=== PATIENT | male | born 1960 | race Hispanic/Latino ===

== ENCOUNTER 2016-06-03 07:47 | Day surgery (SDC) | payer MEDICAID ==
[2015-12-03 09:52] VITALS: BMI 37.9
[2016-06-03] MEDS ORDERED: Propofol 10 mg/ml Inj (20 ML) ONE (09:26)
[2016-06-03] MEDS ORDERED: Labetalol 5 mg/ml Inj 20ML IV ONE (10:32)
[2016-06-03] MEDS ORDERED: Labetalol 5 mg/ml Inj 20ML ONE (10:32)
[2016-06-03] MEDS ORDERED: Lactated Ringer's 1,000 ML IV SCH (10:45)
[2016-06-03 11:28] VITALS: TEMP 97
[2016-06-03 12:01] VITALS: BP 183/79; PULSE 83; RESP 16; O2SAT 96
== END 2016-06-03 12:25 | disposition home or self-care (01) ==
LOC: ENDO 07:47
PROVIDERS: ATTEND Internal Medicine
DX: D12.5 Benign neoplasm of sigmoid colon (principal); K64.8 Other hemorrhoids; I10 Essential (primary) hypertension; E11.9 Type 2 diabetes mellitus without complications; H40.9 Unspecified glaucoma; F32.89 Other specified depressive episodes; F41.9 Anxiety disorder, unspecified; Z83.3 Family history of diabetes mellitus; Z80.3 Family history of malignant neoplasm of breast; K58.0 Irritable bowel syndrome with diarrhea; R10.13 Epigastric pain; K76.0 Fatty (change of) liver, not elsewhere classified; Z12.11 Encounter for screening for malignant neoplasm of colon
CPT/HCPCS: 45380; 82948; 88305; J2001; J2704; J7040; J7120

== ENCOUNTER 2017-02-03 01:47 | Observation (INO) | payer MEDICAID ==
[2017-02-03 01:54] VITALS: BMI 39.9
[2017-02-03] MEDS ORDERED: Morphine 2 mg/ml ISec IVP STA (02:01)
[2017-02-03] MEDS ORDERED: Sodium Chloride 0.9% 1,000 ML IV STA (02:01)
--- NOTE | 2017-02-03 02:09 | ED PDOC ---
Arrival/HPI - General Chief Complaint: Abdominal Pain Time Seen by Provider: 02/03/17 01:51 Historian: Patient - History of Present Illness Narrative History of Present Illness (Text): 02/03/17 02:04 Og Vick is a 56 year old male, whose past medical history that includes hypertension, hyperlipidemia, diabetes, and GERD, who presents to the emergency department complaining of vomiting and abdominal pain for a few hours. Patient states that he ate shrimp and became diaphoretic. Patient denies any chest pain , fevers, shortness of breath, or any other complaints at this time. Time/Duration: 4-6 hours Symptom Onset: Gradual Symptom Course: Unchanged Severity Level: Moderate Activities at Onset: Light Context: Home Past Medical History - Provider Review Nursing Documentation Reviewed: Yes - Infectious Disease Hx of Infectious Diseases: None - Tetanus Immunization Tetanus Immunization: Unknown - Cardiac Hx Hypertension: Yes Hx Pacemaker: No - Pulmonary Hx Respiratory Disorders: No - Neurological Hx Neurological Disorder: No Hx Paralysis: No - HEENT Hx HEENT Disorder: No - Renal Hx Renal Disorder: No - Endocrine/Metabolic Hx Endocrine Disorders: Yes Hx Diabetes Mellitus Type 2: Yes - Hematological/Oncological Hx Blood Disorders: No Hx Blood Transfusions: No - Integumentary Hx Dermatological Disorder: Yes Other/Comment: BOTH LEGS WITH CHRONIC VASCULAR, AND DIABETIC SWELLING. NO OPEN ULCERATIONS AT PRESENT. LEFT FACIAL FADING ECCYMOSIS ABOVE LIP AND CHEEK - Musculoskeletal/Rheumatological Hx Musculoskeletal Disorders: No - Gastrointestinal Hx Gastrointestinal Disorders: Yes Hx Gastroesophageal Reflux: Yes - Genitourinary/Gynecological Hx Genitourinary Disorders: No - Psychiatric Hx Anxiety: Yes Hx Emotional Abuse: No Hx Substance Use: No - Past Surgical History Past Surgical History: No Previous - Surgical History Hx Tonsillectomy: Yes - Anesthesia Hx Anesthesia Reactions: No Hx Malignant Hyperthermia: No - Suicidal Assessment Feels Threatened In Home Enviroment: No Family/Social History - Physician Review Nursing Documentation Reviewed: Yes Family/Social History: No Known Family HX Smoking Status: Former Smoker Hx Alcohol Use: No Hx Substance Use: No Hx Substance Use Treatment: No Allergies/Home Meds Allergies/Adverse Reactions: Allergies Penicillins Allergy (Verified 02/03/17 13:25) ANAPHYLAXIS Home Medications: Home Meds Medication Instructions Recorded Confirmed Furosemide [Lasix] 40 mg PO DAILY 03/09/15 02/03/17 Metoprolol Succinate [Toprol Xl] 50 mg PO BID 03/09/15 02/03/17 Aspirin [Ecotrin] 81 mg PO DAILY 07/28/15 02/03/17 Gabapentin [Neurontin] 400 mg PO QID 07/28/15 02/03/17 Simvastatin [Zocor] 40 mg PO DAILY 07/28/15 02/03/17 Insulin Regular [HumuLIN R] 30 units SC TID 12/03/15 02/03/17 hydrALAZINE [Apresoline] 100 mg PO TID 12/03/15 02/03/17 Alprazolam [Xanax] 0.5 mg PO DAILY PRN 05/29/16 02/03/17 Liraglutide [Victoza 2-Long] 18 mg SC DAILY 05/29/16 02/03/17 Pantoprazole [Protonix EC Tab] 40 mg PO DAILY 05/29/16 02/03/17 Sertraline [Zoloft] 100 mg PO DAILY 05/29/16 02/03/17 Acetaminophen with Codeine 300 mg PO BID 02/03/17 02/03/17 [Acetamin-Codein 300-30 mg/12.5] Insulin Glargine,Hum.rec.anlog 90 unit SQ HS 02/03/17 02/03/17 [Basaglar Kwikpen U-100] [place]-3 Fatty Acids/Fish Oil [Fish 1 each PO QID 02/03/17 02/03/17 Oil 1,000 mg Softgel] Review of Systems - Physician Review All systems were reviewed & negative as marked: Yes - Review of Systems Constitutional: absent: Fevers, Night Sweats Eyes: absent: Vision Changes ENT: absent: Hearing Changes Respiratory: absent: SOB, Cough Cardiovascular: absent: Chest Pain Gastrointestinal: Abdominal Pain, Vomiting Genitourinary Male: absent: Dysuria Musculoskeletal: absent: Arthralgias Skin: absent: Rash, Pruritis Neurological: absent: Headache, Dizziness Endocrine: absent: Diaphoresis Hemo/Lymphatic: absent: Adenopathy Psychiatric: absent: Anxiety, Depression Physical Exam Vital Signs Reviewed: Yes Vital Signs Temp Pulse Resp BP Pulse Ox 02/03/17 11:02 86 120/80 02/03/17 10:10 85 16 120/80 96 02/03/17 09:10 80 16 111/63 95 02/03/17 08:00 82 16 112/67 96 02/03/17 07:15 86 16 121/75 96 02/03/17 04:15 88 16 124/64 96 02/03/17 02:02 134/67 02/03/17 01:58 97.8 F 84 20 95 Temperature: Afebrile Blood Pressure: Normal Pulse: Regular Respiratory Rate: Normal Appearance: Positive for: Well-Appearing, Non-Toxic, Comfortable Pain Distress: None Mental Status: Positive for: Alert and Oriented X 3 - Systems Exam Head: Present: Atraumatic, Normocephalic Pupils: Present: PERRL Extroacular Muscles: Present: EOMI Conjunctiva: Present: Normal Mouth: Present: Moist Mucous Membranes Neck: Present: Normal Range of Motion Respiratory/Chest: Present: Clear to Auscultation, Good Air Exchange. No: Respiratory Distress, Accessory Muscle Use Cardiovascular: Present: Regular Rate and Rhythm, Normal S1, S2. No: Murmurs Abdomen: Present: Tenderness, Distention (Abdomen diffusely distended and tender ) Back: Present: Normal Inspection Upper Extremity: Present: Normal Inspection. No: Cyanosis, Edema Lower Extremity: Present: Normal Inspection. No: Edema Neurological: Present: GCS=15, CN II-XII Intact, Speech Normal Skin: Present: Warm, Dry, Normal Color. No: Rashes Psychiatric: Present: Alert, Oriented x 3, Normal Insight, Normal Concentration Medical Decision Making ED Course and Treatment: 02/03/17 02:18 Impression: 56 year old male complaining of vomiting and abdominal pain for a few hours. Differential Diagnosis included but are not limited to: Plan: -- EKG -- Abdomen and Pelvis CT w/o contrast -- Blood Culture -- Urinalysis -- Labs -- Morphine, Zofran, and IV fluids -- Reassess and disposition Prior Visits: Notes and results from previous visits were reviewed. Patient was last seen in the emergency department on 12/03/15 for 2 day duration of abdominal pain and vomiting. Patient was admitted to hospitalist care for further evaluation. Progress Notes: EKG: Ordered, reviewed, and independently interpreted the EKG. Rate : 84 BPM Rhythm : NSR Interpretation : Non-specific ST-T wave changes. 02/03/17 04:29 Case discussed with medical representative, and dr rodríguez who accepts patient admission to telemetry observation for intractable vomiting. 02/04/17 00:15 - Lab Interpretations Lab Results: 02/03/17 02:22 02/03/17 02:22 Lab Results 02/03/17 04:35: PT 11.0, INR 1.01, APTT 27.4 02/03/17 03:25: Urine Color Yellow, Urine Appearance Clear, Urine pH 6.5, Ur Specific [place] 1.020, Urine Protein Trace H, Urine Glucose (UA) 500 H, Urine Ketones Negative, Urine Blood Negative, Urine Nitrate Negative, Urine Bilirubin Negative, Urine Urobilinogen 0.2, Ur Leukocyte Esterase Negative, Urine RBC 0 - 2, Urine WBC 1 - 3, Ur Epithelial Cells 0 - 2, Urine Bacteria Few 02/03/17 02:22: Hemoglobin A1c 7.9 H 02/03/17 02:22: Magnesium 1.2 L, Triglycerides 344 H, Cholesterol 202 H, LDL Cholesterol Direct 120, HDL Cholesterol 39 02/03/17 02:22: Sodium 141, Potassium 3.4 L, Chloride 96 L, Carbon Dioxide 32, Anion Gap 17, BUN 21, Creatinine 0.8, Est GFR ( Amer) > 60, Est GFR (Non- Af Amer) > 60, Random Glucose 297 H, Calcium 9.3, Total Bilirubin 0.5, AST 38, ALT 61 H, Alkaline Phosphatase 93, Lactate Dehydrogenase 582, Total Creatine Kinase 84, Troponin I < 0.01 D, Total Protein 7.2, Albumin 4.5, Globulin 2.8, Albumin/Globulin Ratio 1.6, Amylase 44, Lipase 281 02/03/17 02:22: WBC 9.3, RBC 4.43, Hgb 12.9 L, Hct 39.6 L, MCV 89.4, MCH 29.1, MCHC 32.6, RDW 13.7, Plt Count 250, MPV 10.5, Gran % 66.7, Lymph % (Auto) 23.5, [place] % (Auto) 5.3, Eos % (Auto) 3.7, Baso % (Auto) 0.8, Gran # 6.18, Lymph # 2.2 , [place] # 0.5, Eos # 0.3, Baso # 0.07 02/03/17 01:58: POC Glucose (mg/dL) 279 H I have reviewed the lab results: Yes - RAD Interpretation Radiology Orders: 02/03/17 02:01 ABD & PELVIS W/O PO OR IV CONT [CT] Stat 02/03/17 04:25 CHEST PORTABLE [RAD] Stat - Medication Orders Current Medication Orders: Acetaminophen (Tylenol 325mg Tab) 325 mg PO BID [facility] Last Admin: 02/03/17 19:33 Dose: 325 mg [facility] Pain/Vitals Document 02/03/17 19:33 VS (Rec: 02/03/17 19:33 VS [place] [id number]) Pain Reassessment Is This A Pain ReAssessment? No Presence of Pain Presence of Pain Yes Location Upper or Lower Lower Pain Location Body Site Back Description Constant Intensity 6 Scale Used Numeric Pain Behavior Facial Grimacing Aggravating Factors None Re-Assess: [facility] Pain/Vitals Document 02/03/17 20:33 VS (Rec: 02/03/17 21:43 VS [place] [id number]) Pain Reassessment Is This A Pain ReAssessment? Yes Sleep Is patient sleeping during reassessment? No Presence of Pain Presence of Pain No Alprazolam (Xanax) 0.5 mg PO DAILY PRN; Protocol PRN Reason: Anxiety Aspirin (Ecotrin) 81 mg PO DAILY [facility] Last Admin: 02/03/17 09:14 Dose: 81 mg Atorvastatin Calcium (Lipitor) 20 mg PO DIN [facility] Last Admin: 02/03/17 17:42 Dose: 20 mg Codeine Sulfate (Codeine) 30 mg PO BID [facility] Last Admin: 02/03/17 19:32 Dose: 30 mg [facility] Pain Assessment Document 02/03/17 19:32 VS (Rec: 02/03/17 19:33 VS [place] [id number]) Pain Reassessment Is this a pain reassessment? No Presence of Pain Presence of Pain Yes Pain Scale Used Pain Scale Used Numeric Location Upper or Lower Lower Pain Location Body Site Back Description Description Constant Intensity of Pain at present 6 Acceptable Level of Pain 3 Pain Behavior Facial Grimacing Aggravating Factors None Alleviating Factors/Management Medication Techniques Re-Assess: [facility] Pain Assessment Document 02/03/17 20:32 VS (Rec: 02/03/17 21:34 VS [place] [id number]) Pain Reassessment Is this a pain reassessment? Yes Sleep Is patient sleeping during reassessment? No Presence of Pain Presence of Pain No Cyclobenzaprine HCl (Flexeril) 5 mg PO HS [facility] Last Admin: 02/03/17 21:41 Dose: 5 mg Famotidine (Pepcid) 20 mg IVP DAILY [facility] Last Admin: 02/03/17 09:12 Dose: Not Given Non-Admin Reason: Patient Refused Gabapentin (Neurontin) 400 mg PO QID [facility] PRN Reason: Protocol Last Admin: 02/03/17 21:41 Dose: 400 mg Behavioural Document 02/03/17 21:41 VS (Rec: 02/03/17 21:41 VS [id number]) Maintenance Maintenance Dose Yes Re-Assess: Reassess Psych Meds Document 02/03/17 22:41 (Rec: 02/03/17 23:54 [id number]) Reassess Psych Med Effective Heparin Sodium (Porcine) (Heparin) 5,000 units SC Q8 [facility] PRN Reason: Protocol Last Admin: 02/03/17 21:42 Dose: 5,000 units Subcutaneous Administrations Document 02/03/17 21:42 VS (Rec: 02/03/17 21:42 VS [id number]) Injection Site MAR Injection Site Left Abdomen Charges for Administration # of Subcutaneous Administrations 1 Hydralazine HCl (Apresoline) 100 mg PO TID [facility] Last Admin: 02/03/17 17:41 Dose: 100 mg MAR Pulse and Blood Pressure Document 02/03/17 17:41 SG (Rec: 02/03/17 17:42 SG [id number]) Pulse Pulse Rate (60-90) 81 Blood Pressure Blood Pressure (100/60-150/90) 114/59 Insulin Detemir (Levemir) 30 unit SC [facility] Last Admin: 02/03/17 21:41 Dose: 30 unit MAR Blood Glucose Document 02/03/17 21:41 VS (Rec: 02/03/17 21:42 VS [id number]) Blood Glucose Finger Stick Blood Glucose (70-120) 216 Subcutaneous Administrations Document 02/03/17 21:41 VS (Rec: 02/03/17 21:42 VS [id number]) Injection Site MAR Injection Site Right Abdomen Charges for Administration # of Subcutaneous Administrations 1 Insulin Human Lispro (Humalog Low) 0 units SC ACHS [facility] PRN Reason: Protocol Last Admin: 02/03/17 21:42 Dose: Not Given Non-Admin Reason: Blood Sugar Parameter MAR Blood Glucose Document 02/03/17 21:42 VS (Rec: 02/03/17 21:43 VS [place] [id number]) Blood Glucose Finger Stick Blood Glucose (70-120) 216 Insulin Human Lispro (Humalog) 12 units SC [facility] Last Admin: 02/03/17 17:41 Dose: 12 units MAR Blood Glucose Document 02/03/17 17:41 SG (Rec: 02/03/17 17:41 SG [place] [id number]) Blood Glucose Finger Stick Blood Glucose (70-120) 177 Subcutaneous Administrations Document 02/03/17 17:41 SG (Rec: 02/03/17 17:41 SG [place] [id number]) Charges for Administration # of Subcutaneous Administrations 1 Metoprolol Succinate (Toprol Xl) 50 mg PO DAILY [facility] Last Admin: 02/03/17 11:02 Dose: 50 mg MAR Pulse and Blood Pressure Document 02/03/17 11:02 SC (Rec: 02/03/17 11:02 [email or web address] Pulse Pulse Rate (60-90) 86 Blood Pressure Blood Pressure (100/60-150/90) 120/80 [id number] Ethyl Esters (Lovaza) 1 gm PO QID [facility] Last Admin: 02/03/17 21:41 Dose: 1 gm Ondansetron HCl (Zofran Inj) 4 mg IVP Q6H PRN PRN Reason: Nausea/Vomiting Sertraline HCl (Zoloft) 100 mg PO DAILY [facility] Last Admin: 02/03/17 09:14 Dose: 100 mg Discontinued Medications Sodium Chloride (Sodium Chloride 0.9%) 1,000 mls @ 100 mls/hr IV .Q10H STA Stop: 02/03/17 12:00 Last Admin: 02/03/17 03:06 Dose: 100 mls/hr eMAR Start Stop Document 02/03/17 03:06 SS (Rec: 02/03/17 04:07 SS [id number]) Intravenous Solution Start Date 02/03/17 Start Time 03:06 Magnesium Sulfate 2 gm/ Sodium (Chloride) 104 mls @ 102 mls/hr IVPB ONCE ONE Stop: 02/03/17 10:22 Last Admin: 02/03/17 11:02 Dose: 102 mls/hr eMAR Start Stop Document 02/03/17 11:02 SC (Rec: 02/03/17 11:02 [facility]) Intravenous Solution Start Date 02/03/17 Start Time 11:02 End Date 02/03/17 End time 12:30 Total Infusion Time 88 Insulin Human Lispro (Humalog High) 0 units SC ACHS [facility] PRN Reason: Protocol Last Admin: 02/03/17 08:51 Dose: 12 units MAR Blood Glucose Document 02/03/17 08:51 YP (Rec: 02/03/17 08:51 YP [id number]) Blood Glucose Finger Stick Blood Glucose (70-120) 400 Subcutaneous Administrations Document 02/03/17 08:51 YP (Rec: 02/03/17 08:51 YP [id number]) Injection Site MAR Injection Site Right Arm Charges for Administration # of Subcutaneous Administrations 1 Insulin Human Regular (Humulin R) 75 units SC [facility] Last Admin: 02/03/17 12:56 Dose: 75 units MAR Blood Glucose Document 02/03/17 12:56 SG (Rec: 02/03/17 12:56 SG [id number]) Blood Glucose Finger Stick Blood Glucose (70-120) 283 Subcutaneous Administrations Document 02/03/17 12:56 SG (Rec: 02/03/17 12:56 SG [id number]) Charges for Administration # of Subcutaneous Administrations 1 Metoprolol Succinate (Toprol Xl) 50 mg PO BID [facility] Morphine Sulfate (Morphine) 2 mg IVP STAT STA Stop: 02/03/17 02:02 Last Admin: 02/03/17 02:39 Dose: 2 mg MAR Pain Assessment Document 02/03/17 02:39 SS (Rec: 02/03/17 02:39 SS [id number]) Pain Reassessment Is this a pain reassessment? No Sleep Is patient sleeping during reassessment? No Presence of Pain Presence of Pain Yes Location Pain Location Body Site Abdomen Description Pain Behavior Moaning IVP Administration Document 02/03/17 02:39 SS (Rec: 02/03/17 02:39 SS [id number]) Charges for Administration # of IVP Administrations 1 Ondansetron HCl (Zofran Inj) 4 mg IVP STAT STA Stop: 02/03/17 02:02 Last Admin: 02/03/17 02:39 Dose: 4 mg IVP Administration Document 02/03/17 02:39 SS (Rec: 02/03/17 02:39 SS [id number]) Charges for Administration # of IVP Administrations 1 Pneumococcal Polyvalent Vaccine (Pneumovax 23 Vaccine) 0.5 ml IM .ONCE ONE Stop: 02/03/17 14:05 Last Admin: 02/03/17 18:17 Dose: MAR Immunization Data Document 02/03/17 18:17 (Rec: 02/03/17 18:17 SG [id number]) Immunization Data Vaccine Information Sheet Given No Immunization Registry Document 02/03/17 18:17 (Rec: 02/03/17 18:17 SG [id number]) Immunization Registry Consent Date 02/03/17 Potassium Chloride (Potassium Chloride Oral Soln) 40 meq PO ONCE ONE Stop: 02/03/17 05:00 Last Admin: 02/03/17 05:38 Dose: 40 meq - Scribe Statement The provider has reviewed the documentation as recorded by the Ame Daniels Provider Scribe Attestation: All medical record entries made by the Scribe were at my direction and personally dictated by me. I have reviewed the chart and agree that the record accurately reflects my personal performance of the history, physical exam, medical decision making, and the department course for this patient. I have also personally directed, reviewed, and agree with the discharge instructions and disposition. Disposition/Present on Arrival - Present on Arrival Any Indicators Present on Arrival: No History of DVT/PE: No History of Uncontrolled Diabetes: Yes Urinary Catheter: No History of Decub. Ulcer: No History Surgical Site Infection Following: None - Disposition Have Diagnosis and Disposition been Completed?: Yes Diagnosis: Gastroparesis, Intractable abdominal pain Disposition: HOSPITALIZED Disposition Time: 05:10 Condition: FAIR
[2017-02-03 02:53] LABS: BASO # 0.07 K/mm3 (0.0-2.0); BASO % 0.8 % (0.0-3.0); EOS # 0.3 (0.0-0.7); EOS % 3.7 % (1.5-5.0); GRAN # 6.18 (1.4-6.5); GRAN % 66.7 % (50.0-68.0); HEMATOCRIT 39.6 % (42.0-52.0); LYMPH # 2.2 (1.2-3.4); LYMPH % 23.5 % (22.0-35.0); MEAN CELL VOLUME 89.4 fl (80.0-105.0); MEAN CORPUSCULAR HEMOGLOBIN 29.1 pg (25.0-35.0); MEAN CORPUSCULAR HGB CONC 32.6 g/dl (31.0-37.0); MEAN PLATELET VOLUME 10.5 fl (7.0-11.0); MONO # 0.5 (0.1-0.6); MONO % 5.3 % (1.0-6.0); RED CELL DISTRIBUTION WIDTH 13.7 % (11.5-14.5); WHITE BLOOD COUNT 9.3 10^3/ul (4.5-11.0)
[2017-02-03 03:02] LABS: ALB/GLOB RATIO 1.6 (1.1-1.8); ALKALINE PHOSPHATASE 93 U/L (38-126); ALT/SGPT 61 U/L (7-56); AMYLASE 44 U/L (35-125); AST/SGOT 38 U/L (17-59); BILIRUBIN,TOTAL 0.5 mg/dL (0.2-1.3); BLOOD UREA NITROGEN 21 mg/dL (7-21); CALCIUM 9.3 mg/dL (8.4-10.5); CARBON DIOXIDE 32 mmol/L (21-33); CHLORIDE 96 mmol/L (98-107); GFR AFRICAN-AMERICAN > 60; GLUCOSE,RANDOM 297 mg/dL (70-110); LIPASE 281 U/L (23-300); POTASSIUM 3.4 mmol/L (3.6-5.0); SODIUM 141 mmol/L (132-148); TOTAL PROTEIN 7.2 g/dL (5.8-8.3)
[2017-02-03 03:12] LABS: TROPONIN I < 0.01 ng/mL
[2017-02-03 03:32] LABS: PH,URINE 6.5 (4.7-8.0); URINE BILIRUBIN NEGATIVE (NEGATIVE); URINE BLOOD NEGATIVE (NEGATIVE); URINE GLUCOSE (UA) 500 mg/dL (NEGATIVE); URINE KETONE NEGATIVE (NEGATIVE); URINE LEUKOCYTE ESTERASE NEGATIVE Leu/uL (NEGATIVE); URINE PROTEIN TRACE mg/dL (<30 mg/dL); URINE UROBILINOGEN 0.2 E.U./dL (<1 E.U./dL)
[2017-02-03 03:36] LABS: URINE APPEARANCE CLEAR (CLEAR); URINE COLOR YELLOW (YELLOW)
--- NOTE | 2017-02-03 03:51 | CT ---
EXAM: CT Abdomen and Pelvis Without Intravenous Contrast CLINICAL HISTORY: 56 years old, male; Pain; Abdominal pain; Generalized; Additional info: Abd pain TECHNIQUE: Axial computed tomography images of the abdomen and pelvis without intravenous contrast. All CT scans at this facility use one or more dose reduction techniques, viz.: automated exposure control; ma/kV adjustment per patient size (including targeted exams where dose is matched to indication; i.e. head); or iterative reconstruction technique. Coronal and sagittal reformatted images were created and reviewed. COMPARISON: CT - ABD PELVIS W/O PO OR IV CONT 2015-12-03 11:31 FINDINGS: Lower thorax: No acute findings. ABDOMEN: Liver: Enlarged. Fatty infiltration. Gallbladder and bile ducts: No calcified stones. No ductal dilation. Pancreas: Unremarkable. No ductal dilation. Spleen: No splenomegaly. Adrenals: LEFT adrenal adenoma. Kidneys and ureters: No renal calculi. No hydronephrosis. Stomach and bowel: Few scattered diverticula within colon. No associated inflammatory stranding. No definite mural thickening. No obstruction. Appendix: Normal caliber. No inflammation. PELVIS: Bladder: Unremarkable. No stones. Reproductive: Unremarkable as visualized. ABDOMEN and PELVIS: Intraperitoneal space: No significant fluid collection. No free air. Bones/joints: Early degenerative changes of spine. No acute fracture. Soft tissues: Minimal skin thickening with mild subjacent stranding anterior abdominal wall, grossly stable. Tiny umbilical hernia containing fat. Tiny LEFT inguinal hernia containing fat. Vasculature: Minimal atherosclerotic disease. Retroaortic LEFT renal vein. No aneurysm. Lymph nodes: No pathologically enlarged lymph nodes. IMPRESSION: 1. No definite acute intraabdominal abnormality. 2. Incidental/non-acute findings are described above.
[2017-02-03 04:04] LABS: URINE BACTERIA FEW (NEG); URINE EPITHELIAL CELLS 0 - 2 /hpf (0-5); URINE RBC 0 - 2 /hpf (0-2)
[2017-02-03] MEDS ORDERED: Potassium Chloride 40 mEq/30 ml LIQ UD PO ONE (04:59)
[2017-02-03 05:05] LABS: INR 1.01 (0.93-1.08)
[2017-02-03 05:06] LABS: PARTIAL THROMBOPLASTIN TIME 27.4 Seconds (25.1-36.5)
--- NOTE | 2017-02-03 05:13 | CP.PCM.HP ---
<Elder Jc - Last Filed: 02/03/17 04:38> History of Present Illness - History of Present Illness History of Present Illness: CC: Vomiting Subjective: HPI: Patient is a 56 year old male with past medical history of hypertension, diabetes, uncontrolled hypercholesterolemia, obesity, fatty liver, anxiety, depression, hemorrhoids, sigmoid colon polyp, ibs, questionable gastroparesis who presents to the emergency department via EMS for evaluation and treatment of nausea, vomitting, and abdominal pain which began after a few hours ago. Patient states that he awoke 2 hours after eating shrimp with the aforementioned symptoms in addition to diaphoresis. Also endorses one bout of nonbloody diarrhea prior to eating the shrimp. States diarrhea can occur during the day due to hx of IBS. Abdominal pain is localized to the epigastrum, rated 5 /10, and is characterized as being dull. Denies recent travel and sick contacts. Patient denies intractable headache, fever, chills, dizziness, blurry vision, ringing in the ears, chest pain, shortness of breath, diarrhea, constipation, and urinary symptoms. ROS: 12 point review of systems negative except as indicated in HPI PMHx: Hypertension Diabetes Uncontrolled Hypercholesterolemia Obesity Fatty liver anxiety depression, hemorrhoids, sigmoid colon polyp PSHx: tonsillectomy Allergies: Penicillin Family Hx: dad- COPD, mother- "heart disease" Social Hx: social ETOH use, quit tobacco use 13 years ago, smoked 4 ppd for 30 years, denies illicit drug use Medications: Please see medication reconciliation Physical Examination: - Constitutional Appears: Non-toxic, No Acute Distress - Head Exam Head Exam: atraumatic, normocephalic - Eye Exam Eye Exam: Normal appearance, PERRL. absent: Scleral icterus - ENT Exam ENT Exam: Mucous Membranes Moist - Neck Exam Neck exam: Normal Inspection - Respiratory Exam Respiratory Exam: Normal Breathing Pattern - Cardiovascular Exam Cardiovascular Exam: +S1, +S2. absent: Gallop, JVD - GI/Abdominal Exam GI & Abdominal Exam: Normal Bowel Sounds, tenderness to palpation in the epigastric region. absent: Distended, Guarding, Pulsatile Mass, Rebound, Rigid - Extremities Exam Extremities exam: Negative for: calf tenderness - Neurological Exam Neurological exam: Patient is awake, alert, responds to verbal stimuli, answers questions appropriately, follows commands, and moves extremities past midline - Psychiatric Exam Psychiatric exam: Normal Affect, Normal Mood - Skin Skin Exam: warm and dry Assessment and Plan: Patient is a 56 year old male with past medical history of hypertension, diabetes, uncontrolled hypercholesterolemia, obesity, fatty liver, anxiety, depression, hemorrhoids, sigmoid colon polyp who presents to the emergency department via EMS for evaluation and treatment of nausea, vomitting, and abdominal pain which began after a few hours ago after eating shrimp Abdominal Pain/Nausea/Vomitting/Diarrhea - CT of the abdomen- No definite acute intraabdominal abnormality.Enlarged. Fatty infiltration. LEFT adrenal adenoma.Few scattered diverticula within colon. No associated inflammatory stranding - gastroenteritis vs gastroparesis vs IBS - IVF NS @ 100 - start fulls- advance diet as tolerated - zofran Qtc 456 noted - consider GI consult pending patients clinical course Elevated LFTs - ALT elevated however well below baseline - monitor closely via CMP Anemia - Hgb reviewed, trended, and appreciated- at baseline - monitor closely via CBC Electrolyte Abnormality - hypokalemia- repleted and monitor closely via CMP - mag ordered Hx of Htn - hold lasix has patient is receiving IVF - c/w metoprolol, hydralazine with holding parameters Hx of Hyperlipidemia - c/w statin - lipid profile pending Hx of Diabetes - hold home diabetic medications - fingersticks ACHS - insulin sliding scale- lispro high -goal diet is carb consistent Hx of Anxiety/Depression - continue with home sertraline and xanax Prophylaxis - DVT ppx- subq heparin - GI ppx- famotidine Patient case discussed with and plan approved by attending physician. 02/03/17 04:36 Present on Admission - Present on Admission Any Indicators Present on Admission: No Past Patient History - Infectious Disease Hx of Infectious Diseases: None - Tetanus Immunizations Tetanus Immunization: Unknown - Past Medical History & Family History Past Medical History?: Yes - Past Social History Smoking Status: Former Smoker - CARDIAC Hx Hypertension: Yes Hx Pacemaker: No - PULMONARY Hx Respiratory Disorders: No - NEUROLOGICAL Hx Neurological Disorder: No Hx Paralysis: No - HEENT Hx HEENT Problems: No - RENAL Hx Chronic Kidney Disease: No - ENDOCRINE/METABOLIC Hx Endocrine Disorders: Yes Hx Diabetes Mellitus Type 2: Yes - HEMATOLOGICAL/ONCOLOGICAL Hx Blood Disorders: No Hx Blood Transfusions: No - INTEGUMENTARY Hx Dermatological Problems: Yes Other/Comment: BOTH LEGS WITH CHRONIC VASCULAR, AND DIABETIC SWELLING. NO OPEN ULCERATIONS AT PRESENT. LEFT FACIAL FADING ECCYMOSIS ABOVE LIP AND CHEEK - MUSCULOSKELETAL/RHEUMATOLOGICAL Hx Musculoskeletal Disorders: No - GASTROINTESTINAL Hx Gastrointestinal Disorders: Yes Hx Gastroesophageal Reflux: Yes - GENITOURINARY/GYNECOLOGICAL Hx Genitourinary Disorders: No - PSYCHIATRIC Hx Anxiety: Yes Hx Emotional Abuse: No Hx Substance Use: No - SURGICAL HISTORY Hx Tonsillectomy: Yes - ANESTHESIA Hx Anesthesia Reactions: No Hx Malignant Hyperthermia: No Meds Allergies/Adverse Reactions: Allergies Allergy/AdvReac Type Severity Reaction Status Date / Time Penicillins Allergy ANAPHYLAXIS Verified 02/03/17 13:25 Results - Vital Signs Recent Vital Signs: Last Vital Signs Temp 97.8 F 02/03/17 01:58 Pulse 84 02/03/17 01:58 Resp 20 02/03/17 01:58 BP 134/67 02/03/17 02:02 Pulse Ox 95 02/03/17 01:58 - Labs Result Diagrams: 02/03/17 02:22 02/03/17 02:22 Labs: Laboratory Results - last 24 hr 02/03/17 02/03/17 02/03/17 01:58 02:22 02:22 WBC 9.3 RBC 4.43 Hgb 12.9 L Hct 39.6 L MCV 89.4 MCH 29.1 MCHC 32.6 RDW 13.7 Plt Count 250 MPV 10.5 Gran % 66.7 Lymph % (Auto) 23.5 [place] % (Auto) 5.3 Eos % (Auto) 3.7 Baso % (Auto) 0.8 Gran # 6.18 Lymph # 2.2 [place] # 0.5 Eos # 0.3 Baso # 0.07 Sodium 141 Potassium 3.4 L Chloride 96 L Carbon Dioxide 32 Anion Gap 17 BUN 21 Creatinine 0.8 Est GFR ( Amer) > 60 Est GFR (Non-Af Amer) > 60 POC Glucose (mg/dL) 279 H Random Glucose 297 H Calcium 9.3 Total Bilirubin 0.5 AST 38 ALT 61 H Alkaline Phosphatase 93 Lactate Dehydrogenase 582 Total Creatine Kinase 84 Troponin I < 0.01 D Total Protein 7.2 Albumin 4.5 Globulin 2.8 Albumin/Globulin Ratio 1.6 Amylase 44 Lipase 281 Urine Color Urine Appearance Urine pH Ur Specific [place] Urine Protein Urine Glucose (UA) Urine Ketones Urine Blood Urine Nitrate Urine Bilirubin Urine Urobilinogen Ur Leukocyte Esterase Urine RBC Urine WBC Ur Epithelial Cells Urine Bacteria 02/03/17 03:25 WBC RBC Hgb Hct MCV MCH MCHC RDW Plt Count MPV Gran % Lymph % (Auto) [place] % (Auto) Eos % (Auto) Baso % (Auto) Gran # Lymph # [place] # Eos # Baso # Sodium Potassium Chloride Carbon Dioxide Anion Gap BUN Creatinine Est GFR ( Amer) Est GFR (Non-Af Amer) POC Glucose (mg/dL) Random Glucose Calcium Total Bilirubin AST ALT Alkaline Phosphatase Lactate Dehydrogenase Total Creatine Kinase Troponin I Total Protein Albumin Globulin Albumin/Globulin Ratio Amylase Lipase Urine Color Yellow Urine Appearance Clear Urine pH 6.5 Ur Specific [place] 1.020 Urine Protein Trace H Urine Glucose (UA) 500 H Urine Ketones Negative Urine Blood Negative Urine Nitrate Negative Urine Bilirubin Negative Urine Urobilinogen 0.2 Ur Leukocyte Esterase Negative Urine RBC 0 - 2 Urine WBC 1 - 3 Ur Epithelial Cells 0 - 2 Urine Bacteria Few <Mila,Helder Q - Last Filed: 02/05/17 20:21> Results - Vital Signs Recent Vital Signs: Last Vital Signs Temp 98 F 02/04/17 08:14 Pulse 83 02/04/17 08:14 Resp 20 02/04/17 08:14 BP 152/69 H 02/04/17 14:00 Pulse Ox 97 02/04/17 08:14 - Labs Result Diagrams: 02/04/17 05:30 02/04/17 05:30 Attending/Attestation - Attestation I have personally seen and examined this patient.: Yes I have fully participated in the care of the patient.: Yes I have reviewed all pertinent clinical information: Yes
[2017-02-03 06:41] LABS: MAGNESIUM 1.2 mg/dL (1.7-2.2)
[2017-02-03] MEDS ORDERED: Insulin Lispro (HUMAlog) HIGH Coverage SC SCH (07:30)
[2017-02-03 08:05] LABS: BASO # 0.05 K/mm3 (0.0-2.0); BASO % 0.6 % (0.0-3.0); EOS # 0.1 (0.0-0.7); EOS % 0.9 % (1.5-5.0); GRAN # 5.9 (1.4-6.5); GRAN % 73.1 % (50.0-68.0); HEMATOCRIT 36.5 % (42.0-52.0); LYMPH # 1.7 (1.2-3.4); LYMPH % 21.6 % (22.0-35.0); MEAN CELL VOLUME 89.9 fl (80.0-105.0); MEAN CORPUSCULAR HEMOGLOBIN 29.1 pg (25.0-35.0); MEAN CORPUSCULAR HGB CONC 32.3 g/dl (31.0-37.0); MONO # 0.3 (0.1-0.6); MONO % 3.8 % (1.0-6.0); RED CELL DISTRIBUTION WIDTH 13.8 % (11.5-14.5); WHITE BLOOD COUNT 8.1 10^3/ul (4.5-11.0)
--- NOTE | 2017-02-03 08:15 | RAD ---
HISTORY: Chest pain. Portable study 05:15. COMPARISON: 12/06/2015. FINDINGS: LUNGS: No active pulmonary disease. PLEURA: No significant pleural effusion identified, no pneumothorax apparent. CARDIOVASCULAR: Normal. OSSEOUS STRUCTURES: No significant abnormalities. VISUALIZED UPPER ABDOMEN: Normal. OTHER FINDINGS: None. IMPRESSION: No active disease. No significant interval change compared to the prior examination(s).
[2017-02-03 08:27] LABS: TROPONIN I 0.02 ng/mL
[2017-02-03 08:34] LABS: ALB/GLOB RATIO 1.4 (1.1-1.8); ALKALINE PHOSPHATASE 77 U/L (38-126); ALT/SGPT 52 U/L (7-56); AST/SGOT 41 U/L (17-59); BILIRUBIN,TOTAL 0.5 mg/dL (0.2-1.3); BLOOD UREA NITROGEN 20 mg/dL (7-21); CALCIUM 8.7 mg/dL (8.4-10.5); CARBON DIOXIDE 29 mmol/L (21-33); CHLORIDE 96 mmol/L (98-107); GFR AFRICAN-AMERICAN > 60; POTASSIUM 4.3 mmol/L (3.6-5.0); SODIUM 138 mmol/L (132-148); TOTAL PROTEIN 7.1 g/dL (5.8-8.3)
[2017-02-03 08:42] LABS: GLUCOSE,RANDOM 449 mg/dL (70-110)
[2017-02-03] MEDS: Omega-3-Acid Ethyl Esters 1 GM Cap PO SCH ×4 (09:15→21:41)
[2017-02-03] MEDS ORDERED: Magnesium Sulfate 2 GM in Sodium Chloride 0.9% 100 ML IVPB ONE (09:21)
[2017-02-03] MEDS ORDERED: Metoprolol Succinate 50 mg XL Tab PO SCH ×2 (10:00)
[2017-02-03] MEDS: Metoprolol Succinate 50 mg XL Tab PO SCH (11:02)
[2017-02-03] MEDS ORDERED: Insulin Regular 1 UNITS/0.01 ML ML SC SCH (11:30)
[2017-02-03] MEDS ORDERED: Pneumococcal 23-Valent Vaccine IM ONE (14:04)
[2017-02-03] MEDS ORDERED: Influenza Vaccine 60 mcg/0.5 mL SYR (4YR UP) IM ONE (14:04)
[2017-02-03 14:30] LABS: TROPONIN I < 0.01 ng/mL
[2017-02-03] MEDS: Insulin Lispro (humaLOG) LOW Coverage SC SCH ×2 (17:34→21:42)
[2017-02-03] MEDS: Insulin Lispro 1 UNITS/0.01 ML SC SCH (17:41)
[2017-02-03] MEDS ORDERED: Insulin Detemir 100 units/ml Vial (Levemir) SC SCH (22:00)
--- NOTE | 2017-02-04 00:33 | CARD ---
APPROVED REPORT EKG Measurement Heart [id number] <Conclusion> Sinus rhythm with 1st degree AV block Minimal voltage criteria for LVH, may be normal variant Borderline ECG
--- NOTE | 2017-02-04 01:07 | CON ---
ENDOCRINOLOGY CONSULT LOCATION: Room 369. HISTORY OF PRESENT ILLNESS: This is a 56-year-old male with known history of type 2 insulin-requiring diabetes, presenting here with nausea, dyspepsia, and intractable vomiting episodes following the intake of some of shrimp and is now undergoing GI evaluation and also being referred for diabetic evaluation and management. PAST MEDICAL HISTORY: History of type 2 insulin-requiring diabetes, on a combination of Basaglar given as 90 units subcu at bedtime daily with regular insulin given as 30 units t.i.d. before meals as ordered. He is also on Victoza given as 1.8 mg subcu once daily as ordered. History of hypertension and dyslipidemia; history of possible diabetic gastroparesis, but the exact documentation is yet to be confirmed at this time; history of fatty liver and underlying obesity; moreover history of generalized anxiety and depression, and currently on psychotropic medications; history of hypertension and dyslipidemia as mentioned; also history of prior colonic polyposis and hemorrhoids by history. FAMILY HISTORY: Positive for diabetes and hypertension. SOCIAL HISTORY: The patient has supportive family. Admits to social use of alcohol and prior history of nicotine dependence for over 30 years and quit over 10 years ago. REVIEW OF SYSTEMS: As mentioned above, admits to generalized body weakness with easy fatigability and tiredness with suboptimal energy level. Also admits to episodic bouts of dizziness and lightheadedness, worse on the day of admission. No chest pains or palpitations or PNDs. His oral intake has been variable with nausea, dyspepsia and vague upper abdominal pains radiating to the entire abdominal area with progressive intensity till the time of admission. Also admits to intractable vomiting episodes as noted. He denies any alterations of bowel and urinary patterns otherwise. PHYSICAL EXAMINATION: GENERAL/VITAL SIGNS: This is an obese male, in no apparent distress with a blood pressure of 150/90, pulse of 70 beats per minute and regular, temperature 98, respirations 20, height is 5 feet 5 inches, weight is 240 pounds. HEENT: Head: Normocephalic. Eyes: Anicteric with pink conjunctivae. Funduscopy not possible at this time. Ears, Nose and Throat: Otherwise normal. NECK: Supple. Thyroid gland is normal in size. No carotid bruits or cervical adenopathy. CARDIOPULMONARY: Adynamic precordium, S1 and S2 is rapid and regular. LUNGS: Clear to auscultation. ABDOMEN: Obese, soft with positive bowel sounds. EXTREMITIES: No peripheral edema. Pulses are +2 bilaterally. LABORATORY DATA: His chemistry showed a BUN of 20, sodium 138, potassium 4.3, chloride 96, CO2 of 29, glucose 449, and creatinine 0.8. His cholesterol is 202, triglycerides 344. ASSESSMENT: This is a 56-year-old male with uncontrolled and decompensated type 2 insulin-requiring diabetes, presenting here with intractable vomiting episodes and underlying progressive intensity of abdominal pain, and most likely etiology would be the so called acute food poisoning, although we have to exclude any underlying diabetic gastroparesis and/or any other colonic pathology. He also has underlying morbid obesity which will contribute to the increased insulin resistance and further impaired glucose tolerance thereof. PLAN OF MANAGEMENT: We will modify his current basal and bolus insulin regimen because of the recent GI discomfort and pathology, and switch him over to a more physiologic basal and bolus insulin regimen as ordered. We will give him Humalog 12 units t.i.d. before meals to start today. We will also add Levemir given as 30 units subcu at bedtime daily to start tonight. We will modify the coverage scale to obviate hypoglycemia and detailed orders have been given. We will obtain serial chemistries and supplement accordingly as needed. Hemoglobin A1c will be done to confirm his prior glycemic control as ordered. We will obtain diabetic education consult and dietary evaluation for weight loss efforts and healthier food choices. Mirian Mary MD
[2017-02-04 06:46] LABS: BASO # 0.07 K/mm3 (0.0-2.0); BASO % 0.9 % (0.0-3.0); EOS # 0.3 (0.0-0.7); EOS % 3.5 % (1.5-5.0); GRAN # 4.64 (1.4-6.5); GRAN % 60.5 % (50.0-68.0); LYMPH # 2.2 (1.2-3.4); LYMPH % 29.2 % (22.0-35.0); MEAN CORPUSCULAR HEMOGLOBIN 28.7 pg (25.0-35.0); MEAN CORPUSCULAR HGB CONC 31.9 g/dl (31.0-37.0); MEAN PLATELET VOLUME 10.5 fl (7.0-11.0); MONO # 0.5 (0.1-0.6); MONO % 5.9 % (1.0-6.0); RED CELL DISTRIBUTION WIDTH 13.9 % (11.5-14.5); WHITE BLOOD COUNT 7.7 10^3/ul (4.5-11.0)
[2017-02-04 07:01] LABS: ALB/GLOB RATIO 1.2 (1.1-1.8); ALKALINE PHOSPHATASE 85 U/L (38-126); ALT/SGPT 55 U/L (7-56); AST/SGOT 29 U/L (17-59); BILIRUBIN,TOTAL 0.6 mg/dL (0.2-1.3); BLOOD UREA NITROGEN 16 mg/dL (7-21); CALCIUM 8.7 mg/dL (8.4-10.5); CARBON DIOXIDE 28 mmol/L (21-33); CHLORIDE 101 mmol/L (98-107); GFR AFRICAN-AMERICAN > 60; GLUCOSE,RANDOM 244 mg/dL (70-110); POTASSIUM 3.6 mmol/L (3.6-5.0); SODIUM 139 mmol/L (132-148); TOTAL PROTEIN 6.9 g/dL (5.8-8.3)
[2017-02-04 08:14] VITALS: PULSE 83; RESP 20; TEMP 98; O2SAT 97
[2017-02-04] MEDS: Insulin Lispro (humaLOG) LOW Coverage SC SCH ×2 (08:31→14:02)
[2017-02-04] MEDS: Insulin Lispro 1 UNITS/0.01 ML SC SCH ×2 (08:54→11:26)
[2017-02-04] MEDS: Omega-3-Acid Ethyl Esters 1 GM Cap PO SCH ×2 (09:32→14:00)
[2017-02-04] MEDS: Metoprolol Succinate 50 mg XL Tab PO SCH (09:33)
[2017-02-04 14:04] VITALS: BP 152/69
[2017-02-04] MEDS ORDERED: Insulin Lispro 1 UNITS/0.01 ML SC SCH (16:30)
--- NOTE | 2017-02-04 19:26 | CP.PCM.DIS ---
<Yulia Newell - Last Filed: 02/04/17 19:27> Provider - Provider Date of Admission: 02/03/17 05:08 Attending physician: Landy Lake MD Consults: Dr. Mary Subassembly Assembler Time Spent in preparation of Discharge (in minutes): 50 Hospital Course - Lab Results Lab Results: Most Recent Lab Values WBC 7.7 10^3/ul (4.5-11.0) 02/04/17 05:30 RBC 4.11 10^6/uL (3.5-6.1) 02/04/17 05:30 Hgb 11.8 g/dL (14.0-18.0) L 02/04/17 05:30 Hct 37.0 % (42.0-52.0) L 02/04/17 05:30 MCV 90.0 fl (80.0-105.0) 02/04/17 05:30 MCH 28.7 pg (25.0-35.0) 02/04/17 05:30 MCHC 31.9 g/dl (31.0-37.0) 02/04/17 05:30 RDW 13.9 % (11.5-14.5) 02/04/17 05:30 Plt Count 252 10^3/uL (120.0-450.0) 02/04/17 05:30 MPV 10.5 fl (7.0-11.0) 02/04/17 05:30 Gran % 60.5 % (50.0-68.0) 02/04/17 05:30 Lymph % (Auto) 29.2 % (22.0-35.0) 02/04/17 05:30 [place] % (Auto) 5.9 % (1.0-6.0) 02/04/17 05:30 Eos % (Auto) 3.5 % (1.5-5.0) 02/04/17 05:30 Baso % (Auto) 0.9 % (0.0-3.0) 02/04/17 05:30 Gran # 4.64 (1.4-6.5) 02/04/17 05:30 Lymph # 2.2 (1.2-3.4) 02/04/17 05:30 [place] # 0.5 (0.1-0.6) 02/04/17 05:30 Eos # 0.3 (0.0-0.7) 02/04/17 05:30 Baso # 0.07 K/mm3 (0.0-2.0) 02/04/17 05:30 PT 11.0 SECONDS (9.4-12.5) 02/03/17 04:35 INR 1.01 (0.93-1.08) 02/03/17 04:35 APTT 27.4 Seconds (25.1-36.5) 02/03/17 04:35 Sodium 139 mmol/L (132-148) 02/04/17 05:30 Potassium 3.6 mmol/L (3.6-5.0) 02/04/17 05:30 Chloride 101 mmol/L (98-107) 02/04/17 05:30 Carbon Dioxide 28 mmol/L (21-33) 02/04/17 05:30 Anion Gap 13 (10-20) 02/04/17 05:30 BUN 16 mg/dL (7-21) 02/04/17 05:30 Creatinine 0.8 mg/dl (0.8-1.5) 02/04/17 05:30 Est GFR ( Amer) > 60 02/04/17 05:30 Est GFR (Non-Af Amer) > 60 02/04/17 05:30 POC Glucose (mg/dL) 268 mg/dL (65-110) H 02/04/17 11:15 Random Glucose 244 mg/dL (70-110) H 02/04/17 05:30 Hemoglobin A1c 7.9 % (4.2-6.5) H 02/03/17 02:22 Calcium 8.7 mg/dL (8.4-10.5) 02/04/17 05:30 Magnesium 1.2 mg/dL (1.7-2.2) L 02/03/17 02:22 Total Bilirubin 0.6 mg/dL (0.2-1.3) 02/04/17 05:30 AST 29 U/L (17-59) 02/04/17 05:30 ALT 55 U/L (7-56) 02/04/17 05:30 Alkaline Phosphatase 85 U/L (38-126) 02/04/17 05:30 Lactate Dehydrogenase 510 U/L (333-699) 02/03/17 14:05 Total Creatine Kinase 83 U/L (35-230) 02/03/17 14:05 Troponin I < 0.01 ng/mL D 02/03/17 14:05 Total Protein 6.9 g/dL (5.8-8.3) 02/04/17 05:30 Albumin 3.8 g/dL (3.0-4.8) 02/04/17 05:30 Globulin 3.1 gm/dL 02/04/17 05:30 Albumin/Globulin Ratio 1.2 (1.1-1.8) 02/04/17 05:30 Triglycerides 344 mg/dL (35-160) H 02/03/17 02:22 Cholesterol 202 mg/dL (130-200) H 02/03/17 02:22 LDL Cholesterol Direct 120 mg/dL (0-129) 02/03/17 02:22 HDL Cholesterol 39 mg/dL (29-60) 02/03/17 02:22 Amylase 44 U/L (35-125) 02/03/17 02:22 Lipase 281 U/L (23-300) 02/03/17 02:22 Urine Color Yellow (YELLOW) 02/03/17 03:25 Urine Appearance Clear (CLEAR) 02/03/17 03:25 Urine pH 6.5 (4.7-8.0) 02/03/17 03:25 Ur Specific [place] 1.020 (1.005-1.035) 02/03/17 03:25 Urine Protein Trace mg/dL (<30 mg/dL) H 02/03/17 03:25 Urine Glucose (UA) 500 mg/dL (NEGATIVE) H 02/03/17 03:25 Urine Ketones Negative mg/dL (NEGATIVE) 02/03/17 03:25 Urine Blood Negative (NEGATIVE) 02/03/17 03:25 Urine Nitrate Negative (NEGATIVE) 02/03/17 03:25 Urine Bilirubin Negative (NEGATIVE) 02/03/17 03:25 Urine Urobilinogen 0.2 E.U./dL (<1 E.U./dL) 02/03/17 03:25 Ur Leukocyte Esterase Negative Marie/uL (NEGATIVE) 02/03/17 03:25 Urine RBC 0 - 2 /hpf (0-2) 02/03/17 03:25 Urine WBC 1 - 3 /hpf (0-6) 02/03/17 03:25 Ur Epithelial Cells 0 - 2 /hpf (0-5) 02/03/17 03:25 Urine Bacteria Few (NEG) 02/03/17 03:25 - Hospital Course Hospital Course: 56 year old with a past medical history of DM II, IBS, and an anxiety disorder who presented with acute onset nausea, vomiting, and vertigo 2 hours after eating a shrimp meal. In the Emergency Department, initial labs and imaging were negative for ACS or and an acute abdominal process. The patient's nausea and vomiting resolved after being given antiemetic medications and analgesias in the ED, but his vertigo persisted but gradually dissipated with time and physical therapy. The patient home medications were resumed, and endocrinology, Dr. Mary, was consulted given the patient's high blood glucose levels. He was started on a liquid diet and advanced to a soft diet which he tolerated well and without any recurrence of nausea or vomiting. He was discharged with strict instructions to follow up with his primary medical doctor and his communications associate. - Date & Time of H&P Date of H&P: 02/04/17 Time of H&P: 14:00 Discharge Exam - Head Exam Head Exam: ATRAUMATIC, NORMOCEPHALIC - Eye Exam Eye Exam: EOMI, Normal appearance, PERRL - ENT Exam ENT Exam: Mucous Membranes Moist, Normal Oropharynx - Neck Exam Neck exam: Normal Inspection - Respiratory Exam Respiratory Exam: Clear to PA & Lateral, NORMAL BREATHING PATTERN - Cardiovascular Exam Cardiovascular Exam: RRR, +S1, +S2 - GI/Abdominal Exam GI & Abdominal Exam: Normal Bowel Sounds. absent: Guarding, Rebound - Extremities Exam Extremities exam: normal inspection - Back Exam Back exam: NORMAL INSPECTION. absent: CVA tenderness (L), CVA tenderness (R) - Neurological Exam Neurological exam: Alert, CN II-XII Intact, Normal Gait, Oriented x3 - Psychiatric Exam Psychiatric exam: Normal Affect, Normal Mood - Skin Skin Exam: Dry, Intact, Normal Color, Warm Discharge Plan - Follow Up Plan Condition: FAIR Disposition: HOME/ ROUTINE Instructions: Diabetes Mellitus Type 2 in Adults (DC), Acute Nausea and Vomiting (DC), Acute Abdominal Pain (DC), Abdominal Pain (ED) Additional Instructions: 1) Patient to follow up with PMD within the next 7 days. 2) Patient to follow up with communications associate as discussed. 3) Patient to return to the ED for any worsening symptoms. 4) Patient to check blood glucose levels before each mean and first thing in the morning. <Landy Lake - Last Filed: 02/06/17 16:19> Provider - Provider Date of Admission: 02/03/17 05:08 Attending physician: Landy Lake MD Hospital Course - Lab Results Lab Results: Most Recent Lab Values WBC 7.7 10^3/ul (4.5-11.0) 02/04/17 05:30 RBC 4.11 10^6/uL (3.5-6.1) 02/04/17 05:30 Hgb 11.8 g/dL (14.0-18.0) L 02/04/17 05:30 Hct 37.0 % (42.0-52.0) L 02/04/17 05:30 MCV 90.0 fl (80.0-105.0) 02/04/17 05:30 MCH 28.7 pg (25.0-35.0) 02/04/17 05:30 MCHC 31.9 g/dl (31.0-37.0) 02/04/17 05:30 RDW 13.9 % (11.5-14.5) 02/04/17 05:30 Plt Count 252 10^3/uL (120.0-450.0) 02/04/17 05:30 MPV 10.5 fl (7.0-11.0) 02/04/17 05:30 Gran % 60.5 % (50.0-68.0) 02/04/17 05:30 Lymph % (Auto) 29.2 % (22.0-35.0) 02/04/17 05:30 [place] % (Auto) 5.9 % (1.0-6.0) 02/04/17 05:30 Eos % (Auto) 3.5 % (1.5-5.0) 02/04/17 05:30 Baso % (Auto) 0.9 % (0.0-3.0) 02/04/17 05:30 Gran # 4.64 (1.4-6.5) 02/04/17 05:30 Lymph # 2.2 (1.2-3.4) 02/04/17 05:30 [place] # 0.5 (0.1-0.6) 02/04/17 05:30 Eos # 0.3 (0.0-0.7) 02/04/17 05:30 Baso # 0.07 K/mm3 (0.0-2.0) 02/04/17 05:30 PT 11.0 SECONDS (9.4-12.5) 02/03/17 04:35 INR 1.01 (0.93-1.08) 02/03/17 04:35 APTT 27.4 Seconds (25.1-36.5) 02/03/17 04:35 Sodium 139 mmol/L (132-148) 02/04/17 05:30 Potassium 3.6 mmol/L (3.6-5.0) 02/04/17 05:30 Chloride 101 mmol/L (98-107) 02/04/17 05:30 Carbon Dioxide 28 mmol/L (21-33) 02/04/17 05:30 Anion Gap 13 (10-20) 02/04/17 05:30 BUN 16 mg/dL (7-21) 02/04/17 05:30 Creatinine 0.8 mg/dl (0.8-1.5) 02/04/17 05:30 Est GFR ( Amer) > 60 02/04/17 05:30 Est GFR (Non-Af Amer) > 60 02/04/17 05:30 POC Glucose (mg/dL) 268 mg/dL (65-110) H 02/04/17 11:15 Random Glucose 244 mg/dL (70-110) H 02/04/17 05:30 Hemoglobin A1c 7.9 % (4.2-6.5) H 02/03/17 02:22 Calcium 8.7 mg/dL (8.4-10.5) 02/04/17 05:30 Magnesium 1.2 mg/dL (1.7-2.2) L 02/03/17 02:22 Total Bilirubin 0.6 mg/dL (0.2-1.3) 02/04/17 05:30 AST 29 U/L (17-59) 02/04/17 05:30 ALT 55 U/L (7-56) 02/04/17 05:30 Alkaline Phosphatase 85 U/L (38-126) 02/04/17 05:30 Lactate Dehydrogenase 510 U/L (333-699) 02/03/17 14:05 Total Creatine Kinase 83 U/L (35-230) 02/03/17 14:05 Troponin I < 0.01 ng/mL D 02/03/17 14:05 Total Protein 6.9 g/dL (5.8-8.3) 02/04/17 05:30 Albumin 3.8 g/dL (3.0-4.8) 02/04/17 05:30 Globulin 3.1 gm/dL 02/04/17 05:30 Albumin/Globulin Ratio 1.2 (1.1-1.8) 02/04/17 05:30 Triglycerides 344 mg/dL (35-160) H 02/03/17 02:22 Cholesterol 202 mg/dL (130-200) H 02/03/17 02:22 LDL Cholesterol Direct 120 mg/dL (0-129) 02/03/17 02:22 HDL Cholesterol 39 mg/dL (29-60) 02/03/17 02:22 Amylase 44 U/L (35-125) 02/03/17 02:22 Lipase 281 U/L (23-300) 02/03/17 02:22 Urine Color Yellow (YELLOW) 02/03/17 03:25 Urine Appearance Clear (CLEAR) 02/03/17 03:25 Urine pH 6.5 (4.7-8.0) 02/03/17 03:25 Ur Specific [place] 1.020 (1.005-1.035) 02/03/17 03:25 Urine Protein Trace mg/dL (<30 mg/dL) H 02/03/17 03:25 Urine Glucose (UA) 500 mg/dL (NEGATIVE) H 02/03/17 03:25 Urine Ketones Negative mg/dL (NEGATIVE) 02/03/17 03:25 Urine Blood Negative (NEGATIVE) 02/03/17 03:25 Urine Nitrate Negative (NEGATIVE) 02/03/17 03:25 Urine Bilirubin Negative (NEGATIVE) 02/03/17 03:25 Urine Urobilinogen 0.2 E.U./dL (<1 E.U./dL) 02/03/17 03:25 Ur Leukocyte Esterase Negative Marie/uL (NEGATIVE) 02/03/17 03:25 Urine RBC 0 - 2 /hpf (0-2) 02/03/17 03:25 Urine WBC 1 - 3 /hpf (0-6) 02/03/17 03:25 Ur Epithelial Cells 0 - 2 /hpf (0-5) 02/03/17 03:25 Urine Bacteria Few (NEG) 02/03/17 03:25 Attending/Attestation - Attestation I have personally seen and examined this patient.: Yes I have fully participated in the care of the patient.: Yes I have reviewed all pertinent clinical information, including history, physical exam and plan: Yes Notes (Text): 02/06/17 16:15 Diagnosis. 1.Intractable Nausea and vomiting Resolved 2.Vertigo resolved 3.Uncontrolled DM Patient was seen and examined with medical office technologist. 56 year old with a past medical history of DM II, IBS, and an anxiety disorder who presented with acute onset nausea, vomiting, and vertigo Patient nausea and vomiting has resolved.His vertigo is also improved.He is tolerating food and is ambulatory at the time of discharge. His diabetic medications were adjusted during his stay in the hospitalization.He has been advised to monitor his blood suga three times a day and keep record for PCP Management plan was discussed in detail with patient Education was provided. 02/06/17 16:18
--- NOTE | 2017-02-04 19:51 | PN ---
DATE: ENDOCRINOLOGY FOLLOWUP NOTE LOCATION: Room 369. SUBJECTIVE: This is a 56-year-old male with recent evaluation for hyperosmolar hyperglycemic state and dehydration noted both clinically and biochemically as noted thereof. Plan of management was discussed with the patient's staff. His oral intake has been variable and suboptimal with nausea, dyspepsia, and vague upper abdominal pain. His glycemic levels are fluctuating and have ranged from 268 to 273 mg/dL. His latest chemistries showed a BUN of 16, sodium 139, potassium 3.6, chloride 101, CO2 of 28, glucose 244 and creatinine 1.6. So at this time, we will modify once again his basal and bolus insulin regimen as the patient is clearly markedly insulin resistant as noted and has the insulin requirements needed to optimize his metabolic control. We will increase the Humalog to 18 units subcutaneously t.i.d. before meals to start at dinnertime today as ordered. We will also increase the Levemir to 44 units subcutaneously at bedtime daily as given. We will titrate incrementally as indicated to optimize metabolic control. We will follow with you. Mirian Mary MD
[2017-02-04] MEDS ORDERED: Insulin Detemir 100 units/ml Vial (Levemir) SC SCH (22:00)
== END 2017-02-04 16:52 | disposition home or self-care (01) ==
LOC: ED 01:47 → ERH 05:08 → 3RNO 11:38
PROVIDERS: ADMIT Internal Medicine; ATTEND Internal Medicine
DX: E11.43 Type 2 diabetes mellitus with diabetic autonomic (poly)neuropathy (principal); K31.84 Gastroparesis; K58.0 Irritable bowel syndrome with diarrhea; K21.9 Gastro-esophageal reflux disease without esophagitis; I10 Essential (primary) hypertension; E78.00 Pure hypercholesterolemia, unspecified; E87.6 Hypokalemia; E66.01 Morbid (severe) obesity due to excess calories; D64.9 Anemia, unspecified; K76.0 Fatty (change of) liver, not elsewhere classified; F41.8 Other specified anxiety disorders; Z79.4 Long term (current) use of insulin; Z87.891 Personal history of nicotine dependence
CPT/HCPCS: 36415; 71010; 74176; 80053; 80061; 81001; 82150; 82550; 82948; 83036; 83615; 83690; 83735; 84484; 85025; 85610; 85730; 87040; 93005; 96365; 96372; 96374; 97116; 97161; 99285; G0378; G8978; G8979; G8980; J1644; J2270; J2405; J3475; J3480; J7040

== ENCOUNTER 2017-02-17 22:06 | Emergency (ER) | payer MEDICAID ==
[2017-02-17 22:13] VITALS: BMI 39.7
[2017-02-17 22:14] VITALS: TEMP 98.2
[2017-02-17] MEDS ORDERED: Sodium Chloride 0.9% 500 ML IV STA (22:23)
--- NOTE | 2017-02-17 22:23 | ED PDOC ---
Arrival/HPI - General Chief Complaint: Abdominal Pain Time Seen by Provider: 02/17/17 22:07 Historian: Patient - History of Present Illness Narrative History of Present Illness (Text): 02/17/17 22:15 56 year old male, whose past medical history includes hypertension, diabetes, uncontrolled hypercholesterolemia, anxiety, depression, hemorrhoids, sigmoid colon polyp, IBS, questionable gastroparesis, presents to the emergency department complaining of abdominal pain associated with nausea and vomiting for the past 20 minutes. Patient reports he was fine this morning and is compliant with all his medications. Patient was recently discharged on . Patient denies any fever, chills, chest pain, shortness of breath, diarrhea , urinary symptoms, back pain, neck pain, headache, dizziness, or any other complaints. PMD: Dr. Diop Time/Duration: Other (20 minutes ago) Symptom Onset: Sudden Symptom Course: Unchanged Activities at Onset: Light Context: Home Past Medical History - Provider Review Nursing Documentation Reviewed: Yes - Infectious Disease Hx of Infectious Diseases: None - Tetanus Immunization Tetanus Immunization: Unknown - Cardiac Hx Hypertension: Yes - Pulmonary Hx Respiratory Disorders: No - Neurological Hx Neurological Disorder: No Hx Paralysis: No - HEENT Hx HEENT Disorder: No - Renal Hx Renal Disorder: No - Endocrine/Metabolic Hx Diabetes Mellitus Type 2: Yes - Hematological/Oncological Hx Blood Disorders: No Hx Blood Transfusions: No - Integumentary Hx Dermatological Disorder: Yes Other/Comment: BOTH LEGS WITH CHRONIC VASCULAR, AND DIABETIC SWELLING. NO OPEN ULCERATIONS AT PRESENT. LEFT FACIAL FADING ECCYMOSIS ABOVE LIP AND CHEEK - Musculoskeletal/Rheumatological Hx Musculoskeletal Disorders: No - Gastrointestinal Hx Gastrointestinal Disorders: Yes Hx Gastroesophageal Reflux: Yes - Genitourinary/Gynecological Hx Genitourinary Disorders: No - Psychiatric Hx Anxiety: Yes Hx Emotional Abuse: No Hx Substance Use: No - Past Surgical History Past Surgical History: No Previous - Surgical History Hx Tonsillectomy: Yes - Anesthesia Hx Anesthesia Reactions: No Hx Malignant Hyperthermia: No - Suicidal Assessment Feels Threatened In Home Enviroment: No Family/Social History - Physician Review Nursing Documentation Reviewed: Yes Family/Social History: Other (Dad: COPD; Mother: "Heart disease") Smoking Status: Former Smoker Hx Alcohol Use: No Hx Substance Use: No Hx Substance Use Treatment: No Allergies/Home Meds Allergies/Adverse Reactions: Allergies Penicillins Allergy (Verified 02/03/17 13:25) ANAPHYLAXIS Home Medications: Home Meds Medication Instructions Recorded Confirmed Furosemide [Lasix] 40 mg PO DAILY 03/09/15 02/17/17 Metoprolol Succinate [Toprol Xl] 50 mg PO BID 03/09/15 02/17/17 Aspirin [Ecotrin] 81 mg PO DAILY 07/28/15 02/17/17 Gabapentin [Neurontin] 400 mg PO QID 07/28/15 02/17/17 Simvastatin [Zocor] 40 mg PO DAILY 07/28/15 02/17/17 Insulin Regular [HumuLIN R] 30 units SC TID 12/03/15 02/17/17 hydrALAZINE [Apresoline] 100 mg PO TID 12/03/15 02/17/17 Alprazolam [Xanax] 0.5 mg PO DAILY PRN 05/29/16 02/17/17 Liraglutide [Victoza 2-Long] 18 mg SC DAILY 05/29/16 02/17/17 Pantoprazole [Protonix EC Tab] 40 mg PO DAILY 05/29/16 02/17/17 Sertraline [Zoloft] 100 mg PO DAILY 05/29/16 02/17/17 Acetaminophen with Codeine 300 mg PO BID 02/03/17 02/17/17 [Acetamin-Codein 300-30 mg/12.5] Insulin Glargine,Hum.rec.anlog 90 unit SQ HS 02/03/17 02/17/17 [Basaglar Kwikpen U-100] [place]-3 Fatty Acids/Fish Oil [Fish 1 each PO QID 02/03/17 02/17/17 Oil 1,000 mg Softgel] Review of Systems - Physician Review All systems were reviewed & negative as marked: Yes - Review of Systems Constitutional: absent: Fevers, Other (Chills) Respiratory: absent: SOB Cardiovascular: absent: Chest Pain Gastrointestinal: Abdominal Pain, Nausea, Vomiting. absent: Diarrhea Genitourinary Male: absent: Dysuria, Frequency, Hematuria Musculoskeletal: absent: Back Pain, Neck Pain Neurological: absent: Headache, Dizziness Physical Exam Vital Signs Reviewed: Yes Vital Signs Temp Pulse Resp BP Pulse Ox 02/18/17 00:16 77 17 160/85 H 96 02/17/17 22:13 98.2 F 81 20 174/83 H 95 Temperature: Afebrile Blood Pressure: Hypertensive Pulse: Regular Respiratory Rate: Normal Appearance: Positive for: Well-Appearing, Non-Toxic, Comfortable, Other ( Morbidly obese) Pain Distress: None Mental Status: Positive for: Alert and Oriented X 3 - Systems Exam Head: Present: Atraumatic, Normocephalic Pupils: Present: PERRL Extroacular Muscles: Present: EOMI Conjunctiva: Present: Normal Mouth: Present: Moist Mucous Membranes Neck: Present: Normal Range of Motion Respiratory/Chest: Present: Clear to Auscultation, Good Air Exchange. No: Respiratory Distress, Accessory Muscle Use Cardiovascular: Present: Regular Rate and Rhythm, Normal S1, S2. No: Murmurs Abdomen: Present: Tenderness (Nonfocal Tenderness ), Normal Bowel Sounds. No: Distention, Peritoneal Signs Back: Present: Normal Inspection Upper Extremity: Present: Normal Inspection. No: Cyanosis, Edema Lower Extremity: Present: Normal Inspection. No: Edema Neurological: Present: GCS=15, CN II-XII Intact, Speech Normal Skin: Present: Warm, Dry, Normal Color. No: Rashes Psychiatric: Present: Alert, Oriented x 3, Normal Insight, Normal Concentration Medical Decision Making ED Course and Treatment: 02/17/17 22:15 Impression: 56 year old male presents complaining of abdominal paina ssociated with nausea and vomiting. Patient was recently discharged. Plan: -- EKG -- Labs -- IV Fluids -- Zofran Inj -- Urinalysis -- Reassess and disposition Prior Visits: Notes and results from previous visits were reviewed. Patient was last seen in the emergency department on 02/03/17 presents complaining of abdominal pain associated with vomiting for a few hours. Patient was admitted. Progress Notes: 02/17/17 23:20 EKG shows NSR at 80 BPM with non-specific ST/T changes. No interval changes from pervious. Interpreted by me. 02/18/17 00:14 Patient was sleeping with no acute distress. Patient symptoms have resolved. Offered patient CT scan of abdomen, but patient declines. Patient specifically asked to be discharged and for a prescription for Zofran. On re-evaluation, patient feels better and is in no acute distress. I have discussed the results and plan with the patient, who expresses understanding. Patient in agreement with plan to be discharged home. Patient is stable for discharge. Patient was instructed to follow up with physician or return if symptoms worsen or new concerning symptoms arise. - Lab Interpretations Lab Results: 02/17/17 22:30 02/17/17 22:30 Lab Results 02/17/17 23:05: Urine Color Yellow, Urine Appearance Clear, Urine pH 6.0, Ur Specific Powder[place] 1.020, Urine Protein 30 H, Urine Glucose (UA) Negative, Urine Ketones Negative, Urine Blood Negative, Urine Nitrate Negative, Urine Bilirubin Negative, Urine Urobilinogen 0.2, Ur Leukocyte Esterase Negative, Urine RBC 0 - 2, Urine WBC 0 - 2, Ur Epithelial Cells 1 - 3, Amorphous Sediment Few, Urine Bacteria Rare 02/17/17 22:30: Sodium 144, Potassium 3.2 L, Chloride 102, Carbon Dioxide 30, Anion Gap 15, BUN 20, Creatinine 0.9, Est GFR ( Amer) > 60, Est GFR (Non- Af Amer) > 60, Random Glucose 95, Calcium 10.2, Magnesium 1.3 L, Total Bilirubin 0.6, AST 37, ALT 64 H, Alkaline Phosphatase 78, Lactate Dehydrogenase 487, Total Creatine Kinase 57, Troponin I < 0.01, Total Protein 8.1, Albumin 4.5 , Globulin 3.6, Albumin/Globulin Ratio 1.3, Lipase 177 02/17/17 22:30: PT 11.2, INR 1.03, APTT 28.4 02/17/17 22:30: WBC 6.8, RBC 4.45, Hgb 12.8 L, Hct 39.2 L, MCV 88.1, MCH 28.8, MCHC 32.7, RDW 13.6, Plt Count 267, MPV 10.0, Gran % 63.3, Lymph % (Auto) 25.6, Alexander % (Auto) 8.4 H, Eos % (Auto) 2.1, Baso % (Auto) 0.6, Gran # 4.27, Lymph # 1.7, Alexander # 0.6, Eos # 0.1, Baso # 0.04 I have reviewed the lab results: Yes - EKG Interpretation Interpreted by ED Physician: Yes Type: 12 lead EKG - Medication Orders Current Medication Orders: Discontinued Medications Sodium Chloride (Sodium Chloride 0.9%) 500 mls @ 999 mls/hr IV .Q31M STA Stop: 02/17/17 22:53 Last Admin: 02/17/17 22:36 Dose: 999 mls/hr eMAR Start Stop Document 02/17/17 22:36 SF (Rec: 02/17/17 22:36 SF [id number]) Intravenous Solution Start Date 02/17/17 Start Time 22:36 End Date 02/17/17 End time 23:06 Total Infusion Time 30 Magnesium Oxide (Mag-Ox) 400 mg PO STAT STA Stop: 02/18/17 00:11 Ondansetron HCl (Zofran Inj) 4 mg IVP STAT STA Stop: 02/17/17 22:24 Last Admin: 02/17/17 22:36 Dose: 4 mg IVP Administration Document 02/17/17 22:36 SF (Rec: 02/17/17 22:36 SF [id number]) Charges for Administration # of IVP Administrations 1 Potassium Chloride (K-Dur 20 Meq Er Tab) 40 meq PO STAT STA Stop: 02/18/17 00:09 - Scribe Statement The provider has reviewed the documentation as recorded by the Ame Ferrera Provider Scribe Attestation: All medical record entries made by the Scribe were at my direction and personally dictated by me. I have reviewed the chart and agree that the record accurately reflects my personal performance of the history, physical exam, medical decision making, and the department course for this patient. I have also personally directed, reviewed, and agree with the discharge instructions and disposition. Disposition/Present on Arrival - Present on Arrival Any Indicators Present on Arrival: No History of DVT/PE: No History of Uncontrolled Diabetes: Yes Urinary Catheter: No History of Decub. Ulcer: No History Surgical Site Infection Following: None - Disposition Have Diagnosis and Disposition been Completed?: Yes Diagnosis: Vomiting, Abdominal pain Disposition: HOME/ ROUTINE Disposition Time: 00:11 Condition: STABLE Discharge Instructions (ExitCare): Acute Nausea and Vomiting (ED), Acute Abdominal Pain (ED) Additional Instructions: return to er with worsening symptoms or concerns. Prescriptions: Ondansetron ODT [Zofran ODT] 4 mg PO Q8 PRN #20 odt PRN Reason: Nausea/Vomiting Referrals: Isaac Dominguez MD [Staff Provider] - Follow up with primary [facility] [Outside] - Follow up with primary [facility] [Outside] - Follow up with primary Forms: [employer] (Swedish)
[2017-02-17 23:41] LABS: BASO # 0.04 K/mm3 (0.0-2.0); BASO % 0.6 % (0.0-3.0); EOS # 0.1 (0.0-0.7); EOS % 2.1 % (1.5-5.0); GRAN # 4.27 (1.4-6.5); GRAN % 63.3 % (50.0-68.0); HEMATOCRIT 39.2 % (42.0-52.0); LYMPH # 1.7 (1.2-3.4); LYMPH % 25.6 % (22.0-35.0); MEAN CELL VOLUME 88.1 fl (80.0-105.0); MEAN CORPUSCULAR HEMOGLOBIN 28.8 pg (25.0-35.0); MEAN CORPUSCULAR HGB CONC 32.7 g/dl (31.0-37.0); MONO # 0.6 (0.1-0.6); MONO % 8.4 % (1.0-6.0); RED CELL DISTRIBUTION WIDTH 13.6 % (11.5-14.5); WHITE BLOOD COUNT 6.8 10^3/ul (4.5-11.0)
[2017-02-17 23:46] LABS: URINE BILIRUBIN NEGATIVE (NEGATIVE); URINE BLOOD NEGATIVE (NEGATIVE); URINE GLUCOSE (UA) NEGATIVE (NEGATIVE); URINE KETONE NEGATIVE (NEGATIVE); URINE LEUKOCYTE ESTERASE NEGATIVE Leu/uL (NEGATIVE); URINE PROTEIN 30 mg/dL (<30 mg/dL); URINE UROBILINOGEN 0.2 E.U./dL (<1 E.U./dL)
[2017-02-17 23:57] LABS: URINE APPEARANCE CLEAR (CLEAR); URINE COLOR YELLOW (YELLOW)
[2017-02-17 23:59] LABS: INR 1.03 (0.93-1.08); PARTIAL THROMBOPLASTIN TIME 28.4 Seconds (25.1-36.5)
[2017-02-18 00:02] LABS: TROPONIN I < 0.01 ng/mL
[2017-02-18 00:07] LABS: ALB/GLOB RATIO 1.3 (1.1-1.8); ALKALINE PHOSPHATASE 78 U/L (38-126); ALT/SGPT 64 U/L (7-56); AST/SGOT 37 U/L (17-59); BILIRUBIN,TOTAL 0.6 mg/dL (0.2-1.3); BLOOD UREA NITROGEN 20 mg/dL (7-21); CALCIUM 10.2 mg/dL (8.4-10.5); CARBON DIOXIDE 30 mmol/L (21-33); CHLORIDE 102 mmol/L (98-107); GFR AFRICAN-AMERICAN > 60; GLUCOSE,RANDOM 95 mg/dL (70-110); LIPASE 177 U/L (23-300); MAGNESIUM 1.3 mg/dL (1.7-2.2); POTASSIUM 3.2 mmol/L (3.6-5.0); SODIUM 144 mmol/L (132-148); TOTAL PROTEIN 8.1 g/dL (5.8-8.3)
[2017-02-18 00:08] LABS: URINE RBC 0 - 2 /hpf (0-2)
[2017-02-18] MEDS ORDERED: Potassium Chloride 20 mEq ER Tab PO STA (00:08)
[2017-02-18] MEDS ORDERED: Magnesium Sulfate 2 GM in Sodium Chloride 0.9% 100 ML IVPB ONE (00:08)
[2017-02-18 00:09] LABS: URINE AMORPHOUS SEDIMENT FEW; URINE BACTERIA RARE (NEG); URINE WBC 0 - 2 /hpf (0-6)
[2017-02-18] MEDS ORDERED: Magnesium Oxide 400 mg Tab UD PO STA (00:10)
[2017-02-18 00:18] VITALS: BP 160/85; PULSE 77; RESP 17; O2SAT 96
--- NOTE | 2017-02-18 17:25 | CARD ---
APPROVED REPORT EKG Measurement Heart [id number] <Conclusion> Normal sinus rhythm Minimal voltage criteria for LVH, may be normal variant Nonspecific T wave abnormality Abnormal ECG
== END 2017-02-18 00:18 | disposition home or self-care (01) ==
LOC: ED 22:06
DX: R10.9 Unspecified abdominal pain (principal); R11.10 Vomiting, unspecified; E11.9 Type 2 diabetes mellitus without complications; E78.00 Pure hypercholesterolemia, unspecified; I10 Essential (primary) hypertension; Z87.891 Personal history of nicotine dependence
CPT/HCPCS: 80053; 81001; 82550; 83615; 83690; 83735; 84484; 85025; 85610; 85730; 93005; 96374; 99285; J2405; J7040

== ENCOUNTER 2017-04-13 05:56 | Observation (INO) | payer MEDICAID ==
--- NOTE | 2017-04-13 07:34 | ED PDOC ---
Arrival/HPI - General Chief Complaint: Lower Extremity Problem/Injury Time Seen by Provider: 04/13/17 07:32 Historian: Patient - History of Present Illness Narrative History of Present Illness (Text): 04/13/17 07:32 Og Vick is a 56 year old male, whose past medical history includes hypertension, diabetes, anxiety, depression, hemorrhoids, sigmoid colon polyp, and IBS, presents to the emergency department complaining of body edema since yesterday. Patient notes associated symptoms of shortness of breath upon exertion and dry mouth over the past week. Patient states waking up and having trouble moving and getting dressed. Patient denies any fever, chills, chest pain , abdominal pain, nausea, vomiting, diarrhea, back pain, neck pain, headache, dizziness or any other complaints. Time/Duration: Other (last night) Symptom Onset: Gradual Symptom Course: Worsening Activities at Onset: Light Context: Home Past Medical History - Provider Review Nursing Documentation Reviewed: Yes - Infectious Disease Hx of Infectious Diseases: None - Tetanus Immunization Tetanus Immunization: Unknown - Cardiac Hx Hypertension: Yes - Pulmonary Hx Respiratory Disorders: Yes Hx Chronic Obstructive Pulmonary Disease (COPD): Yes - Neurological Hx Neurological Disorder: No Hx Paralysis: No - HEENT Hx HEENT Disorder: No Hx Glaucoma: Yes (Left > Right) - Renal Hx Renal Disorder: No - Endocrine/Metabolic Hx Diabetes Mellitus Type 2: Yes - Hematological/Oncological Hx Blood Disorders: No Hx Blood Transfusions: No - Integumentary Hx Dermatological Disorder: Yes Other/Comment: BOTH LEGS WITH CHRONIC VASCULAR, AND DIABETIC SWELLING. NO OPEN ULCERATIONS AT PRESENT. LEFT FACIAL FADING ECCYMOSIS ABOVE LIP AND CHEEK - Musculoskeletal/Rheumatological Hx Musculoskeletal Disorders: No - Gastrointestinal Hx Gastrointestinal Disorders: Yes Hx Gastroesophageal Reflux: Yes - Genitourinary/Gynecological Hx Genitourinary Disorders: No - Psychiatric Hx Anxiety: Yes Hx Emotional Abuse: No Hx Substance Use: No - Past Surgical History Past Surgical History: No Previous - Surgical History Hx Tonsillectomy: Yes - Anesthesia Hx Anesthesia Reactions: No Hx Malignant Hyperthermia: No - Suicidal Assessment Feels Threatened In Home Enviroment: No Family/Social History - Physician Review Nursing Documentation Reviewed: Yes Smoking Status: Former Smoker Hx Alcohol Use: No Hx Substance Use: No Hx Substance Use Treatment: No Allergies/Home Meds Allergies/Adverse Reactions: Allergies Penicillins Allergy (Verified 02/03/17 13:25) ANAPHYLAXIS Home Medications: Home Meds Medication Instructions Recorded Confirmed Alprazolam [Xanax] 0.5 mg PO DAILY PRN 04/13/17 04/13/17 Aspirin [Aspirin Chewable] 81 mg PO DAILY 04/13/17 04/13/17 Bupropion HCl [Wellbutrin Sr] 150 mg PO DAILY 04/13/17 04/13/17 Cyclobenzaprine [Cyclobenzaprine 10 mg PO TID PRN 04/13/17 04/13/17 HCl] Diclofenac Sodium [Voltaren] 100 gm TP QID 04/13/17 04/13/17 Furosemide [Lasix] 40 mg PO BID 04/13/17 04/13/17 Gabapentin [Neurontin] 600 mg PO QID 04/13/17 04/13/17 Hydralazine HCl 100 mg PO TID 04/13/17 04/13/17 Metoprolol Succinate [Toprol Xl] 50 mg PO BID 04/13/17 04/13/17 Naproxen [Naprosyn] 500 mg PO BID PRN 04/13/17 04/13/17 Pantoprazole Sodium [Protonix] 40 mg PO DAILY 04/13/17 04/13/17 Sertraline [Zoloft] 100 mg PO DAILY 04/13/17 04/13/17 Simvastatin [Zocor] 40 mg PO HS 04/13/17 04/13/17 Valsartan [Diovan] 25 mg PO DAILY 04/13/17 04/13/17 Review of Systems - Physician Review All systems were reviewed & negative as marked: Yes - Review of Systems Constitutional: Normal Eyes: Normal ENT: Other (+dry mouth) Respiratory: SOB. absent: Cough Cardiovascular: absent: Chest Pain Gastrointestinal: absent: Abdominal Pain, Diarrhea, Nausea, Vomiting Genitourinary Male: Normal. absent: Dysuria, Frequency, Hematuria, Urinary Output Changes Musculoskeletal: Normal. absent: Back Pain, Neck Pain Skin: Normal Neurological: Normal Endocrine: Normal Hemo/Lymphatic: Normal Psychiatric: Normal Physical Exam Vital Signs Temp Pulse Resp BP Pulse Ox 04/13/17 09:04 98.3 F 81 17 121/56 L 99 04/13/17 06:19 97.8 F 85 20 130/75 97 Medical Decision Making ED Course and Treatment: 04/13/17 07:45 Impression: 56 year old male presents to the emergency department with body edema, SOB upon exertion, and dry mouth. Differential Diagnosis included but are not limited to: CHF vs. Renal Failure vs. Medication non compliance Plan: -- EKG -- Chest X-ray -- Labs, Cardiac Enzymes -- Accucheck -- Urinalysis -- Reassess and disposition Prior Visits: Notes and results from previous visits were reviewed. Patient was last seen in the emergency department on 02/17/17 for abdominal pain. Patient was discharged home. Progress Notes: 04/13/17 11:19 Chest X-ray reviewed, shows: FINDINGS: LUNGS: Minor right basilar atelectasis cysts PLEURA: No significant pleural effusion identified, no pneumothorax apparent. CARDIOVASCULAR: Heart size is upper limits of normal/ borderline enlarged. OSSEOUS STRUCTURES: No significant abnormalities. VISUALIZED UPPER ABDOMEN: Normal. OTHER FINDINGS: None. IMPRESSION: Minor right basilar atelectasis. - Lab Interpretations Lab Results: 04/13/17 08:23 04/13/17 09:25 Lab Results 04/13/17 09:25: Sodium 143, Potassium 4.1, Chloride 102, Carbon Dioxide 29, Anion Gap 16, BUN 19, Creatinine 0.9, Est GFR ( Amer) > 60, Est GFR (Non- Af Amer) > 60, Random Glucose 232 H, Calcium 9.1, Total Bilirubin 0.4, AST 50, ALT 77 H, Alkaline Phosphatase 91, Lactate Dehydrogenase 660, Total Creatine Kinase 97, Troponin I < 0.01, NT-Pro-B Natriuret Pep 257, Total Protein 6.5, Albumin 3.8, Globulin 2.8, Albumin/Globulin Ratio 1.4 04/13/17 08:23: PT 10.5, INR 0.91 L, APTT 25.7 04/13/17 08:23: WBC 7.1, RBC 4.12, Hgb 11.8 L, Hct 36.9 L, MCV 89.6, MCH 28.6, MCHC 32.0, RDW 14.3, Plt Count 230, MPV 10.5, Gran % 63.1, Lymph % (Auto) 23.2, Hawkins % (Auto) 6.8 H, Eos % (Auto) 6.2 H, Baso % (Auto) 0.7, Gran # 4.49, Lymph # (Auto) 1.7, Hawkins # (Auto) 0.5, Eos # (Auto) 0.4, Baso # (Auto) 0.05 04/13/17 08:21: POC Glucose (mg/dL) 248 H - RAD Interpretation Radiology Orders: 04/13/17 07:38 CHEST PORTABLE [RAD] Stat - Scribe Statement The provider has reviewed the documentation as recorded by the Scribe Katheryn Flores All medical record entries made by the Scribe were at my direction and personally dictated by me. I have reviewed the chart and agree that the record accurately reflects my personal performance of the history, physical exam, medical decision making, and the department course for this patient. I have also personally directed, reviewed, and agree with the discharge instructions and disposition. Disposition/Present on Arrival - Present on Arrival History of DVT/PE: No History of Uncontrolled Diabetes: Yes Urinary Catheter: No History of Decub. Ulcer: No History Surgical Site Infection Following: None - Disposition Referrals: Tutameehussain Hernandez, [Primary Care Provider] - Follow up with primary Forms: [employer] (Kosovan)
[2017-04-13 09:00] LABS: BASO # 0.05 K/mm3 (0.0-2.0); BASO % 0.7 % (0.0-3.0); EOS # 0.4 (0.0-0.7); EOS % 6.2 % (1.5-5.0); GRAN # 4.49 (1.4-6.5); GRAN % 63.1 % (50.0-68.0); HEMOGLOBIN 11.8 g/dL (14.0-18.0); LYMPH # 1.7 (1.2-3.4); LYMPH % 23.2 % (22.0-35.0); MEAN CELL VOLUME 89.6 fl (80.0-105.0); MEAN CORPUSCULAR HEMOGLOBIN 28.6 pg (25.0-35.0); MEAN PLATELET VOLUME 10.5 fl (7.0-11.0); MONO # 0.5 (0.1-0.6); MONO % 6.8 % (1.0-6.0); RBC 4.12 10^6/uL (3.5-6.1); RED CELL DISTRIBUTION WIDTH 14.3 % (11.5-14.5); WHITE BLOOD COUNT 7.1 10^3/ul (4.5-11.0)
[2017-04-13 09:25] LABS: INR 0.91 (0.93-1.08); PARTIAL THROMBOPLASTIN TIME 25.7 Seconds (25.1-36.5); PROTHROMBIN TIME 10.5 SECONDS (9.4-12.5)
[2017-04-13 10:27] LABS: ALB/GLOB RATIO 1.4 (1.1-1.8); ALBUMIN 3.8 g/dL (3.0-4.8); ALT/SGPT 77 U/L (7-56); AST/SGOT 50 U/L (17-59); BLOOD UREA NITROGEN 19 mg/dL (7-21); CALCIUM 9.1 mg/dL (8.4-10.5); GFR AFRICAN-AMERICAN > 60; GFR NON-AFRICAN AMERICAN > 60
[2017-04-13 10:38] LABS: B-TYPE NATRIURETIC PEPTIDE 257 pg/mL (0-450); TROPONIN I < 0.01 ng/mL
--- NOTE | 2017-04-13 11:07 | RAD ---
HISTORY: SOB COMPARISON: Comparison chest 02/03/2018 FINDINGS: LUNGS: Minor right basilar atelectasis cysts PLEURA: No significant pleural effusion identified, no pneumothorax apparent. CARDIOVASCULAR: Heart size is upper limits of normal/ borderline enlarged. OSSEOUS STRUCTURES: No significant abnormalities. VISUALIZED UPPER ABDOMEN: Normal. OTHER FINDINGS: None. IMPRESSION: Minor right basilar atelectasis.
[2017-04-13 11:16] LABS: URINE BILIRUBIN NEGATIVE (NEGATIVE); URINE BLOOD NEGATIVE (NEGATIVE); URINE GLUCOSE (UA) NEGATIVE (NEGATIVE); URINE LEUKOCYTE ESTERASE TRACE Leu/uL (NEGATIVE); URINE NITRATE NEGATIVE (NEGATIVE); URINE PROTEIN NEGATIVE mg/dL (<30 mg/dL); URINE UROBILINOGEN 0.2 E.U./dL (<1 E.U./dL)
[2017-04-13 11:27] LABS: URINE APPEARANCE SL CLOUDY (CLEAR); URINE COLOR YELLOW (YELLOW)
[2017-04-13 12:13] LABS: URINE AMORPHOUS SEDIMENT SMALL; URINE BACTERIA MANY (NEG); URINE RBC NEGATIVE /hpf (0-2); URINE WBC 0 - 2 /hpf (0-6)
--- NOTE | 2017-04-13 14:08 | CP.PCM.HP ---
<IrmameganpaulaGerardo rojas - Last Filed: 04/13/17 14:02> History of Present Illness - History of Present Illness History of Present Illness: 56 year old male with past medical history of hypertension, COPD, diabetes, anxiety, depression, and IBS presents to the hospital for 1 week of shortness of breath. Patient noticed his legs becoming more swollen last week and was told by his PMD to take Lasix for the next week. Patient states the medications didn't help and his shortness of breath became worse and he noticed his body becoming more swollen, in particularly in his legs. This morning, his shortness of breath became worse and he came to the hospital for evaluation. Patient admits to being compliant with all his medications. He admits to having orthopnea and dyspnea on exertion. He has never been told he had the diagnosis of CHF in the past. He states he has a low salt diet. Denies chest pain, nausea , vomiting, diarrhea, fever, dysuria, changes in vision, chills. Past medical history: Hypertension, COPD, diabetes, anxiety, depression, chronic back pain and IBS Surgical history: Tonsillectomy Family history: CHF, DVT Social history: Former smoker, quit 14 years ago. 4 ppd x 24 years. Denies alcohol or illicit drug use. Disabled. 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: Huber Present on Admission - Present on Admission Any Indicators Present on Admission: No Review of Systems - Review of Systems Review of Systems: 12 point ROS as per HPI, otherwise negative Past Patient History - Infectious Disease Hx of Infectious Diseases: None - Tetanus Immunizations Tetanus Immunization: Unknown - Past Medical History & Family History Past Medical History?: Yes - Past Social History Smoking Status: Former Smoker - CARDIAC Hx Hypertension: Yes - PULMONARY Hx Respiratory Disorders: Yes Hx Chronic Obstructive Pulmonary Disease (COPD): Yes - NEUROLOGICAL Hx Neurological Disorder: No Hx Paralysis: No - HEENT Hx HEENT Problems: No Hx Glaucoma: Yes (Left > Right) - RENAL Hx Chronic Kidney Disease: No - ENDOCRINE/METABOLIC Hx Diabetes Mellitus Type 2: Yes - HEMATOLOGICAL/ONCOLOGICAL Hx Blood Disorders: No Hx Blood Transfusions: No - INTEGUMENTARY Hx Dermatological Problems: Yes Other/Comment: BOTH LEGS WITH CHRONIC VASCULAR, AND DIABETIC SWELLING. NO OPEN ULCERATIONS AT PRESENT. LEFT FACIAL FADING ECCYMOSIS ABOVE LIP AND CHEEK - MUSCULOSKELETAL/RHEUMATOLOGICAL Hx Musculoskeletal Disorders: No - GASTROINTESTINAL Hx Gastrointestinal Disorders: Yes Hx Gastroesophageal Reflux: Yes - GENITOURINARY/GYNECOLOGICAL Hx Genitourinary Disorders: No - PSYCHIATRIC Hx Anxiety: Yes Hx Emotional Abuse: No Hx Substance Use: No - SURGICAL HISTORY Hx Tonsillectomy: Yes - ANESTHESIA Hx Anesthesia Reactions: No Hx Malignant Hyperthermia: No Meds Allergies/Adverse Reactions: Allergies Allergy/AdvReac Type Severity Reaction Status Date / Time Penicillins Allergy ANAPHYLAXIS Verified 02/03/17 13:25 Physical Exam - Constitutional Appears: Non-toxic, No Acute Distress - Head Exam Head Exam: ATRAUMATIC, NORMAL INSPECTION, NORMOCEPHALIC - Eye Exam Eye Exam: EOMI, Normal appearance - ENT Exam ENT Exam: Mucous Membranes Moist, Normal Exam - Neck Exam Neck exam: Positive for: Normal Inspection. Negative for: Lymphadenopathy - Respiratory Exam Respiratory Exam: Rales, NORMAL BREATHING PATTERN. absent: Rhonchi, Wheezes - Cardiovascular Exam Cardiovascular Exam: RRR, +S1, +S2 - GI/Abdominal Exam GI & Abdominal Exam: Distended, Normal Bowel Sounds, Soft. absent: Tenderness - Extremities Exam Extremities exam: Positive for: pedal edema (+1 pitting edema b/l ). Negative for: calf tenderness - Neurological Exam Neurological exam: Alert, Altered, Oriented x3 - Psychiatric Exam Psychiatric exam: Normal Affect, Normal Mood - Skin Skin Exam: Intact, Normal Color, Warm Results - Vital Signs Recent Vital Signs: Last Vital Signs Temp 98.3 F 04/13/17 09:04 Pulse 79 04/13/17 11:34 Resp 18 04/13/17 11:34 BP 120/88 04/13/17 12:17 Pulse Ox 99 04/13/17 11:34 - Labs Result Diagrams: 04/13/17 08:23 04/13/17 09:25 Assessment & Plan - Assessment and Plan (Free Text) Plan: 56 year old male with past medical history of hypertension, COPD, diabetes, anxiety, depression, back pain, and IBS presents with likely CHF exacerbation. Patient will have echocardiogram and lower extremity ultrasounds ordered. Patient will be seen be cardiology. We will resume home medications for the patient and add Lasix. 1. CHF exacerbation Lasix 40 mg IV q12h Resume home Valsartan, Toprol, Simvastatin, ASA Strict I's and O's Daily weights Echocardiogram ordered B/l lower ext ultrasound ordered Cardiology consulted, Dr. Ramírez 2. Hypertension Resume home Hydralazine 3. Diabetes Insulin sliding scale HgA1c 4. Anxiety/Depression Resume home Wellbutrin, Xanax, Zoloft 5. Chronic back pain Resume home Gabapentin, Cyclobenzaprine, Voltaren, Naproxen 6. Prophylaxis Protonix Heparin Bhagwandin, PGY-2 <Jean Dacosta - Last Filed: 04/13/17 18:01> Results - Vital Signs Recent Vital Signs: Last Vital Signs Temp 98.3 F 04/13/17 09:04 Pulse 75 04/13/17 16:23 Resp 18 04/13/17 16:23 BP 123/64 04/13/17 16:23 Pulse Ox 99 04/13/17 16:23 - Labs Result Diagrams: 04/13/17 08:23 04/13/17 09:25 Attending/Attestation - Attestation I have personally seen and examined this patient.: Yes I have fully participated in the care of the patient.: Yes I have reviewed all pertinent clinical information: Yes Notes (Text): I have seen and examined the patient at bedside. Agree with the above note with the following additions/ exceptions: Briefly this is 56 year old male with history of HTN, COPD, former smoker, IDDM, anxiety, depression, chronic back pain and IBS who came to the hospital for evaluation of dyspnea on exertion, orthopnea, bilateral lower extremity swelling and abdominal distension and found to have fluid overload due to CHF exacerbation. CXR prelim suggests pulmonary edema. BNP is only 257. At home, patient has been on lasix, metoprolol , valsartan, aspirin, hydralazine and statins. Will restart all medications and start IV lasix. Will order LE ultrasound. Patient had stress test in October in Dr Ngo's office. Will try to obtain echo and stress test report tomorrow. Office Number [phone]. Upon discharge patient will follow up with Dr Diop and Dr Ngo. Dr Jean Dacosta
[2017-04-13] MEDS ORDERED: NAPROXEN 500 MG PO PRN (14:18)
[2017-04-13 14:37] LABS: HDL CHOLESTEROL 39 mg/dL (29-60)
[2017-04-13 14:48] LABS: LDL CHOLESTEROL 107 mg/dL (0-129)
[2017-04-13 15:01] VITALS: BMI 45.2
[2017-04-13] MEDS ORDERED: Non Formulary Medication (Hydralazine Hcl [Hydralazine Hcl] 100 MG) PO SCH (18:00)
[2017-04-13] MEDS ORDERED: DICLOFENAC SODIUM 100 GM TP SCH (18:00)
[2017-04-13] MEDS: Metoprolol Succinate 50 mg XL Tab PO SCH (18:09)
[2017-04-13] MEDS: Insulin Reg-HIGH-Coverage SC SCH ×2 (18:17→21:20)
[2017-04-13] MEDS ORDERED: Insulin Regular 1 UNITS/0.01 ML ML ONE (18:20)
[2017-04-13] MEDS: buPROPion SR 150 MG TABLET PO SCH (18:22)
[2017-04-13] MEDS: DICLOFENAC SODIUM 100 GM TP SCH ×2 (18:23→22:00)
[2017-04-13 18:37] VITALS: RESP 20
--- NOTE | 2017-04-13 19:22 | US ---
HISTORY: Arm pain and swelling. Evaluate for deep venous thrombosis. PHYSICIAN(S): Seth Sin MD. FINDINGS: The visualized internal jugular veins are sonographically normal and compressible. No evidence of obstruction or thrombus this is seen. The visualized segments of the subclavian veins are patent with normal waveforms. No sonographic evidence of obstruction or thrombosis is seen. The visualized deep venous systems of both upper extremities proximally are sonographically normal and compressible. IMPRESSION: 1. No sonographic evidence for deep venous thrombosis in the visualized segments of both upper strategies.
[2017-04-14 00:39] VITALS: TEMP 97.6; O2SAT 95
--- NOTE | 2017-04-14 03:49 | CON ---
DATE: 04/13/2017 LOCATION: Patient presently in emergency room 600, bed 4. REASON FOR CONSULTATION: Shortness of breath, swelling of legs. HISTORY OF PRESENT ILLNESS: A 56-year-old male, known case of COPD, diabetes mellitus, hypertension, high cholesterol, glaucoma, anxiety, depression, irritable bowel syndrome, obesity, admitted with the history that since last one week, his legs having gradual swelling and he was getting shortness of breath, which has gradually got worse and he was having shortness of breath and that is why he came to the emergency room. Denies chest pain or palpitation. The patient for few years had been sleeping upside with the head side. PAST MEDICAL HISTORY: Positive for COPD, diabetes mellitus, hypertension, anxiety, depression, irritable bowel syndrome, obesity, glaucoma, high cholesterol, hypertension. ALLERGIES: PATIENT IS ALLERGIC TO PENICILLIN, AND PROZAC. PERSONAL HISTORY: Used to smoke 4 packs a day since age 15 and stopped at age 42. Denies drinking. FAMILY HISTORY: Mother had CHF. Father had CHF and COPD. LIST OF MEDICATIONS AT HOME: Aspirin 81 mg daily, Diovan 25 daily, Toprol-XL 50 mg b.i.d., Zocor 40 daily, Lasix 40 b.i.d., Wellbutrin 150 mg daily, Neurontin 600 mg p.o. q.i.d., hydralazine 100 mg t.i.d., Zoloft 100 mg daily, Xanax 0.5 mg daily p.r.n., Naprosyn 500 mg p.o. b.i.d. p.r.n., Protonix 40 mg daily. PHYSICAL EXAMINATION: VITAL SIGNS: Blood pressure 120/88, respirations 18, pulse 79, temperature 99.3. HEENT: Head is normocephalic. Eyes: Pupils normal. Conjunctivae normal. Nose and throat nose. NECK: JVP low. Carotids equal. THORAX: AP diameter normal. ABDOMEN: Protuberant. No organomegaly. EXTREMITIES: Patient has bilateral edema of the legs, 3 to 4+ bilateral. LABORATORY DATA: WBC 7.1, hemoglobin 11.8, hematocrit 36.9, platelets 230. Sodium 143, potassium 4.1, BUN 19, creatinine 0.9, glucose 248, random glucose 232. Triglycerides 388, cholesterol 198, LDL 107, HDL 39. Chest x-ray looks clear, minor right basilar atelectasis. EKG showed regular sinus rhythm, nonspecific ST-T changes. DIAGNOSES: Shortness of breath, swelling of legs, chronic obstructive pulmonary disease, chronic venous stasis, rule out right heart failure, diabetes, hypertension, high cholesterol, high triglyceride, glaucoma, anxiety, depression, irritable bowel syndrome, obesity, rule out sleep apnea. PLAN: Patient sees outside salesman, Dr. Ngo, who is located in [place]. His phone number is [phone]. According to patient, he had a stress test in 12/2016, it was negative, and most likely he had echo at the same time also. We will try to get those reports from his outside salesman. In the meantime, patient has been started on hydralazine 100 mg t.i.d., aspirin 81 daily, losartan 25 daily, furosemide 40 IV q. 12 hours, Lipitor 20 mg daily, gabapentin 600 mg q.i.d., Protonix 40 daily, metoprolol succinate 50 mg b.i.d., Wellbutrin 150 mg p.o. daily, Zoloft 100 mg daily. We will monitor intake/output. We will follow with you and advise the patient to lose weight. Landy Ramírez MD
[2017-04-14] MEDS ORDERED: Pantoprazole 40 mg EC Tab PO SCH (06:00)
[2017-04-14 06:47] LABS: HEMOGLOBIN 11.6 g/dL (14.0-18.0); MEAN CELL VOLUME 90.2 fl (80.0-105.0); MEAN CORPUSCULAR HEMOGLOBIN 28.5 pg (25.0-35.0); MEAN CORPUSCULAR HGB CONC 31.6 g/dl (31.0-37.0); MEAN PLATELET VOLUME 10.2 fl (7.0-11.0); RBC 4.07 10^6/uL (3.5-6.1); WHITE BLOOD COUNT 5.9 10^3/ul (4.5-11.0)
[2017-04-14 07:19] LABS: ALB/GLOB RATIO 1.1 (1.1-1.8); ALBUMIN 3.6 g/dL (3.0-4.8); ALT/SGPT 68 U/L (7-56); AST/SGOT 47 U/L (17-59); BLOOD UREA NITROGEN 18 mg/dL (7-21); GFR AFRICAN-AMERICAN > 60; GFR NON-AFRICAN AMERICAN > 60; MAGNESIUM 1.5 mg/dL (1.7-2.2)
[2017-04-14] MEDS ORDERED: Potassium Chloride 20 mEq ER Tab PO STA (08:37)
[2017-04-14] MEDS ORDERED: Magnesium Sulfate 2 GM in Sodium Chloride 0.9% 100 ML IVPB ONE (08:37)
[2017-04-14] MEDS: Insulin Reg-HIGH-Coverage SC SCH ×2 (09:01→11:42)
[2017-04-14] MEDS ORDERED: metOLazone 5 MG TAB PO STA (09:21)
--- NOTE | 2017-04-14 09:41 | CARD ---
APPROVED REPORT EKG Measurement Heart [id number] MD [id number] <Conclusion> Normal sinus rhythm Minimal voltage criteria for LVH, may be normal variant Q in 3 NSSTW changes Mildly prolonged QTc
[2017-04-14] MEDS: Metoprolol Succinate 50 mg XL Tab PO SCH (10:23)
[2017-04-14] MEDS: buPROPion SR 150 MG TABLET PO SCH (10:24)
[2017-04-14] MEDS: DICLOFENAC SODIUM 100 GM TP SCH (11:39)
--- NOTE | 2017-04-14 11:56 | CP.PCM.DIS ---
<Macario Orellana S - Last Filed: 04/14/17 15:52> Provider - Provider Date of Admission: 04/13/17 13:08 Attending physician: Gallo Harris MD Primary care physician: Dr. Diop Consults: Cardiology: Dr. Ramírez Time Spent in preparation of Discharge (in minutes): 45 Diagnosis - Discharge Diagnosis (1) Diastolic CHF Status: Acute Priority: High (2) HTN (hypertension) Status: Chronic Priority: Medium (3) Diabetes mellitus Status: Chronic Priority: Medium (4) Anxiety Status: Chronic Priority: Low (5) Depression Status: Chronic Priority: Low (6) Chronic back pain Status: Chronic Priority: Low Hospital Course - Lab Results Lab Results: Most Recent Lab Values WBC 5.9 10^3/ul (4.5-11.0) 04/14/17 05:40 RBC 4.07 10^6/uL (3.5-6.1) 04/14/17 05:40 Hgb 11.6 g/dL (14.0-18.0) L 04/14/17 05:40 Hct 36.7 % (42.0-52.0) L 04/14/17 05:40 MCV 90.2 fl (80.0-105.0) 04/14/17 05:40 MCH 28.5 pg (25.0-35.0) 04/14/17 05:40 MCHC 31.6 g/dl (31.0-37.0) 04/14/17 05:40 RDW 14.0 % (11.5-14.5) 04/14/17 05:40 Plt Count 223 10^3/uL (120.0-450.0) 04/14/17 05:40 MPV 10.2 fl (7.0-11.0) 04/14/17 05:40 Gran % 63.1 % (50.0-68.0) 04/13/17 08:23 Lymph % (Auto) 23.2 % (22.0-35.0) 04/13/17 08:23 [place] % (Auto) 6.8 % (1.0-6.0) H 04/13/17 08:23 Eos % (Auto) 6.2 % (1.5-5.0) H 04/13/17 08:23 Baso % (Auto) 0.7 % (0.0-3.0) 04/13/17 08:23 Gran # 4.49 (1.4-6.5) 04/13/17 08:23 Lymph # (Auto) 1.7 (1.2-3.4) 04/13/17 08:23 [place] # (Auto) 0.5 (0.1-0.6) 04/13/17 08:23 Eos # (Auto) 0.4 (0.0-0.7) 04/13/17 08:23 Baso # (Auto) 0.05 K/mm3 (0.0-2.0) 04/13/17 08:23 PT 10.5 SECONDS (9.4-12.5) 04/13/17 08: INR 0.91 (0.93-1.08) L 04/13/17 08:23 APTT 25.7 Seconds (25.1-36.5) 04/13/17 08:23 Sodium 143 mmol/L (132-148) 04/14/17 05:40 Potassium 3.5 mmol/L (3.6-5.0) L 04/14/17 05:40 Chloride 100 mmol/L (98-107) 04/14/17 05:40 Carbon Dioxide 32 mmol/L (21-33) 04/14/17 05:40 Anion Gap 14 (10-20) 04/14/17 05:40 BUN 18 mg/dL (7-21) 04/14/17 05:40 Creatinine 0.8 mg/dl (0.8-1.5) 04/14/17 05:40 Est GFR ( Amer) > 60 04/14/17 05:40 Est GFR (Non-Af Amer) > 60 04/14/17 05:40 POC Glucose (mg/dL) 350 mg/dL (65-110) H 04/14/17 11:03 Random Glucose 298 mg/dL (70-110) H 04/14/17 05:40 Hemoglobin A1c 8.6 % (4.2-6.5) H 04/13/17 09:30 Calcium 9.0 mg/dL (8.4-10.5) 04/14/17 05:40 Phosphorus 2.7 mg/dL (2.5-4.5) 04/14/17 05:40 Magnesium 1.5 mg/dL (1.7-2.2) L 04/14/17 05:40 Total Bilirubin 0.6 mg/dL (0.2-1.3) 04/14/17 05:40 AST 47 U/L (17-59) 04/14/17 05:40 ALT 68 U/L (7-56) H 04/14/17 05:40 Alkaline Phosphatase 85 U/L (38-126) 04/14/17 05:40 Lactate Dehydrogenase 660 U/L (333-699) 04/13/17 09:25 Total Creatine Kinase 97 U/L (35-230) 04/13/17 09:25 Troponin I < 0.01 ng/mL 04/13/17 09:25 NT-Pro-B Natriuret Pep 257 pg/mL (0-450) 04/13/17 09:25 Total Protein 6.8 g/dL (5.8-8.3) 04/14/17 05:40 Albumin 3.6 g/dL (3.0-4.8) 04/14/17 05:40 Globulin 3.2 gm/dL 04/14/17 05:40 Albumin/Globulin Ratio 1.1 (1.1-1.8) 04/14/17 05:40 Triglycerides 388 mg/dL (35-160) H 04/13/17 09:30 Cholesterol 198 mg/dL (130-200) 04/13/17 09:30 LDL Cholesterol Direct 107 mg/dL (0-129) 04/13/17 09:30 HDL Cholesterol 39 mg/dL (29-60) 04/13/17 09:30 Urine Color Yellow (YELLOW) 04/13/17 10:40 Urine Appearance Sl cloudy (CLEAR) 04/13/17 10:40 Urine pH 6.0 (4.7-8.0) 04/13/17 10:40 Ur Specific [place] 1.020 (1.005-1.035) 04/13/17 10:40 Urine Protein Negative mg/dL (<30 mg/dL) 04/13/17 10:40 Urine Glucose (UA) Negative mg/dL (NEGATIVE) 04/13/17 10:40 Urine Ketones Negative mg/dL (NEGATIVE) 04/13/17 10:40 Urine Blood Negative (NEGATIVE) 04/13/17 10:40 Urine Nitrate Negative (NEGATIVE) 04/13/17 10:40 Urine Bilirubin Negative (NEGATIVE) 04/13/17 10:40 Urine Urobilinogen 0.2 E.U./dL (<1 E.U./dL) 04/13/17 10:40 Ur Leukocyte Esterase Trace Marie/uL (NEGATIVE) H 04/13/17 10:40 Urine RBC Negative /hpf (0-2) 04/13/17 10:40 Urine WBC 0 - 2 /hpf (0-6) 04/13/17 10:40 Ur Epithelial Cells None /hpf (0-5) 04/13/17 10:40 Amorphous Sediment Small 04/13/17 10:40 Urine Bacteria Many (NEG) 04/13/17 10:40 - Hospital Course Hospital Course: Initial History of Present Illness on 04/14/17: "56 year old male with past medical history of hypertension, COPD, diabetes, anxiety, depression, and IBS presents to the hospital for 1 week of shortness of breath. Patient noticed his legs becoming more swollen last week and was told by his PMD to take Lasix for the next week. Patient states the medications didn't help and his shortness of breath became worse and he noticed his body becoming more swollen, in particularly in his legs. This morning, his shortness of breath became worse and he came to the hospital for evaluation. Patient admits to being compliant with all his medications. He admits to having orthopnea and dyspnea on exertion. He has never been told he had the diagnosis of CHF in the past. He states he has a low salt diet. Denies chest pain, nausea , vomiting, diarrhea, fever, dysuria, changes in vision, chills." Hospital Course: Patient admitted for evaluation of lower extremity edema and shortness of breath. Congestive Heart Failure was suspected and echocardiogram ordered. Patient had lower extremity dopplers negative for DVT per preliminary report. Patient noted improvement in leg swelling with the IV Lasix. Preliminary reading of the echocardiogram showed EF about 69% with evidence of diastolic dysfunction. Both the patient and the office of his personal material spreader Dr. Ngo were notified. Patient was seen ambulating from bed to bathroom in no respiratory distress and saturating well on room air. Patient advised for low salt, low cholesterol, and low carbohydrate diet. Patient is to follow up with Dr. Diop, material spreader Dr. Ngo, and it systems analyst consultant Dr. Chou (for his next due screening colonoscopy). This is a summary of the hospital course. For more information, refer to the medical records. Discharge Exam - Head Exam Head Exam: ATRAUMATIC, NORMOCEPHALIC - Eye Exam Eye Exam: EOMI, Normal appearance - ENT Exam ENT Exam: Mucous Membranes Moist - Respiratory Exam Respiratory Exam: Wheezes (left sided wheezing), NORMAL BREATHING PATTERN. absent: Rales, Rhonchi, Respiratory Distress - Cardiovascular Exam Cardiovascular Exam: REGULAR RHYTHM, +S1, +S2. absent: JVD - GI/Abdominal Exam GI & Abdominal Exam: Distended, Normal Bowel Sounds, Soft. absent: Tenderness Additional comments: obese body habitus - Extremities Exam Extremities exam: pedal edema (non-pitting), pedal pulses present - Back Exam Back exam: absent: CVA tenderness (L), CVA tenderness (R) - Neurological Exam Neurological exam: Alert, CN II-XII Intact, Normal Gait, Oriented x3 - Psychiatric Exam Psychiatric exam: Normal Affect, Normal Mood - Skin Skin Exam: Dry, Intact, Normal Color, Warm Discharge Plan - Discharge Medications Prescriptions: Benzocaine/Menthol [Cepacol Sore Throat Lozenge] 1 each MM BID PRN #20 lozenge PRN Reason: Sore Throat Ciprofloxacin HCl [Cipro] 500 mg PO BID #10 tablet Furosemide [Lasix] 40 mg PO BID #30 tab - Follow Up Plan Condition: STABLE Disposition: HOME/ ROUTINE Instructions: Heart Failure, Adult Additional Instructions: 1. Follow up with primary physician this week. 2. Follow up with Cardiology, Dr. Ngo this week. 3. Take Lasix 40mg by mouth twice per day. 4. Echo showed EF 69%, diastolic heart failure, RSVP ~50. Mussel Opener, Dr. Ngo was notified. 5. Ciprofloxacin (Antibiotic) 500mg twice per day for 5 days for Urinary tract infection and Upper Respiratory Infection 6. Recommend heart healthy (low salt, low fat and low carbohydrate diet). 7. If there are any new or worsening symptoms, please go to the nearest emergency room. Referrals: Mary Diop DO [Doctor Osteopathy] - Sumaya Ngo MD [Medical Doctor] - Nahun Chou MD [Staff Provider] - Clinical Quality Measures - CQM - Heart Failure Ejection Fraction: 40 % or Greater Left Ventricular Function to be assessed after discharge: Yes JV Inhibitor Prescribed: No Contraindication/Reason for not providing: Patient on ARB Beta-Milad Prescribed: Metoprolol Succinate Angiotensin II Receptor Milad Prescribed: Yes AnticoagulationTherapy for Atrial Fibrillation/Atrialflutter: No Contraindication/Reason for not providing: Not indicated Aldosterone Antagonist Prescribed: No Contraindication/Reason for not providing: Not indicated Hydralazine Nitrate Prescribed: No Contraindication/Reason for not providing: Not indicated Implantable Cardioverter Defibrillator Therapy: No Contraindication/Reason for not providing: Not indicated Cardiac Resynchronization Therapy Prescribed: No Contraindication/Reason for not providing: Not indicated Will be discharged to: Home Follow Up Date (must be within 7 days from discharge): 04/21/17 Follow Up Time: 09:00 <Gallo Harris - Last Filed: 04/14/17 17:06> Provider - Provider Date of Admission: 04/13/17 13:08 Attending physician: Gallo Harris MD Hospital Course - Lab Results Lab Results: Most Recent Lab Values WBC 5.9 10^3/ul (4.5-11.0) 04/14/17 05:40 RBC 4.07 10^6/uL (3.5-6.1) 04/14/17 05:40 Hgb 11.6 g/dL (14.0-18.0) L 04/14/17 05:40 Hct 36.7 % (42.0-52.0) L 04/14/17 05:40 MCV 90.2 fl (80.0-105.0) 04/14/17 05:40 MCH 28.5 pg (25.0-35.0) 04/14/17 05:40 MCHC 31.6 g/dl (31.0-37.0) 04/14/17 05:40 RDW 14.0 % (11.5-14.5) 04/14/17 05:40 Plt Count 223 10^3/uL (120.0-450.0) 04/14/17 05:40 MPV 10.2 fl (7.0-11.0) 04/14/17 05:40 Gran % 63.1 % (50.0-68.0) 04/13/17 08:23 Lymph % (Auto) 23.2 % (22.0-35.0) 04/13/17 08:23 [place] % (Auto) 6.8 % (1.0-6.0) H 04/13/17 08:23 Eos % (Auto) 6.2 % (1.5-5.0) H 04/13/17 08:23 Baso % (Auto) 0.7 % (0.0-3.0) 04/13/17 08:23 Gran # 4.49 (1.4-6.5) 04/13/17 08:23 Lymph # (Auto) 1.7 (1.2-3.4) 04/13/17 08:23 [place] # (Auto) 0.5 (0.1-0.6) 04/13/17 08:23 Eos # (Auto) 0.4 (0.0-0.7) 04/13/17 08:23 Baso # (Auto) 0.05 K/mm3 (0.0-2.0) 04/13/17 08:23 PT 10.5 SECONDS (9.4-12.5) 04/13/17 08:23 INR 0.91 (0.93-1.08) L 04/13/17 08:23 APTT 25.7 Seconds (25.1-36.5) 04/13/17 08:23 Sodium 143 mmol/L (132-148) 04/14/17 05:40 Potassium 3.5 mmol/L (3.6-5.0) L 04/14/17 05:40 Chloride 100 mmol/L (98-107) 04/14/17 05:40 Carbon Dioxide 32 mmol/L (21-33) 04/14/17 05:40 Anion Gap 14 (10-20) 04/14/17 05:40 BUN 18 mg/dL (7-21) 04/14/17 05:40 Creatinine 0.8 mg/dl (0.8-1.5) 04/14/17 05:40 Est GFR ( Amer) > 60 04/14/17 05:40 Est GFR (Non-Af Amer) > 60 04/14/17 05:40 POC Glucose (mg/dL) 350 mg/dL (65-110) H 04/14/17 11:03 Random Glucose 298 mg/dL (70-110) H 04/14/17 05:40 Hemoglobin A1c 8.6 % (4.2-6.5) H 04/13/17 09:30 Calcium 9.0 mg/dL (8.4-10.5) 04/14/17 05:40 Phosphorus 2.7 mg/dL (2.5-4.5) 04/14/17 05:40 Magnesium 1.5 mg/dL (1.7-2.2) L 04/14/17 05:40 Total Bilirubin 0.6 mg/dL (0.2-1.3) 04/14/17 05:40 AST 47 U/L (17-59) 04/14/17 05:40 ALT 68 U/L (7-56) H 04/14/17 05:40 Alkaline Phosphatase 85 U/L (38-126) 04/14/17 05:40 Lactate Dehydrogenase 660 U/L (333-699) 04/13/17 09:25 Total Creatine Kinase 97 U/L (35-230) 04/13/17 09:25 Troponin I < 0.01 ng/mL 04/13/17 09:25 NT-Pro-B Natriuret Pep 257 pg/mL (0-450) 04/13/17 09:25 Total Protein 6.8 g/dL (5.8-8.3) 04/14/17 05:40 Albumin 3.6 g/dL (3.0-4.8) 04/14/17 05:40 Globulin 3.2 gm/dL 04/14/17 05:40 Albumin/Globulin Ratio 1.1 (1.1-1.8) 04/14/17 05:40 Triglycerides 388 mg/dL (35-160) H 04/13/17 09:30 Cholesterol 198 mg/dL (130-200) 04/13/17 09:30 LDL Cholesterol Direct 107 mg/dL (0-129) 04/13/17 09:30 HDL Cholesterol 39 mg/dL (29-60) 04/13/17 09:30 Urine Color Yellow (YELLOW) 04/13/17 10:40 Urine Appearance Sl cloudy (CLEAR) 04/13/17 10:40 Urine pH 6.0 (4.7-8.0) 04/13/17 10:40 Ur Specific [place] 1.020 (1.005-1.035) 04/13/17 10:40 Urine Protein Negative mg/dL (<30 mg/dL) 04/13/17 10:40 Urine Glucose (UA) Negative mg/dL (NEGATIVE) 04/13/17 10:40 Urine Ketones Negative mg/dL (NEGATIVE) 04/13/17 10:40 Urine Blood Negative (NEGATIVE) 04/13/17 10:40 Urine Nitrate Negative (NEGATIVE) 04/13/17 10:40 Urine Bilirubin Negative (NEGATIVE) 04/13/17 10:40 Urine Urobilinogen 0.2 E.U./dL (<1 E.U./dL) 04/13/17 10:40 Ur Leukocyte Esterase Trace Marie/uL (NEGATIVE) H 04/13/17 10:40 Urine RBC Negative /hpf (0-2) 04/13/17 10:40 Urine WBC 0 - 2 /hpf (0-6) 04/13/17 10:40 Ur Epithelial Cells None /hpf (0-5) 04/13/17 10:40 Amorphous Sediment Small 04/13/17 10:40 Urine Bacteria Many (NEG) 04/13/17 10:40 Attending/Attestation - Attestation I have personally seen and examined this patient.: Yes I have fully participated in the care of the patient.: Yes I have reviewed all pertinent clinical information, including history, physical exam and plan: Yes Notes (Text): 04/14/17 16:49 attending note; Patient seen and examined with resident. Patient is a 56 year old male with history of hypertension, former smoker, diabetes, anxiety, depression, chronic back pain is admitted for dyspnea on exertion, orthopnea, bilateral lower extremity swelling and abdominal distension and found to have fluid overload due to CHF exacerbation. CXR prelim suggests pulmonary edema. patient was treated with IV Lasix. leg swelling improved. Dietary education given. echocardiogram showed diastolic dysfunction. Recent stress test was normal as per . Diabetes;; continue insulin per Dr. Goins endocrinology. Patient will be discharged home with po Lasix prescription. Patient will follow-up with cardiology in 3-5 days Upon discharge patient will follow up with Dr Diop and Dr Ngo.
[2017-04-14] MEDS ORDERED: Potassium Chloride 20 mEq ER Tab PO ONE (12:41)
[2017-04-14 14:42] VITALS: BP 116/61; PULSE 72
--- NOTE | 2017-04-14 15:14 | PN ---
DATE: 04/14/2017 LOCATION: Room 362, bed 2. REASON FOR CONSULTATION: Followup shortness of breath, swelling of the legs. SUBJECTIVE: The patient is feeling better. Swelling in his legs is getting better. He denies any chest pain or palpitation. PHYSICAL EXAMINATION: VITAL SIGNS: Blood pressure 136/60, respirations 20, pulse 76, and temperature 97.6. HEENT: Head is normocephalic. Eyes: Pupils normal. Conjunctivae normal. Nose and throat, normal. NECK: JVP low. Carotids are equal. THORAX: AP diameter normal. LUNGS: Clear. CARDIOVASCULAR: S1 and S2. ABDOMEN: Protuberant. No organomegaly. EXTREMITIES: No clubbing. No cyanosis or edema. LABORATORY DATA: Labs as compared to yesterday, WBC 5.9, hemoglobin 11.6, hematocrit 36.7, and platelet 223. Sodium 143, potassium 3.5, BUN 18, creatinine 0.8, random sugar 350, and magnesium 1.5. Total protein and albumin normal. DIAGNOSES: Shortness of breath, swelling of legs, chronic obstructive pulmonary disease, chronic venous stasis rule out right heart failure, diabetes, hypertension, high cholesterol, high triglycerides, glaucoma, anxiety, depression, irritable bowel syndrome, obesity, rule out sleep apnea. PLAN: The patient states that he sees Dr. Ngo in [place], his phone number is [phone]. According to the patient, he had a stress test in 12/2016, he was told it was negative. 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 The patient's potassium is low, magnesium is low. We are going to give him additional potassium and magnesium and repeat lab in the morning. Also, I will give Zaroxolyn 5 mg today to further enhance the diuresis and will continue other medications, aspirin 81 mg daily, hydralazine 100 mg t.i.d., losartan 25 daily, potassium 40 p.o. had been already given. The patient is on Lasix 40 IV q. 12 hours, atorvastatin 20, also the patient's mag sulfate 2 gram had been ordered. We will put the patient on gabapentin 600 mg p.o. q.i.d., Protonix 40 daily, metoprolol 50 b.i.d., Zoloft 100 daily. We will add K-Dur 20 p.o. daily also to therapy. Landy Ramírez MD
--- NOTE | 2017-04-14 20:23 | CARD ---
APPROVED REPORT EXAM: Two-dimensional and M-mode echocardiogram with Doppler and color Doppler. INDICATION 2D DIMENSIONS IVSd1.2 (0.7-1.1cm)LVDd4.4 (3.9-5.9cm) PWd1.4 (0.7-1.1cm)LVDs2.7 (2.5-4.0cm) FS (%) 38.6 %LVEF (%)69.1 (>50%) M-Mode DIMENSIONS Left Atrium (MM)4.60 (2.5-4.0cm)Aortic Root3.10 (2.2-3.7cm) Aortic Cusp Exc.1.90 (1.5-2.0cm) Aortic Valve AoV Peak Dhutdiav506.0cm/Damian Peak GR.14mmHg Mitral Valve MV E Mpsnmhss351.0cm/sMV A Mzzwmqgz00.0cm/sE/A ratio1.5 TDI Lateral E' Peak V13.50cm/sMedial E' Peak V9.55cm/sE/Lateral E'8.2 E/Medial E'11.6 Tricuspid Valve TR Peak Johuuvkn062cx/sRAP [id number] Peak Gr.41mmHg [id number] LEFT VENTRICLE The left ventricle is normal size. There is mild concentric left ventricular hypertrophy. The left ventricular function is normal. The left ventricular ejection fraction is within the normal range. There is normal LV segmental wall motion. Transmitral Doppler flow pattern is Grade II-pseudonormal filling dynamics. RIGHT VENTRICLE The right ventricle is normal size. There is normal right ventricular wall thickness. The right ventricular systolic function is normal. ATRIA The left atrium is mildly dilated. The right atrium is mildly dilated. AORTIC VALVE The aortic valve is moderately thickened. There is trace aortic regurgitation. MITRAL VALVE The mitral valve is mildly thickened. Mitral regurgitation is trace. TRICUSPID VALVE There is mild tricuspid regurgitation. There is moderate pulmonary hypertension. GREAT VESSELS The aortic root is normal in size. The IVC is normal in size and collapses >50% with inspiration. PERICARDIAL EFFUSION There is a trace loculated anterior pericardial effusion. <Conclusion> The left ventricle is normal size. There is mild concentric left ventricular hypertrophy. The left ventricular function is normal. The left ventricular ejection fraction is within the normal range. There is normal LV segmental wall motion. Transmitral Doppler flow pattern is Grade II-pseudonormal filling dynamics. There is mild tricuspid regurgitation. There is moderate pulmonary hypertension.
[2017-04-15] MEDS ORDERED: Potassium Chloride 20 mEq ER Tab PO SCH (08:00)
== END 2017-04-14 16:22 | disposition home or self-care (01) ==
LOC: ED 05:56 → ERH 13:08 → 3RNO 18:52
PROVIDERS: ADMIT Hospitalist; ATTEND Internal Medicine
DX: I11.0 Hypertensive heart disease with heart failure (principal); I50.30 Unspecified diastolic (congestive) heart failure; E11.9 Type 2 diabetes mellitus without complications; F41.9 Anxiety disorder, unspecified; G89.29 Other chronic pain; M54.9 Dorsalgia, unspecified; F32.9 Major depressive disorder, single episode, unspecified; J44.9 Chronic obstructive pulmonary disease, unspecified; K58.9 Irritable bowel syndrome, unspecified; E78.00 Pure hypercholesterolemia, unspecified; E66.9 Obesity, unspecified; I87.2 Venous insufficiency (chronic) (peripheral); K21.9 Gastro-esophageal reflux disease without esophagitis; H40.9 Unspecified glaucoma; Z87.891 Personal history of nicotine dependence; Z88.0 Allergy status to penicillin
CPT/HCPCS: 36415; 71045; 80053; 80061; 81001; 82550; 82948; 83036; 83615; 83735; 83880; 84100; 84484; 85025; 85027; 85610; 85730; 87086; 87181; 93005; 93306; 93970; 96372; 96374; 99285; G0378; J1644; J1940; J3475

== ENCOUNTER 2017-05-10 15:22 | Inpatient (IN) | payer MEDICAID ==
[2017-05-10] MEDS ORDERED: Albuterol-Ipratrop 3 mg / 0.5 (3 ml) UD IH STA (15:40)
[2017-05-10] MEDS ORDERED: Nitroglycerin 2% Ointment Foilpak UD TOP STA (15:42)
--- NOTE | 2017-05-10 15:43 | ED PDOC ---
Arrival/HPI - General Chief Complaint: Shortness Of Breath Time Seen by Provider: 05/10/17 15:32 Historian: Patient - History of Present Illness Narrative History of Present Illness (Text): 05/10/17 15:48 Og Vick is a 56 year old male, whose past medical history includes Diaystolic CHF, COPD, diabetes, and anxiety/depression, who presents to the Emergency Department complaining of shortness or breast and chest pain since yesterday. Patient notes chest pain feels like a burning sensation below the left nipple area. Patient notes he takes 80mg of Furosemide in the day and 40 mg at night. He also states he has been urinating less. Patient denies any fever , chills, nausea, vomiting, diarrhea, back pain, neck pain, headache, dizziness , or any other complaints. PMD: Dr. Thomas Time/Duration: Other (today) Symptom Onset: Gradual Symptom Course: Unchanged Activities at Onset: Light Context: Home Past Medical History - Provider Review Nursing Documentation Reviewed: Yes - Infectious Disease Hx of Infectious Diseases: None - Tetanus Immunization Tetanus Immunization: Unknown - Cardiac Hx Hypertension: Yes - Pulmonary Hx Respiratory Disorders: Yes Hx Chronic Obstructive Pulmonary Disease (COPD): Yes - Neurological Hx Neurological Disorder: No Hx Paralysis: No - HEENT Hx HEENT Disorder: No Hx Glaucoma: Yes (Left > Right) - Renal Hx Renal Disorder: No - Endocrine/Metabolic Hx Diabetes Mellitus Type 2: Yes - Hematological/Oncological Hx Blood Disorders: No - Integumentary Hx Dermatological Disorder: Yes Other/Comment: BOTH LEGS WITH CHRONIC VASCULAR, AND DIABETIC SWELLING. NO OPEN ULCERATIONS AT PRESENT. LEFT FACIAL FADING ECCYMOSIS ABOVE LIP AND CHEEK - Musculoskeletal/Rheumatological Hx Musculoskeletal Disorders: No - Gastrointestinal Hx Gastrointestinal Disorders: Yes Hx Gastroesophageal Reflux: Yes - Genitourinary/Gynecological Hx Genitourinary Disorders: No - Psychiatric Hx Anxiety: Yes Hx Substance Use: No - Past Surgical History Past Surgical History: No Previous - Surgical History Hx Tonsillectomy: Yes - Anesthesia Hx Anesthesia Reactions: No Hx Malignant Hyperthermia: No - Suicidal Assessment Feels Threatened In Home Enviroment: No Family/Social History - Physician Review Nursing Documentation Reviewed: Yes Family/Social History: Unknown Family HX Smoking Status: Former Smoker Hx Alcohol Use: No Hx Substance Use: No Hx Substance Use Treatment: No Allergies/Home Meds Allergies/Adverse Reactions: Allergies Penicillins Allergy (Verified 02/03/17 13:25) ANAPHYLAXIS Home Medications: Home Meds Medication Instructions Recorded Confirmed Alprazolam [Xanax] 0.5 mg PO DAILY PRN 04/13/17 04/13/17 Aspirin [Aspirin Chewable] 81 mg PO DAILY 04/13/17 04/13/17 Bupropion HCl [Wellbutrin Sr] 150 mg PO DAILY 04/13/17 04/13/17 Cyclobenzaprine [Flexeril] 10 mg PO TID PRN 04/13/17 04/13/17 Diclofenac Sodium [Voltaren] 100 gm TP QID 04/13/17 04/13/17 Gabapentin [Neurontin] 600 mg PO QID 04/13/17 04/13/17 Hydralazine HCl 100 mg PO TID 04/13/17 04/13/17 Metoprolol Succinate [Toprol Xl] 50 mg PO BID 04/13/17 04/13/17 Pantoprazole Sodium [Protonix] 40 mg PO DAILY 04/13/17 04/13/17 Sertraline [Zoloft] 100 mg PO DAILY 04/13/17 04/13/17 Simvastatin [Zocor] 40 mg PO HS 04/13/17 04/13/17 Valsartan [Diovan] 25 mg PO DAILY 04/13/17 04/13/17 Vortioxetine Hydrobromide 10 mg PO DAILY 05/10/17 05/10/17 [Trintellix] Review of Systems - Physician Review All systems were reviewed & negative as marked: Yes - Review of Systems Constitutional: Normal Eyes: Normal ENT: Normal Respiratory: SOB. absent: Cough Cardiovascular: Chest Pain (left chest pain). absent: Palpitations Gastrointestinal: Normal. absent: Abdominal Pain, Diarrhea, Nausea, Vomiting Genitourinary Male: Dysuria, Urinary Output Changes Musculoskeletal: Normal. absent: Back Pain, Neck Pain Skin: Normal. absent: Rash Neurological: Normal. absent: Headache, Dizziness Endocrine: Normal Hemo/Lymphatic: Normal Psychiatric: Normal Physical Exam Vital Signs Reviewed: Yes Vital Signs Temp Pulse Resp BP Pulse Ox 05/10/17 16:35 95 H 18 125/52 L 97 05/10/17 15:56 146/86 05/10/17 15:32 97.3 F L 95 H 24 146/76 98 Temperature: Afebrile Blood Pressure: Normal Pulse: Regular Respiratory Rate: Normal Appearance: Positive for: Well-Appearing, Non-Toxic, Comfortable Pain Distress: None Mental Status: Positive for: Alert and Oriented X 3 - Systems Exam Head: Present: Atraumatic, Normocephalic Pupils: Present: PERRL Extroacular Muscles: Present: EOMI Conjunctiva: Present: Normal Mouth: Present: Moist Mucous Membranes Neck: Present: Normal Range of Motion Respiratory/Chest: Present: Clear to Auscultation, Decreased Breath Sounds ( bilateral), Rales (Rt sided rhales). No: Accessory Muscle Use Cardiovascular: Present: Regular Rate and Rhythm, Normal S1, S2. No: Murmurs Abdomen: Present: Normal Bowel Sounds. No: Tenderness, Distention, Peritoneal Signs Back: Present: Normal Inspection Upper Extremity: Present: Normal Inspection. No: Cyanosis, Edema Lower Extremity: Present: Edema (LLE edema +1). No: Normal Inspection Neurological: Present: GCS=15, CN II-XII Intact, Speech Normal Skin: Present: Warm, Dry, Normal Color. No: Rashes Psychiatric: Present: Alert, Oriented x 3, Normal Insight, Normal Concentration Medical Decision Making ED Course and Treatment: 05/10/17 15:44 Impression: 56 year old male presents to the emergency room complaining of shortness of breath and chest pain. Differential Diagnosis included but are not limited to: Congestive heart failure exacerbation; Chronic obstructive pulmonary disease exacerbation vs. Rule out pneumonia Plan: -- EKG -- Chest X-ray -- Cardiac Enzymes -- Labs -- Duoneb -- Lasix -- Medrol -- NTG -- Zofran -- Blood Culture -- Urinalysis -- Oxygen -- Reassess and disposition Prior Visits: Notes and results from previous visits were reviewed. Patient was seen in the Emergency Department on 03/13/17 for leg edema. P was discharged. Progress Notes: 05/10/17 16:56 EKG reviewed, shows NSR at [address] elevations. No depressions. 05/10/17 17:30 CXR shows vascular congestion b/l but no infiltrates. Case discussed with Steve , hospitalist, who will accept this patient to his service. Aspirin ordered for patient. - Lab Interpretations Lab Results: 05/10/17 15:45 05/10/17 15:45 Lab Results 05/10/17 16:00: Urine Color Yellow, Urine Appearance Clear, Urine pH 6.0, Ur Specific [place] 1.010, Urine Protein Negative, Urine Glucose (UA) Negative, Urine Ketones Negative, Urine Blood Negative, Urine Nitrate Negative, Urine Bilirubin Negative, Urine Urobilinogen 0.2, Ur Leukocyte Esterase Negative 05/10/17 15:45: Sodium 145, Potassium 3.6, Chloride 99, Carbon Dioxide 30, Anion Gap 19, BUN 50 H, Creatinine 1.1, Est GFR ( Amer) > 60, Est GFR ( Non-Af Amer) > 60, Random Glucose 164 H, Calcium 10.8 H, Total Bilirubin 0.6, AST 79 H D, ALT 115 H, Alkaline Phosphatase 98, Lactate Dehydrogenase 753 H, Total Creatine Kinase 80, Troponin I < 0.01, NT-Pro-B Natriuret Pep 57.3, Total Protein 7.9, Albumin 4.5, Globulin 3.4, Albumin/Globulin Ratio 1.4 05/10/17 15:45: PT 11.8, INR 1.03, APTT 28.9 05/10/17 15:45: WBC 7.4 D, RBC 4.37, Hgb 12.5 L, Hct 38.4 L, MCV 87.9, MCH 28.6 , MCHC 32.6, RDW 13.9, Plt Count 261, MPV 9.8, Gran % 62.1, Lymph % (Auto) 26.6 , [place] % (Auto) 8.0 H, Eos % (Auto) 2.6, Baso % (Auto) 0.7, Gran # 4.59, Lymph # (Auto) 2.0, [place] # (Auto) 0.6, Eos # (Auto) 0.2, Baso # (Auto) 0.05 - RAD Interpretation Radiology Orders: 05/10/17 15:41 CHEST PORTABLE [RAD] Stat - Medication Orders Current Medication Orders: Discontinued Medications Albuterol/Ipratropium (Duoneb 3 Mg/0.5 Mg (3 Ml) Ud) 3 ml IH STAT STA Stop: 05/10/17 15:41 Last Admin: 05/10/17 15:57 Dose: 3 ml Furosemide (Lasix) 40 mg IVP STAT STA Stop: 05/10/17 15:41 Last Admin: 05/10/17 15:56 Dose: 40 mg MAR Blood Pressure Document 05/10/17 15:56 EWO (Rec: 05/10/17 15:56 EWO [id number]) Blood Pressure Blood Pressure (100/60-150/90 mm Hg) 146/86 IVP Administration Document 05/10/17 15:56 EWO (Rec: 05/10/17 15:56 EWO [id number]) Charges for Administration # of IVP Administrations 1 Methylprednisolone (Solu-Medrol) 125 mg IVP STAT STA Stop: 05/10/17 15:41 Last Admin: 05/10/17 15:56 Dose: 125 mg IVP Administration Document 05/10/17 15:56 EWO (Rec: 05/10/17 15:56 EWO [id number]) Charges for Administration # of IVP Administrations 1 Nitroglycerin (Nitro-Bid 2% Oint) 1 ea TOP STAT STA Stop: 05/10/17 15:43 Last Admin: 05/10/17 15:56 Dose: 1 ea Ondansetron HCl (Zofran Inj) 4 mg IVP STAT STA Stop: 05/10/17 15:42 Last Admin: 05/10/17 15:56 Dose: 4 mg IVP Administration Document 05/10/17 15:56 EWO (Rec: 05/10/17 15:56 EWO [id number]) Charges for Administration # of IVP Administrations 1 - Scribe Statement The provider has reviewed the documentation as recorded by the Scribe Documented by Katheryn Flores acting as a scribe for Lonnie Blancas DO. Disposition/Present on Arrival - Present on Arrival Any Indicators Present on Arrival: Yes History of DVT/PE: No History of Uncontrolled Diabetes: Yes Urinary Catheter: No History of Decub. Ulcer: No History Surgical Site Infection Following: None - Disposition Have Diagnosis and Disposition been Completed?: Yes Diagnosis: Congestive heart failure, Chest pain Disposition: HOSPITALIZED Disposition Time: 17:37 Patient Plan: Observation Condition: FAIR Discharge Instructions (ExitCare): Heart Failure (ED), Chest Pain (ED) Forms: [employer] (Welsh)
[2017-05-10 16:08] LABS: BASO # 0.05 K/mm3 (0.0-2.0); BASO % 0.7 % (0.0-3.0); EOS # 0.2 (0.0-0.7); EOS % 2.6 % (1.5-5.0); GRAN # 4.59 (1.4-6.5); GRAN % 62.1 % (50.0-68.0); HEMOGLOBIN 12.5 g/dL (14.0-18.0); LYMPH % 26.6 % (22.0-35.0); MEAN CELL VOLUME 87.9 fl (80.0-105.0); MEAN CORPUSCULAR HEMOGLOBIN 28.6 pg (25.0-35.0); MEAN CORPUSCULAR HGB CONC 32.6 g/dl (31.0-37.0); MEAN PLATELET VOLUME 9.8 fl (7.0-11.0); MONO # 0.6 (0.1-0.6); RBC 4.37 10^6/uL (3.5-6.1); RED CELL DISTRIBUTION WIDTH 13.9 % (11.5-14.5); WHITE BLOOD COUNT 7.4 10^3/ul (4.5-11.0)
[2017-05-10 16:17] LABS: INR 1.03 (0.93-1.08); PARTIAL THROMBOPLASTIN TIME 28.9 Seconds (25.1-36.5); PROTHROMBIN TIME 11.8 SECONDS (9.4-12.5)
[2017-05-10 16:25] LABS: ALB/GLOB RATIO 1.4 (1.1-1.8); ALBUMIN 4.5 g/dL (3.0-4.8); ALT/SGPT 115 U/L (7-56); AST/SGOT 79 U/L (17-59); BLOOD UREA NITROGEN 50 mg/dL (7-21); CALCIUM 10.8 mg/dL (8.4-10.5); GFR AFRICAN-AMERICAN > 60; GFR NON-AFRICAN AMERICAN > 60
[2017-05-10 16:32] LABS: B-TYPE NATRIURETIC PEPTIDE 57.3 pg/mL (0-450); TROPONIN I < 0.01 ng/mL
[2017-05-10 17:06] LABS: URINE BILIRUBIN NEGATIVE (NEGATIVE); URINE BLOOD NEGATIVE (NEGATIVE); URINE GLUCOSE (UA) NEGATIVE (NEGATIVE); URINE LEUKOCYTE ESTERASE NEGATIVE Leu/uL (NEGATIVE); URINE PROTEIN NEGATIVE mg/dL (<30 mg/dL); URINE UROBILINOGEN 0.2 E.U./dL (<1 E.U./dL)
[2017-05-10 17:26] LABS: URINE APPEARANCE CLEAR (CLEAR); URINE COLOR YELLOW (YELLOW)
[2017-05-10] MEDS ORDERED: Benzocaine/Menthol (Cepacol) Lozenge MM PRN (19:16)
--- NOTE | 2017-05-10 19:44 | CP.PCM.HP ---
<Ran Sellers - Last Filed: 05/10/17 20:08> History of Present Illness - History of Present Illness History of Present Illness: Medicine H and P For Dr. Wilson 56 year old male with past medical history of hypertension, COPD, diabetes, anxiety, depression, and IBS presents to the hospital for 1 day of shortness of breath and chest pain. Last month, Patient noticed his legs becoming more swollen and was told by his PMD to take Lasix for the next week. Patient states the medications didn't help and his shortness of breath became worse and he noticed his body becoming more swollen, in particularly in his legs. He was admitted here at [facility] the following week for a CHF Exacerbation. This morning, his shortness of breath and chest pain started abruptly. Patient admits to being compliant with all his medications. In the past when patient has had a CHF exacerbation, his BNP has been only mildly elevated. Patient denies any fevers, chills, nausea vomiting. Past medical history: Hypertension, COPD, diabetes, anxiety, depression, chronic back pain and IBS Surgical history: Tonsillectomy Family history: CHF, DVT Social history: Former smoker, quit 14 years ago. 4 ppd x 24 years. Denies alcohol or illicit drug use. Disabled. 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 ROS: 12 point review of systems negative except HPI Present on Admission - Present on Admission Any Indicators Present on Admission: No Past Patient History - Infectious Disease Hx of Infectious Diseases: None - Tetanus Immunizations Tetanus Immunization: Unknown - Past Medical History & Family History Past Medical History?: Yes - Past Social History Smoking Status: Former Smoker - CARDIAC Hx Hypertension: Yes - PULMONARY Hx Respiratory Disorders: Yes Hx Chronic Obstructive Pulmonary Disease (COPD): Yes - NEUROLOGICAL Hx Neurological Disorder: No Hx Paralysis: No - HEENT Hx HEENT Problems: No Hx Glaucoma: Yes (Left > Right) - RENAL Hx Chronic Kidney Disease: No - ENDOCRINE/METABOLIC Hx Diabetes Mellitus Type 2: Yes - HEMATOLOGICAL/ONCOLOGICAL Hx Blood Disorders: No - INTEGUMENTARY Hx Dermatological Problems: Yes Other/Comment: BOTH LEGS WITH CHRONIC VASCULAR, AND DIABETIC SWELLING. NO OPEN ULCERATIONS AT PRESENT. LEFT FACIAL FADING ECCYMOSIS ABOVE LIP AND CHEEK - MUSCULOSKELETAL/RHEUMATOLOGICAL Hx Musculoskeletal Disorders: No - GASTROINTESTINAL Hx Gastrointestinal Disorders: Yes Hx Gastroesophageal Reflux: Yes - GENITOURINARY/GYNECOLOGICAL Hx Genitourinary Disorders: No - PSYCHIATRIC Hx Anxiety: Yes Hx Substance Use: No - SURGICAL HISTORY Hx Tonsillectomy: Yes - ANESTHESIA Hx Anesthesia Reactions: No Hx Malignant Hyperthermia: No Meds Allergies/Adverse Reactions: Allergies Allergy/AdvReac Type Severity Reaction Status Date / Time oregano Allergy NAUSEA Verified 05/11/17 02:28 Penicillins Allergy ANAPHYLAXIS Verified 02/03/17 13:25 Physical Exam - Constitutional Appears: Well - Head Exam Head Exam: ATRAUMATIC, NORMAL INSPECTION, NORMOCEPHALIC - Eye Exam Eye Exam: EOMI, Normal appearance, PERRL Pupil Exam: NORMAL ACCOMODATION, PERRL - ENT Exam ENT Exam: Mucous Membranes Moist, Normal Exam - Neck Exam Neck exam: Positive for: Normal Inspection - Respiratory Exam Respiratory Exam: Decreased Breath Sounds, Wheezes. absent: Accessory Muscle Use, Chest Wall Tenderness - Cardiovascular Exam Cardiovascular Exam: REGULAR RHYTHM - GI/Abdominal Exam GI & Abdominal Exam: Normal Bowel Sounds, Soft. absent: Tenderness - Extremities Exam Extremities exam: Positive for: normal inspection Additional comments: Bilateral trace pitting edema - Back Exam Back exam: NORMAL INSPECTION - Neurological Exam Neurological exam: Alert, CN II-XII Intact, Normal Gait, Oriented x3, Reflexes Normal - Psychiatric Exam Psychiatric exam: Normal Affect, Normal Mood - Skin Skin Exam: Dry, Intact, Normal Color, Warm Results - Vital Signs Recent Vital Signs: Last Vital Signs Temp 97.3 F L 05/10/17 15:32 Pulse 93 H 05/10/17 18:35 Resp 20 05/10/17 18:35 BP 132/52 L 05/10/17 18:35 Pulse Ox 97 05/10/17 18:35 - Labs Result Diagrams: 05/10/17 15:45 05/10/17 15:45 Assessment & Plan - Assessment and Plan (Free Text) Assessment: Assessment and Plan 56 year old male with past medical history of hypertension, COPD, diabetes, anxiety, depression, back pain, and IBS presents with shortness of breath and mild chest pain. Shortness of Breath likely 2/2 COPD VS CHF exacerbation (these are more likely) VS PE (less likely) - Lasix 40 mg IV q12h - Resume home Valsartan, Toprol, Simvastatin, ASA - Strict I's and O's, Daily weights - Echocardiogram was read on last admission - CTA PE protocol - Cardiology consulted, Dr. Ramírez Transaminitis likely 2/2 hepatic congestion - Monitor at this time - Hepatitis panel Hypercalcemia likely 2/2 Dehydration - Monitor at this time, consider PTH, Hypercalcemia work-up if does not resolve - Hold fluids at this time 2/2 possible CHF Exacerbation History of CHF - See first assessment - Aspirin, Toprol, Statin (although patient has mild transaminitis, levels are not high enough to hold statin) History of Hypertension - Resume home Metoprolol 50 bid, Valsartan 25 Daily - Hold Hydralazine patient is normotensive History of Diabetes - Insulin sliding scale medium History of Anxiety/Depression - Resume home Wellbutrin, Xanax, Zoloft History of Chronic back pain - Resume home Gabapentin, Cyclobenzaprine, Voltaren, Naproxen Prophylaxis: Protonix, Heparin Heart Healthy, Moderate CHO Diet <Darlyn Wilson - Last Filed: 05/11/17 07:08> Results - Vital Signs Recent Vital Signs: Last Vital Signs Temp 97.5 F L 05/11/17 06:00 Pulse 76 05/11/17 06:00 Resp 20 05/11/17 06:00 BP 98/41 L 05/11/17 06:23 Pulse Ox 97 05/11/17 06:00 - Labs Result Diagrams: 05/11/17 06:00 05/10/17 15:45 Labs: Laboratory Results - last 24 hr 05/10/17 05/11/17 21:53 06:00 WBC 9.0 D RBC 4.11 Hgb 11.7 L Hct 36.1 L MCV 87.8 MCH 28.5 MCHC 32.4 RDW 14.0 Plt Count 257 MPV 10.0 POC Glucose (mg/dL) 121 H Attending/Attestation - Attestation I have personally seen and examined this patient.: Yes I have fully participated in the care of the patient.: Yes I have reviewed all pertinent clinical information: Yes Notes (Text): 05/10/17 56 year old male with past medical history of diastolic CHF, COPD, diabetes, and depression who presents with complaint of shortness of breath, lower extremity edema and chest pain. Although PBNP is negative, CXR shows some congestion. Will start on iv lasix bid. Resume home cardiac medications. Serial cardiac enzymes will be obtained to rule out ACS and cardiology evaluation is requested. Recent echocardiogram from last month was reviewed. He also reports he had a negative stress test few months prior. CT angiogram and LE dopplers were also ordered. Transaminitis possibly secondary to hepatic congestion vs fatty liver. Will continue to monitor. Hepatitis panel is ordered. Darlyn Wilson MD Hospitalist.
[2017-05-10] MEDS: Metoprolol Succinate 50 mg XL Tab PO SCH (20:05)
[2017-05-10] MEDS ORDERED: Insulin Regular 1 UNITS/0.01 ML ML SC SCH (22:00)
--- NOTE | 2017-05-10 22:05 | US ---
HISTORY: Leg pain and swelling. Evaluate for DVT PHYSICIAN(S): Seth Sin MD. TECHNIQUE: Duplex sonography and color-flow Doppler with graded compression were used to evaluate the deep venous systems of both lower extremities. FINDINGS: The visualized deep venous systems of both lower extremities are sonographically normal and compressible. Normal wave forms and augmentation are seen. There is no sonographic evidence for deep venous thrombosis in the visualized segments of both lower extremities. IMPRESSION: No sonographic evidence for deep venous thrombosis in the visualized segments of both lower extremities.
[2017-05-10] MEDS: Insulin Reg-MEDIUM-Coverage SC SCH (22:12)
--- NOTE | 2017-05-10 22:50 | CT ---
EXAM: CT Angiography Chest With Intravenous Contrast CLINICAL HISTORY: 56 years old, male; Signs and symptoms; Shortness of breath; Additional info: SOB , tachycardia TECHNIQUE: Axial computed tomographic angiography images of the chest with intravenous contrast using pulmonary embolism protocol. All CT scans at this facility use one or more dose reduction techniques, viz.: automated exposure control; ma/kV adjustment per patient size (including targeted exams where dose is matched to indication; i.e. head); or iterative reconstruction technique. MIP reconstructed images were created and reviewed. Coronal and sagittal reformatted images were created and reviewed. CONTRAST: 145 mL of OMNI 350 administered intravenously. COMPARISON: DX - CHEST PORTABLE 2017-05-10 15:50 FINDINGS: Limitations: Streak artifact - mild. Motion artifact - mild to moderate. Pulmonary arteries: No definite pulmonary embolism. Aorta: No aneurysm. No dissection. Lungs: Mild dependent atelectasis. Few scattered mild peripheral groundglass opacities. No consolidation. Pleural space: No significant effusion. No pneumothorax. Heart: Mild cardiomegaly. No significant pericardial effusion. Mediastinum: Probable small hiatal hernia. Thyroid: Subcentimeter cyst or nodule RIGHT lobe. Bones/joints: No acute fracture. Soft tissues: Minimal gynecomastia. Lymph nodes: No pathologically enlarged lymph nodes. Liver: Fatty infiltration. Adrenals: 2.6 x 2.3 x 3.0 cm lesion within LEFT adrenal gland, indeterminate by CT criteria. IMPRESSION: 1. No definite CT evidence of pulmonary embolism. 2. Groundglass opacities, nonspecific. Consider inflammatory or infectious etiologies. 3. Adrenal lesion, indeterminate. Compare with prior examinations otherwise recommend nonemergent MRI. 4. Incidental/non-acute findings are described above.
[2017-05-11 00:22] VITALS: BMI 43.7
[2017-05-11 06:58] LABS: HEMOGLOBIN 11.7 g/dL (14.0-18.0); MEAN CELL VOLUME 87.8 fl (80.0-105.0); MEAN CORPUSCULAR HEMOGLOBIN 28.5 pg (25.0-35.0); MEAN CORPUSCULAR HGB CONC 32.4 g/dl (31.0-37.0); RBC 4.11 10^6/uL (3.5-6.1)
--- NOTE | 2017-05-11 07:12 | RAD ---
HISTORY: sob r/o chf COMPARISON: Comparison is made with 04/13/2017 FINDINGS: LUNGS: No evidence of new infiltrate or consolidation in the lungs. Mild pulmonary vascular congestion. PLEURA: No significant pleural effusion identified, no pneumothorax apparent. CARDIOVASCULAR: The cardiac silhouette is mildly enlarged OSSEOUS STRUCTURES: No significant abnormalities. VISUALIZED UPPER ABDOMEN: Normal. OTHER FINDINGS: None. IMPRESSION: Mild pulmonary vascular congestion.
[2017-05-11 07:27] LABS: ALB/GLOB RATIO 1.2 (1.1-1.8); ALBUMIN 4.2 g/dL (3.0-4.8); ALT/SGPT 99 U/L (7-56); AST/SGOT 54 U/L (17-59); BLOOD UREA NITROGEN 50 mg/dL (7-21); CALCIUM 10.1 mg/dL (8.4-10.5); GFR AFRICAN-AMERICAN > 60; GFR NON-AFRICAN AMERICAN 57
[2017-05-11] MEDS: Insulin Reg-MEDIUM-Coverage SC SCH ×4 (08:06→21:14)
[2017-05-11 08:25] LABS: TROPONIN I < 0.01 ng/mL
[2017-05-11] MEDS: Metoprolol Succinate 50 mg XL Tab PO SCH ×2 (10:02→17:39)
[2017-05-11] MEDS: buPROPion SR 150 MG TABLET PO SCH (10:02)
[2017-05-11] MEDS: Potassium Chloride 20 mEq ER Tab PO SCH (10:02)
[2017-05-11] MEDS: Pantoprazole 40 mg EC Tab PO SCH (10:03)
--- NOTE | 2017-05-11 10:47 | CARD ---
APPROVED REPORT EKG Measurement Heart [id number] <Conclusion> Normal sinus rhythm Moderate voltage criteria for LVH, may be normal variant Q in 3 NSSTW changes No change except the QTc is normal now.
[2017-05-11 14:10] LABS: TROPONIN I < 0.01 ng/mL
--- NOTE | 2017-05-11 14:56 | CP.PCM.PN ---
<Paula Lee - Last Filed: 05/11/17 15:27> Subjective - Date & Time of Evaluation Date of Evaluation: 05/11/17 Time of Evaluation: 07:30 - Subjective Subjective: Paula Lee DO PGY1 - IM Progress Note Patient seen and examined at bedside. Per nursing staff, no acute events overnight. Patient reports 30% improvement in his shortness of breath, continues to have dyspnea on exertion. He denies shortness of breath when supine , but does sleep with his head elevated in a hospital-style bed at home, as well as two pillows; reports "dizziness" when he lies flat. He denies chest pain , abdominal pain, fever, chills. Does report an instance of palpitations overnight, which resolved with xanax administration. Patient is concerned about his urine output, that it is too little, and is worried about getting "all the fluid out". Objective - Vital Signs/Intake and Output Vital Signs (last 24 hours): Temp Pulse Resp BP Pulse Ox 97.6 F 71 18 112/60 97 05/11/17 11:57 05/11/17 14:00 05/11/17 11:57 05/11/17 11:57 05/11/17 06:00 Intake and Output: 05/11/17 05/11/17 06:59 18:59 Intake Total 300 Output Total 550 Balance -250 - Medications Medications: Current Medications Alprazolam (Xanax) 0.5 mg PO DAILY PRN; Protocol PRN Reason: Anxiety Last Admin: 05/10/17 23:29 Dose: 0.5 mg Aspirin (Aspirin Chewable) 81 mg PO DAILY [facility] Last Admin: 05/11/17 10:03 Dose: 81 mg Atorvastatin Calcium (Lipitor) 20 mg PO HS [facility] Last Admin: 05/10/17 22:15 Dose: 20 mg Benzocaine/Menthol (Cepacol Sore Throat) 1 yoko MM BID PRN PRN Reason: Sore Throat Bupropion HCl (Wellbutrin Sr 150 Mg) 150 mg PO DAILY [facility] Last Admin: 05/11/17 10:02 Dose: 150 mg Cyclobenzaprine HCl (Flexeril) 10 mg PO TID PRN PRN Reason: Muscle spasm Gabapentin (Neurontin) 600 mg PO QID [facility] PRN Reason: Protocol Last Admin: 05/11/17 14:03 Dose: 600 mg Heparin Sodium (Porcine) (Heparin) 5,000 units SC Q12 [facility] PRN Reason: Protocol Last Admin: 05/11/17 10:01 Dose: 5,000 units Insulin Human Regular (Humulin R) 5 units SC HS [facility] Last Admin: 05/10/17 22:11 Dose: Not Given Insulin Human Regular (Humulin R Med) 0 units SC ACHS [facility] PRN Reason: Protocol Last Admin: 05/11/17 11:38 Dose: 5 units Metoprolol Succinate (Toprol Xl) 50 mg PO BID [facility] Last Admin: 05/11/17 10:02 Dose: 50 mg (Diclofenac Sodium [ Voltaren] 100 Gm) ( Home Med) 100 gm TP QID [facility] (Valsartan [Diovan] (25 Mg)) 25 mg PO DAILY [facility] (Vortioxetine Hydrobromide [ Trintellix] 10 Mg) (Home Med) 10 mg PO DAILY [facility] Pantoprazole Sodium (Protonix Ec Tab) 40 mg PO DAILY [facility] Last Admin: 05/11/17 10:03 Dose: 40 mg Potassium Chloride (K-Dur 20 Meq Er Tab) 20 meq PO DAILY [facility] Last Admin: 05/11/17 10:02 Dose: 20 meq Sertraline HCl (Zoloft) 100 mg PO DAILY [facility] Last Admin: 05/11/17 10:03 Dose: 100 mg - Labs Labs: 05/11/17 06:00 05/11/17 06:00 PT 11.8 SECONDS (9.4-12.5) 05/10/17 15:45 INR 1.03 (0.93-1.08) 05/10/17 15:45 APTT 28.9 Seconds (25.1-36.5) 05/10/17 15:45 - Constitutional Appears: Non-toxic, No Acute Distress, Other (Obese) - Head Exam Head Exam: ATRAUMATIC, NORMOCEPHALIC - Eye Exam Eye Exam: EOMI, Normal appearance, PERRL - ENT Exam ENT Exam: Mucous Membranes Moist - Neck Exam Neck Exam: Full ROM, Normal Inspection - Respiratory Exam Respiratory Exam: Decreased Breath Sounds, NORMAL BREATHING PATTERN. absent: Rhonchi, Wheezes, Respiratory Distress, Stridor Additional comments: Faint bibasilar rales. Decreased breath sounds. - Cardiovascular Exam Cardiovascular Exam: RRR, +S1, +S2. absent: Bradycardia, Tachycardia - GI/Abdominal Exam GI & Abdominal Exam: Soft, Normal Bowel Sounds. absent: Tenderness - Extremities Exam Extremities Exam: Pedal Edema (1+, pitting, to knees). absent: Calf Tenderness - Neurological Exam Neurological Exam: Alert, Awake, Oriented x3 - Psychiatric Exam Psychiatric exam: Normal Affect, Normal Mood - Skin Skin Exam: Dry, Intact, Normal Color Assessment and Plan - Assessment and Plan (Free Text) Assessment: 56 year old male with past medical history of hypertension, COPD, diabetes, anxiety, depression, back pain, and IBS presents with shortness of breath and mild chest pain. Plan Shortness of Breath likely 2/2 CHF exacerbation vs COPD vs chronic PE vs restrictive, insterstitial lung disease vs STEVENSON - Patient has so far recieved one dose of IV steroids, and several doses of IV lasix, without significant diuresis - Per cardio, patient has moderate pulm HTN, as seen on echocardiogram done 04/14 ; clinically, patient is not in acute CHF, BNP is low, trace edema, unchanged by IV diuresis, and lung exam mostly remarkable for decreased breath sounds, patient is clinically dehydrated - IV lasix discontinued by cardio - CTA PE protocol does not show any PE; may require V/Q scan to assess for chronic PE - LE dopplers negative for DVT - Ordered PFTs to assess pulmonary status - Strict I's and O's, Daily weights - Requested pulm consult, Dr. Saxena - Cardiology consulted, Dr. Ramírez Transaminemia likely 2/2 hepatic congestion vs ischemia (poor perfusion) - Downtrending - Viral hep panel pending Hypercalcemia likely 2/2 dehydration - Resolved - Hold fluids at this time 2/2 possible CHF Exacerbation History of CHF - Aspirin, BB, Statin History of Hypertension - BP relatively low; discontinued IV lasix as above - Continue home Metoprolol Succinate 50 bid; patient has not yet gotten valsartan - Hold Hydralazine patient is normotensive History of Diabetes - Insulin sliding scale med - Started Levimir 10u HS - Recent A1c on 04/13 was 8.6% History of Anxiety/Depression - Resume home Wellbutrin, Xanax, Zoloft History of Chronic back pain - Resume home Gabapentin, Cyclobenzaprine, Voltaren, Naproxen Prophylaxis: Protonix, Heparin Heart Healthy, Moderate CHO Diet Patient discussed and plan reviewed with attending Dr. Wilson <Darlyn Wilson - Last Filed: 05/11/17 16:22> Objective - Vital Signs/Intake and Output Vital Signs (last 24 hours): Temp Pulse Resp BP Pulse Ox 97.6 F 71 18 112/60 97 05/11/17 11:57 05/11/17 14:00 05/11/17 11:57 05/11/17 11:57 05/11/17 06:00 Intake and Output: 05/11/17 05/11/17 06:59 18:59 Intake Total 300 Output Total 550 Balance -250 - Medications Medications: Current Medications Alprazolam (Xanax) 0.5 mg PO DAILY PRN; Protocol PRN Reason: Anxiety Last Admin: 05/10/17 23:29 Dose: 0.5 mg Aspirin (Aspirin Chewable) 81 mg PO DAILY [facility] Last Admin: 05/11/17 10:03 Dose: 81 mg Atorvastatin Calcium (Lipitor) 20 mg PO HS [facility] Last Admin: 05/10/17 22:15 Dose: 20 mg Benzocaine/Menthol (Cepacol Sore Throat) 1 yoko MM BID PRN PRN Reason: Sore Throat Bupropion HCl (Wellbutrin Sr 150 Mg) 150 mg PO DAILY [facility] Last Admin: 05/11/17 10:02 Dose: 150 mg Cyclobenzaprine HCl (Flexeril) 10 mg PO TID PRN PRN Reason: Muscle spasm Gabapentin (Neurontin) 600 mg PO QID [facility] PRN Reason: Protocol Last Admin: 05/11/17 14:03 Dose: 600 mg Heparin Sodium (Porcine) (Heparin) 5,000 units SC Q12 [facility] PRN Reason: Protocol Last Admin: 05/11/17 10:01 Dose: 5,000 units Insulin Detemir (Levemir) 10 unit SC HS [facility] Insulin Human Regular (Humulin R Med) 0 units SC ACHS [facility] PRN Reason: Protocol Last Admin: 05/11/17 11:38 Dose: 5 units Metoprolol Succinate (Toprol Xl) 50 mg PO BID [facility] Last Admin: 05/11/17 10:02 Dose: 50 mg (Diclofenac Sodium [ Voltaren] 100 Gm) ( Home Med) 100 gm TP QID [facility] (Valsartan [Diovan] (25 Mg)) 25 mg PO DAILY [facility] (Vortioxetine Hydrobromide [ Trintellix] 10 Mg) (Home Med) 10 mg PO DAILY [facility] Pantoprazole Sodium (Protonix Ec Tab) 40 mg PO DAILY [facility] Last Admin: 05/11/17 10:03 Dose: 40 mg Potassium Chloride (K-Dur 20 Meq Er Tab) 20 meq PO DAILY [facility] Last Admin: 05/11/17 10:02 Dose: 20 meq Sertraline HCl (Zoloft) 100 mg PO DAILY [facility] Last Admin: 05/11/17 10:03 Dose: 100 mg - Labs Labs: 05/11/17 06:00 05/11/17 06:00 PT 11.8 SECONDS (9.4-12.5) 05/10/17 15:45 INR 1.03 (0.93-1.08) 05/10/17 15:45 APTT 28.9 Seconds (25.1-36.5) 05/10/17 15:45 Attending/Attestation - Attestation I have personally seen and examined this patient.: Yes I have fully participated in the care of the patient.: Yes I have reviewed all pertinent clinical information, including history, physical exam and plan: Yes Notes (Text): 05/11/17 16:10 56 year old male with past medical history of diastolic CHF, COPD, diabetes, and depression who presented with complaint of shortness of breath, lower extremity edema and chest pain. CXR shows some congestion and he was started on iv lasix. Serial cardiac enzymes were negative and ACS was ruled out. LE dopplers were negative for DVT. CT chest was negative for PE; showed nonspecific nonspecific groundglass opacities and indeterminate left adrenal gland lesion. Recent echocardiogram from last month was reviewed which showed diastolic dysfunction and moderate pulmonary hypertension. He also reports he had a negative stress test few months prior. He was seen by cardiology who discontinued lasix. Pulmonary evaluation is requested. Transaminitis possibly secondary to hepatic congestion vs fatty liver. LFTs are improving. Will continue to monitor. Hepatitis panel is pending. Darlyn Wilson MD Hospitalist.
--- NOTE | 2017-05-11 16:56 | CP.PCM.CON ---
History of Present Illness - History of Present Illness History of Present Illness: PULMONARY CONSULT NOTE HPI Patient is 56yo with PMHx of HTN, COPD, DM, Anxiety, former smoker 45pk years, depression, IBS, morbid obesity, presents with 3-4 day history SOB and mild L sided chest pain. Pt reports he has SOB on exertion associated with L sided "burning chest pain", and 20lb weight gain since last hospitalization. Pt denies fever, chills, cough, palpitations, BYRD dizziness, orthopnea. No other constitutional symptoms. Pt denies ever having Right or Left heart cath. ECHO done last admission, EF >55%. Pt admitted to floor, given IV Lasix and IV steroid, reports his SOB is somewhat improved. Past medical history:as Above Surgical history: Tonsillectomy Family history: CHF, DVT Social history: Former smoker, quit 14 years ago, 45pk years. Denies alcohol or illicit drug use Allergies: Penicillin Medications: as per [facility] Review of Systems - Review of Systems Review of Systems: PER HPI Past Patient History - Infectious Disease Hx of Infectious Diseases: None - Tetanus Immunizations Tetanus Immunization: Unknown - Past Medical History & Family History Past Medical History?: Yes - Past Social History Smoking Status: Former Smoker - CARDIAC Hx Cardiac Disorders: Yes Hx Congestive Heart Failure: Yes Hx Hypercholesterolemia: Yes Hx Hypertension: Yes - PULMONARY Hx Respiratory Disorders: Yes Hx Chronic Obstructive Pulmonary Disease (COPD): Yes Hx Sleep Apnea: Yes (no cpap at home) - NEUROLOGICAL Hx Neurological Disorder: No - HEENT Hx HEENT Problems: Yes (wears glasses) Hx Cataracts: Yes Hx Glaucoma: Yes (Left > Right) - RENAL Hx Chronic Kidney Disease: No - ENDOCRINE/METABOLIC Hx Endocrine Disorders: Yes Hx Diabetes Mellitus Type 2: Yes - HEMATOLOGICAL/ONCOLOGICAL Hx Blood Disorders: Yes Hx Anemia: Yes (borderline) - INTEGUMENTARY Hx Dermatological Problems: No Other/Comment: BOTH LEGS WITH CHRONIC VASCULAR, AND DIABETIC SWELLING. NO OPEN ULCERATIONS AT PRESENT. LEFT FACIAL FADING ECCYMOSIS ABOVE LIP AND CHEEK - MUSCULOSKELETAL/RHEUMATOLOGICAL Hx Musculoskeletal Disorders: Yes Hx Arthritis: Yes Hx Falls: Yes Hx Unsteady Gait: No - GASTROINTESTINAL Hx Gastrointestinal Disorders: Yes Hx Gastroesophageal Reflux: Yes - GENITOURINARY/GYNECOLOGICAL Hx Genitourinary Disorders: No - PSYCHIATRIC Hx Psychophysiologic Disorder: Yes Hx Anxiety: Yes Hx Depression: Yes Hx Substance Use: No - SURGICAL HISTORY Hx Surgeries: Yes (tonsillectomy,sigmoid colon polyp removed) - ANESTHESIA Hx Anesthesia Reactions: No Hx Malignant Hyperthermia: No Meds Allergies/Adverse Reactions: Allergies Allergy/AdvReac Type Severity Reaction Status Date / Time oregano Allergy NAUSEA Verified 05/11/17 02:28 Penicillins Allergy ANAPHYLAXIS Verified 02/03/17 13:25 - Medications Medications: Current Medications Alprazolam (Xanax) 0.5 mg PO DAILY PRN; Protocol PRN Reason: Anxiety Last Admin: 05/10/17 23:29 Dose: 0.5 mg Aspirin (Aspirin Chewable) 81 mg PO DAILY [facility] Last Admin: 05/11/17 10:03 Dose: 81 mg Atorvastatin Calcium (Lipitor) 20 mg PO HS [facility] Last Admin: 05/10/17 22:15 Dose: 20 mg Benzocaine/Menthol (Cepacol Sore Throat) 1 yoko MM BID PRN PRN Reason: Sore Throat Bupropion HCl (Wellbutrin Sr 150 Mg) 150 mg PO DAILY [facility] Last Admin: 05/11/17 10:02 Dose: 150 mg Cyclobenzaprine HCl (Flexeril) 10 mg PO TID PRN PRN Reason: Muscle spasm Gabapentin (Neurontin) 600 mg PO QID [facility] PRN Reason: Protocol Last Admin: 05/11/17 14:03 Dose: 600 mg Heparin Sodium (Porcine) (Heparin) 5,000 units SC Q12 [facility] PRN Reason: Protocol Last Admin: 05/11/17 10:01 Dose: 5,000 units Insulin Detemir (Levemir) 10 unit SC HS [facility] Insulin Human Regular (Humulin R Med) 0 units SC ACHS [facility] PRN Reason: Protocol Last Admin: 05/11/17 16:31 Dose: 5 units Metoprolol Succinate (Toprol Xl) 50 mg PO BID [facility] Last Admin: 05/11/17 10:02 Dose: 50 mg (Diclofenac Sodium [ Voltaren] 100 Gm) ( Home Med) 100 gm TP QID [facility] (Valsartan [Diovan] (25 Mg)) 25 mg PO DAILY [facility] (Vortioxetine Hydrobromide [ Trintellix] 10 Mg) (Home Med) 10 mg PO DAILY [facility] Pantoprazole Sodium (Protonix Ec Tab) 40 mg PO DAILY [facility] Last Admin: 05/11/17 10:03 Dose: 40 mg Potassium Chloride (K-Dur 20 Meq Er Tab) 20 meq PO DAILY [facility] Last Admin: 05/11/17 10:02 Dose: 20 meq Sertraline HCl (Zoloft) 100 mg PO DAILY [facility] Last Admin: 05/11/17 10:03 Dose: 100 mg Physical Exam - Constitutional Appears: Non-toxic, No Acute Distress - Head Exam Head Exam: NORMAL INSPECTION - ENT Exam ENT Exam: Mucous Membranes Moist - Respiratory Exam Respiratory Exam: Decreased Breath Sounds, NORMAL BREATHING PATTERN - Cardiovascular Exam Cardiovascular Exam: REGULAR RHYTHM, +S1, +S2 - GI/Abdominal Exam GI & Abdominal Exam: Normal Bowel Sounds, Soft - Extremities Exam Extremities exam: Positive for: pedal edema - Neurological Exam Neurological exam: Alert, Oriented x3 - Psychiatric Exam Psychiatric exam: Normal Mood Results - Vital Signs Recent Vital Signs: Last Vital Signs Temp 97.6 F 05/11/17 11:57 Pulse 71 05/11/17 14:00 Resp 18 05/11/17 11:57 BP 112/60 05/11/17 11:57 Pulse Ox 97 05/11/17 06:00 - Labs Result Diagrams: 05/11/17 06:00 05/11/17 06:00 Labs: Laboratory Results - last 24 hr 05/10/17 05/11/17 05/11/17 21:53 06:00 06:00 WBC 9.0 D RBC 4.11 Hgb 11.7 L Hct 36.1 L MCV 87.8 MCH 28.5 MCHC 32.4 RDW 14.0 Plt Count 257 MPV 10.0 Sodium 145 Potassium 3.7 Chloride 101 Carbon Dioxide 30 Anion Gap 17 BUN 50 H Creatinine 1.3 Est GFR ( Amer) > 60 Est GFR (Non-Af Amer) 57 POC Glucose (mg/dL) 121 H Random Glucose 253 H Calcium 10.1 Phosphorus 4.8 H Magnesium 2.0 Total Bilirubin 0.6 AST 54 ALT 99 H Alkaline Phosphatase 93 Lactate Dehydrogenase Total Creatine Kinase Troponin I Total Protein 7.6 Albumin 4.2 Globulin 3.4 Albumin/Globulin Ratio 1.2 Procalcitonin 05/11/17 05/11/17 05/11/17 06:30 06:30 07:10 WBC RBC Hgb Hct MCV MCH MCHC RDW Plt Count MPV Sodium Potassium Chloride Carbon Dioxide Anion Gap BUN Creatinine Est GFR ( Amer) Est GFR (Non-Af Amer) POC Glucose (mg/dL) 248 H Random Glucose Calcium Phosphorus Magnesium Total Bilirubin AST ALT Alkaline Phosphatase Lactate Dehydrogenase 590 Total Creatine Kinase 67 Troponin I < 0.01 Total Protein Albumin Globulin Albumin/Globulin Ratio Procalcitonin 0.06 L 05/11/17 05/11/17 05/11/17 11:08 13:40 15:57 WBC RBC Hgb Hct MCV MCH MCHC RDW Plt Count MPV Sodium Potassium Chloride Carbon Dioxide Anion Gap BUN Creatinine Est GFR ( Amer) Est GFR (Non-Af Amer) POC Glucose (mg/dL) 297 H 286 H Random Glucose Calcium Phosphorus Magnesium Total Bilirubin AST ALT Alkaline Phosphatase Lactate Dehydrogenase 625 Total Creatine Kinase 71 Troponin I < 0.01 Total Protein Albumin Globulin Albumin/Globulin Ratio Procalcitonin - Imaging and Cardiology CT scan - chest Status: Image reviewed by me, Report reviewed by me Assessment & Plan - Assessment and Plan (Free Text) Assessment: 56yo male a/w SOB SOB COPD CHF Ground glass opacities - currently afebrile, HD stable, comfortable in NAD, on room air, reports SOB is "30-40%" improved - on exam has decreased breath sounds at the bases, no wheezing, pedal edema - ECHO reviewed from previous admission, has mild Pulm HTN PASP 41, EF>55% - PACHECO on exertion likely multifactorial, patient is morbidly obese, has likely COPD, diastolic CHF, possibly CAD - Elevated right sided pressures, PASP 41 likely combination from COPD, untreated STEVENSON, ?diastolic CHF - minimal round glass opacities on CT chest, non specific - would recommend FULL PFTs, would start Prednisone 40mg daily x 5 days, Lasix 40mg PO BID - would discuss with cardiology about possible Right heart cath and left heart cath - will need sleep study as outpatient - GI ppx, DVT ppx
[2017-05-11] MEDS ORDERED: Insulin Detemir 100 units/ml Vial (Levemir) SC SCH (22:00)
--- NOTE | 2017-05-12 00:54 | CON ---
DATE: CARDIOLOGY CONSULTATION: REASON FOR CONSULTATION: Congestive heart failure. HISTORY OF PRESENT ILLNESS: The patient is a 56-year-old morbidly obese male, who has a history of congestive heart failure, being followed by a private supervisor pleating in [place]. The patient is unaware of any history of coronary artery disease. He did present because of shortness of breath, cough and leg swelling as well as burning sensation in the left inframammary area. SOCIAL HISTORY: The patient is a nonsmoker, nondrinker. MEDICATIONS: 25 mg once a day, Voltaren 100 mg t.i.d., aspirin 81 mg once a day, Flexeril 10 mg t.i.d., heparin 5000 units subcutaneous twice a day, K-Dur 20 mEq daily, Lasix 40 mg intravenous twice a day, Lipitor 20 mg once a day, Protonix 40 mg p.o. once a day, Toprol XL 50 mg twice a day, Wellbutrin 150 mg daily, Zoloft 100 mg daily. REVIEW OF SYSTEMS: No nausea or vomiting. No fever or chills. PHYSICAL EXAMINATION: GENERAL: The patient is a middle-aged male who does not appear to be in acute distress. VITAL SIGNS: Blood pressure 112/60, heart rate 65, temperature 97.6, respirations 18. HEENT: Normocephalic. CHEST: Bibasilar rhonchi. HEART: S1 and S2 regular. ABDOMEN: Soft. EXTREMITIES: 1+ pitting edema. DIAGNOSTIC DATA: Chest x-ray revealed cardiomegaly with mild CHF. Venous Doppler of lower extremities, no evidence of DVT in the visualized segments. Chest CT angio, no definite evidence of pulmonary embolism, ground glass opacities nonspecific, consider inflammatory or infectious etiology. Adrenal lesion indeterminate. EKG revealed normal sinus rhythm with moderate voltage criteria for LVH. Echocardiographic study performed last month revealed mild LVH with normal ejection fraction, moderate pulmonary hypertension. Hemoglobin and hematocrit 11.7 and 36.1, white count and platelet count are within normal limits. Chemistries within normal limits except for glucose of 253. BUN of 50. Two sets of troponins are negative. PT, PTT and INR are within normal limits. ASSESSMENT: 1. Consider diastolic heart failure. 2. Consider right heart failure secondary to pulmonary hypertension. 3. Adrenal lesion. RECOMMENDATIONS: Continue current aspirin, subcutaneous heparin, IV Lasix, K-Dur, Lipitor, and Toprol XL. Consider pulmonary function test to rule out presence of interstitial lung disease. I will obtain rheumatoid factor as well as connective tissue disease markers. Johnny Mar MD
[2017-05-12] MEDS ORDERED: Insulin Regular 1 UNITS/0.01 ML ML SC ONE ×3 (01:59→16:47)
[2017-05-12 06:56] LABS: HEMOGLOBIN 12.2 g/dL (14.0-18.0); MEAN CELL VOLUME 87.9 fl (80.0-105.0); MEAN CORPUSCULAR HEMOGLOBIN 28.5 pg (25.0-35.0); MEAN CORPUSCULAR HGB CONC 32.4 g/dl (31.0-37.0); MEAN PLATELET VOLUME 9.8 fl (7.0-11.0); RBC 4.28 10^6/uL (3.5-6.1); RED CELL DISTRIBUTION WIDTH 13.8 % (11.5-14.5); WHITE BLOOD COUNT 6.9 10^3/ul (4.5-11.0)
[2017-05-12 07:48] LABS: ALB/GLOB RATIO 1.2 (1.1-1.8); ALBUMIN 4.1 g/dL (3.0-4.8); ALT/SGPT 113 U/L (7-56); AST/SGOT 70 U/L (17-59); BLOOD UREA NITROGEN 46 mg/dL (7-21); CALCIUM 10.2 mg/dL (8.4-10.5); GFR AFRICAN-AMERICAN > 60; GFR NON-AFRICAN AMERICAN > 60
[2017-05-12] MEDS: Insulin Reg-MEDIUM-Coverage SC SCH (08:09)
[2017-05-12 08:40] LABS: HEPATITIS B SURFACE AG Negative (NEGATIVE)
[2017-05-12 08:50] LABS: HEPATITIS A IGM NEGATIVE (NEGATIVE); HEPATITIS B CORE AB NEGATIVE (NEGATIVE)
[2017-05-12 08:58] LABS: HEPATITIS C ANTIBODY NEGATIVE (NEGATIVE)
[2017-05-12] MEDS: Potassium Chloride 20 mEq ER Tab PO SCH (09:38)
[2017-05-12] MEDS: Metoprolol Succinate 50 mg XL Tab PO SCH ×2 (09:39→17:14)
[2017-05-12] MEDS: buPROPion SR 150 MG TABLET PO SCH (09:39)
[2017-05-12] MEDS: Pantoprazole 40 mg EC Tab PO SCH (09:39)
--- NOTE | 2017-05-12 16:05 | NM ---
COMPARISON: CT 05/10/2017 TECHNIQUE: 36.3 mCi technetium 99-m DTPA inhaled 3.2 mCI technetium 99-m MAA administered intravenously. FINDINGS: VENTILATION COMPONENT: Normal. PERFUSION COMPONENT: Normal. IMPRESSION: Lowprobability ventilation perfusion scan for pulmonary embolism.
[2017-05-12] MEDS ORDERED: Insulin Lispro (HUMAlog) HIGH Coverage SC SCH (16:30)
--- NOTE | 2017-05-12 16:37 | CP.PCM.PN ---
<Paula Lee - Last Filed: 05/12/17 16:31> Subjective - Date & Time of Evaluation Date of Evaluation: 05/12/17 Time of Evaluation: 07:30 - Subjective Subjective: Paula Lee DO PGY1 - IM Progress Note Patient seen and examined at bedside. Per nursing staff, no acute events overnight. Patient reports continued slight improvement in his shortness of breath, continues to have dyspnea on exertion. Patient reports a history of sleep apnea, but he does not use the CPAP machine he was given. Patient denies any chest pain, cough, nausea, vomiting, diarrhea, constipation. Patient has not yet walked around, beyond going to the bathroom. Objective - Vital Signs/Intake and Output Vital Signs (last 24 hours): Temp Pulse Resp BP Pulse Ox 97.6 F 73 20 158/63 H 95 05/12/17 11:51 05/12/17 14:00 05/12/17 11:51 05/12/17 11:51 05/12/17 06:00 Intake and Output: 05/12/17 05/12/17 06:59 18:59 Intake Total 480 Output Total 700 Balance -220 - Medications Medications: Current Medications Alprazolam (Xanax) 0.5 mg PO DAILY PRN; Protocol PRN Reason: Anxiety Last Admin: 05/10/17 23:29 Dose: 0.5 mg Aspirin (Aspirin Chewable) 81 mg PO DAILY [facility] Last Admin: 05/12/17 09:39 Dose: 81 mg Atorvastatin Calcium (Lipitor) 20 mg PO HS [facility] Last Admin: 05/11/17 21:15 Dose: 20 mg Benzocaine/Menthol (Cepacol Sore Throat) 1 yoko MM BID PRN PRN Reason: Sore Throat Bupropion HCl (Wellbutrin Sr 150 Mg) 150 mg PO DAILY [facility] Last Admin: 05/12/17 09:39 Dose: 150 mg Cyclobenzaprine HCl (Flexeril) 10 mg PO TID PRN PRN Reason: Muscle spasm Furosemide (Lasix) 40 mg PO DAILY [facility] Gabapentin (Neurontin) 600 mg PO QID IVÁN PRN Reason: Protocol Last Admin: 05/12/17 13:59 Dose: 600 mg Heparin Sodium (Porcine) (Heparin) 5,000 units SC Q12 IVÁN PRN Reason: Protocol Last Admin: 05/12/17 09:41 Dose: 5,000 units Insulin Detemir (Levemir) 15 unit SC [facility] Insulin Human Lispro (Humalog High) 0 units SC [facility] PRN Reason: Protocol Insulin Human Regular (Humulin R) 10 units SC [facility] Losartan Potassium (Cozaar) 25 mg PO DAILY [facility] Last Admin: 05/12/17 09:41 Dose: 25 mg Metoprolol Succinate (Toprol Xl) 50 mg PO BID [facility] Last Admin: 05/12/17 09:39 Dose: 50 mg Diclofenac Sodium [ (Voltaren] 1% Gel) 0 gm TP QID [facility] Last Admin: 05/12/17 15:20 Dose: Not Given Vortioxetine Hydrobromide [ Trintellix] 10 Mg 10 mg PO DAILY [facility] Last Admin: 05/12/17 15:21 Dose: Not Given Pantoprazole Sodium (Protonix Ec Tab) 40 mg PO DAILY [facility] Last Admin: 05/12/17 09:39 Dose: 40 mg Potassium Chloride (K-Dur 20 Meq Er Tab) 20 meq PO DAILY [facility] Last Admin: 05/12/17 09:38 Dose: 20 meq Prednisone (Prednisone Tab) 40 mg PO DAILY [facility] Last Admin: 05/12/17 09:38 Dose: 40 mg Sertraline HCl (Zoloft) 100 mg PO DAILY [facility] Last Admin: 05/12/17 09:38 Dose: 100 mg - Labs Labs: PT 11.8 SECONDS (9.4-12.5) 05/10/17 15:45 INR 1.03 (0.93-1.08) 05/10/17 15:45 APTT 28.9 Seconds (25.1-36.5) 05/10/17 15:45 - Additional Findings Additional findings: - Constitutional Appears: Non-toxic, No Acute Distress, Other (Obese) - Head Exam Head Exam: ATRAUMATIC, NORMOCEPHALIC - Eye Exam Eye Exam: EOMI, Normal appearance, PERRL - ENT Exam ENT Exam: Mucous Membranes Moist - Neck Exam Neck Exam: Full ROM, Normal Inspection - Respiratory Exam Respiratory Exam: Decreased Breath Sounds, NORMAL BREATHING PATTERN. absent: Rhonchi, Wheezes, Respiratory Distress, Stridor Additional comments: Faint RLL rales. Decreased breath sounds. - Cardiovascular Exam Cardiovascular Exam: RRR, +S1, +S2. absent: Bradycardia, Tachycardia - GI/Abdominal Exam GI & Abdominal Exam: Soft, Normal Bowel Sounds. absent: Tenderness - Extremities Exam Extremities Exam: Pedal Edema (1+, pitting, to knees). absent: Calf Tenderness - Neurological Exam Neurological Exam: Alert, Awake, Oriented x3 - Psychiatric Exam Psychiatric exam: Normal Affect, Normal Mood - Skin Skin Exam: Dry, Intact, Normal Color Assessment and Plan - Assessment and Plan (Free Text) Assessment: 56 year old male with past medical history of hypertension, COPD, diabetes, anxiety, depression, back pain, and IBS presents with shortness of breath and mild chest pain. Plan Shortness of Breath likely 2/2 CHF exacerbation vs COPD vs chronic PE vs restrictive, insterstitial lung disease vs STEVENSON - Patient has history of mild-moderate pulm HTN, as seen on echocardiogram done 04/14 - IV lasix discontinued by cardio; patient has mild pedal edema today; resume lasix 40mg PO BID - Ordered V/Q scan to r/o chronic PE - Ordered PFTs to assess pulmonary status; to be done in AM - Patient did not tolerate 6 minute walk test, desaturated to 87% on room air and patient was symptomatic after one minute; patient will require evaluation for home oxygen - Will discuss with cardio to consider complete heart cath to rule out ischemic heart disease - Strict I's and O's, Daily weights - Requested pulm consult, Dr. Saxena - Cardiology consulted, Dr. Ramírez Transaminemia likely 2/2 hepatic congestion vs ischemia (poor perfusion) - Downtrending - Viral hep panel pending History of CHF - Aspirin, BB, Statin History of Hypertension - BP relatively low; discontinued IV lasix as above - Continue home Metoprolol Succinate 50 bid - Losartan 25mg PO daily - Hold Hydralazine patient is normotensive History of Diabetes - Patient takes Humilin R U-500, 300u ACB and 200u HS at home - Insulin sliding scale med - Increased levimir to 10u AMHS - Start Regular insulin 10u AC - Recent A1c on 04/13 was 8.6% History of Anxiety/Depression - Resume home Wellbutrin, Xanax, Zoloft History of Chronic back pain - Resume home Gabapentin, Cyclobenzaprine, Voltaren, Naproxen Prophylaxis: Protonix, Heparin Heart Healthy, Moderate CHO Diet Patient discussed and plan reviewed with attending Dr. Lake <Landy Lake - Last Filed: 05/15/17 15:25> Objective - Vital Signs/Intake and Output Vital Signs (last 24 hours): Temp Pulse Resp BP Pulse Ox 97.8 F 61 16 123/62 92 L 05/15/17 06:00 18 09:30 05/15/17 06:00 05/15/17 09:30 05/15/17 06:00 Intake and Output: 05/15/17 05/15/17 06:59 18:59 Intake Total 840 780 Output Total 700 Balance 140 780 - Medications Medications: Current Medications Albuterol/Ipratropium (Duoneb 3 Mg/0.5 Mg (3 Ml) Ud) 3 ml IH TIDRESP [facility] Last Admin: 05/15/17 14:08 Dose: 3 ml Alprazolam (Xanax) 0.5 mg PO DAILY PRN; Protocol PRN Reason: Anxiety Last Admin: 05/14/17 22:25 Dose: 0.5 mg Aspirin (Aspirin Chewable) 81 mg PO DAILY [facility] Last Admin: 05/15/17 09:31 Dose: 81 mg Atorvastatin Calcium (Lipitor) 20 mg PO HS [facility] Last Admin: 05/14/17 22:16 Dose: 20 mg Benzocaine/Menthol (Cepacol Sore Throat) 1 yoko MM BID PRN PRN Reason: Sore Throat Bupropion HCl (Wellbutrin Sr 150 Mg) 150 mg PO DAILY [facility] Last Admin: 05/15/17 09:30 Dose: 150 mg Cyclobenzaprine HCl (Flexeril) 10 mg PO TID PRN PRN Reason: Muscle spasm Furosemide (Lasix) 40 mg PO BID [facility] Last Admin: 05/15/17 09:30 Dose: 40 mg Gabapentin (Neurontin) 600 mg PO QID [facility] PRN Reason: Protocol Last Admin: 05/15/17 14:01 Dose: 600 mg Heparin Sodium (Porcine) (Heparin) 5,000 units SC Q12 [facility] PRN Reason: Protocol Last Admin: 05/15/17 09:31 Dose: 5,000 units Insulin Detemir (Levemir) 20 unit SC [facility] Last Admin: 05/15/17 09:30 Dose: 20 unit Insulin Human Lispro (Humalog Med) 0 units SC [facility]S [facility] PRN Reason: Protocol Last Admin: 05/15/17 12:07 Dose: 5 units Insulin Human Regular (Humulin R) 15 units SC AC [facility] Last Admin: 05/15/17 12:08 Dose: 15 units Losartan Potassium (Cozaar) 25 mg PO DAILY [facility] Last Admin: 05/15/17 09:25 Dose: 25 mg Metoprolol Succinate (Toprol Xl) 50 mg PO BID [facility] Last Admin: 05/15/17 09:30 Dose: 50 mg Diclofenac Sodium [ (Voltaren] 1% Gel) 0 gm TP QID [facility] Last Admin: 05/15/17 09:33 Dose: Not Given Vortioxetine Hydrobromide [ Trintellix] 10 Mg 10 mg PO DAILY [facility] Last Admin: 05/15/17 09:33 Dose: Not Given Pantoprazole Sodium (Protonix Ec Tab) 40 mg PO DAILY [facility] Last Admin: 05/15/17 09:31 Dose: 40 mg Potassium Chloride (K-Dur 20 Meq Er Tab) 20 meq PO DAILY [facility] Last Admin: 05/15/17 09:31 Dose: 20 meq Prednisone (Prednisone Tab) 40 mg PO DAILY [facility] Last Admin: 05/15/17 09:31 Dose: 40 mg Sertraline HCl (Zoloft) 100 mg PO DAILY [facility] Last Admin: 05/15/17 09:30 Dose: 100 mg - Labs Labs: 05/15/17 06:30 05/15/17 06:30 PT 11.8 SECONDS (9.4-12.5) 05/10/17 15:45 INR 1.03 (0.93-1.08) 05/10/17 15:45 APTT 28.9 Seconds (25.1-36.5) 05/10/17 15:45 Attending/Attestation - Attestation I have personally seen and examined this patient.: Yes I have fully participated in the care of the patient.: Yes I have reviewed all pertinent clinical information, including history, physical exam and plan: Yes Notes (Text): 05/15/17 15:19 Medical record note made by the resident after discussion with my direction and input after the patient was personally seen and examined by me. I have reviewed the chart and agree that the record accurately reflects by personal performance of the history, physical exam, data review, and medical decision-making, in the course for the patient. I have also personally directed the plan of care 56 year old male with past medical history of diastolic CHF, COPD, diabetes, was admitted with shortness of breath , improved with Neb/Steroid and IV lasix. V/Q scan is negative for Pulmonary embolism.Patient has mild Pulmonary HTN, etiology could be hypoxia.Patient had 6 minutes walk test and drop oxygen saturation to 87%, will need home oxygen prior to discharge.
[2017-05-12] MEDS: Insulin Regular 1 UNITS/0.01 ML ML SC SCH (17:14)
--- NOTE | 2017-05-12 18:23 | PN ---
DATE: SUBJECTIVE: The patient denies any chest pain. PHYSICAL EXAMINATION: VITAL SIGNS: Blood pressure 158/63, heart rate 68, temperature 97.6, and respirations 20. HEENT: Normocephalic. CHEST: Minimal rhonchi. HEART: S1 and S2 regular. EXTREMITIES: A 1+ pitting edema. LABORATORY DATA: SMA-7 is within normal limits except for glucose of 341 and BUN of 46. Liver enzymes are mildly elevated. ASSESSMENT: 1. Rule out interstitial lung disease. 2. History of chronic obstructive pulmonary disease. 3. pulmonary hypertension. 4. Prerenal azotemia. RECOMMENDATIONS: Continue current aspirin, Cozaar, subcutaneous heparin, K-Dur, Lipitor, and Toprol-XL. Hepatitis profile is negative. Rheumatoid factor results are still pending. Johnny Mar MD
[2017-05-12] MEDS: Insulin Detemir 100 units/ml Vial (Levemir) SC SCH (21:56)
[2017-05-12] MEDS: Insulin Lispro (humaLOG) MEDIUM Coverage SC SCH (21:56)
[2017-05-12] MEDS ORDERED: Insulin Detemir 100 units/ml Vial (Levemir) SC SCH (22:00)
[2017-05-13 06:29] LABS: HEMOGLOBIN 11.4 g/dL (14.0-18.0); MEAN CELL VOLUME 86.6 fl (80.0-105.0); MEAN CORPUSCULAR HEMOGLOBIN 28.4 pg (25.0-35.0); MEAN CORPUSCULAR HGB CONC 32.8 g/dl (31.0-37.0); MEAN PLATELET VOLUME 9.9 fl (7.0-11.0); RBC 4.02 10^6/uL (3.5-6.1); RED CELL DISTRIBUTION WIDTH 13.3 % (11.5-14.5); WHITE BLOOD COUNT 8.3 10^3/ul (4.5-11.0)
[2017-05-13 07:31] LABS: ALB/GLOB RATIO 1.2 (1.1-1.8); ALBUMIN 3.8 g/dL (3.0-4.8); ALT/SGPT 95 U/L (7-56); AST/SGOT 43 U/L (17-59); BLOOD UREA NITROGEN 35 mg/dL (7-21); CALCIUM 9.8 mg/dL (8.4-10.5); GFR AFRICAN-AMERICAN > 60; GFR NON-AFRICAN AMERICAN > 60
[2017-05-13] MEDS: Insulin Lispro (humaLOG) MEDIUM Coverage SC SCH ×4 (08:09→22:23)
[2017-05-13] MEDS: Insulin Regular 1 UNITS/0.01 ML ML SC SCH ×3 (08:10→17:52)
--- NOTE | 2017-05-13 09:52 | CARD ---
APPROVED REPORT EKG Measurement Heart [id number] <Conclusion> Sinus bradycardia Otherwise normal ECG
[2017-05-13] MEDS: buPROPion SR 150 MG TABLET PO SCH (12:02)
[2017-05-13] MEDS: Potassium Chloride 20 mEq ER Tab PO SCH (12:03)
[2017-05-13] MEDS: Pantoprazole 40 mg EC Tab PO SCH (12:04)
[2017-05-13] MEDS: Metoprolol Succinate 50 mg XL Tab PO SCH ×2 (12:04→17:47)
[2017-05-13] MEDS: Insulin Detemir 100 units/ml Vial (Levemir) SC SCH ×2 (12:06→22:23)
--- NOTE | 2017-05-13 12:17 | RAD ---
HISTORY: sob COMPARISON: 05/10/2017 TECHNIQUE: Chest PA and lateral FINDINGS: LUNGS: No active pulmonary disease. PLEURA: No significant pleural effusion identified. No pneumothorax apparent. CARDIOVASCULAR: Normal. OSSEOUS STRUCTURES: No significant abnormalities. VISUALIZED UPPER ABDOMEN: Normal. OTHER FINDINGS: None. IMPRESSION: No active disease.
--- NOTE | 2017-05-13 16:48 | CP.PCM.PN ---
<Paula Lee - Last Filed: 05/13/17 16:41> Subjective - Date & Time of Evaluation Date of Evaluation: 05/13/17 Time of Evaluation: 07:30 - Subjective Subjective: Paula Lee DO PGY1 - IM Progress Note Patient seen and examined at bedside. Per nursing staff, no acute events overnight. Patient still has some shortness of breath, especially with ambulation. Patient denies any chest pain, cough, nausea, vomiting, diarrhea, constipation. Objective - Vital Signs/Intake and Output Vital Signs (last 24 hours): Temp Pulse Resp BP Pulse Ox 98.1 F 62 17 128/61 96 05/13/17 12:00 05/13/17 14:00 05/13/17 12:00 05/13/17 12:04 05/13/17 12:00 Intake and Output: 05/13/17 05/13/17 06:59 18:59 Intake Total 660 Output Total 2050 Balance -1390 - Medications Medications: Current Medications Alprazolam (Xanax) 0.5 mg PO DAILY PRN; Protocol PRN Reason: Anxiety Last Admin: 05/12/17 21:54 Dose: 0.5 mg Aspirin (Aspirin Chewable) 81 mg PO DAILY [facility] Last Admin: 05/13/17 12:04 Dose: 81 mg Atorvastatin Calcium (Lipitor) 20 mg PO HS [facility] Last Admin: 05/12/17 21:55 Dose: 20 mg Benzocaine/Menthol (Cepacol Sore Throat) 1 yoko MM BID PRN PRN Reason: Sore Throat Bupropion HCl (Wellbutrin Sr 150 Mg) 150 mg PO DAILY [facility] Last Admin: 05/13/17 12:02 Dose: 150 mg Cyclobenzaprine HCl (Flexeril) 10 mg PO TID PRN PRN Reason: Muscle spasm Furosemide (Lasix) 40 mg PO BID [facility] Last Admin: 05/13/17 12:03 Dose: 40 mg Gabapentin (Neurontin) 600 mg PO QID [facility] PRN Reason: Protocol Last Admin: 05/13/17 15:26 Dose: 600 mg Heparin Sodium (Porcine) (Heparin) 5,000 units SC Q12 IVÁN PRN Reason: Protocol Last Admin: 05/13/17 12:05 Dose: 5,000 units Insulin Detemir (Levemir) 15 unit SC [facility] Last Admin: 05/13/17 12:06 Dose: 15 unit Insulin Human Lispro (Humalog Med) 0 units SC ACHS [facility] PRN Reason: Protocol Last Admin: 05/13/17 12:04 Dose: 7 units Insulin Human Regular (Humulin R) 10 units SC AC [facility] Last Admin: 05/13/17 12:06 Dose: 10 units Losartan Potassium (Cozaar) 25 mg PO DAILY [facility] Last Admin: 05/13/17 12:03 Dose: 25 mg Metoprolol Succinate (Toprol Xl) 50 mg PO BID [facility] Last Admin: 05/13/17 12:04 Dose: 50 mg Diclofenac Sodium [ (Voltaren] 1% Gel) 0 gm TP QID [facility] Last Admin: 05/13/17 15:17 Dose: Not Given Vortioxetine Hydrobromide [ Trintellix] 10 Mg 10 mg PO DAILY [facility] Last Admin: 05/13/17 12:08 Dose: Not Given Pantoprazole Sodium (Protonix Ec Tab) 40 mg PO DAILY [facility] Last Admin: 05/13/17 12:04 Dose: 40 mg Potassium Chloride (K-Dur 20 Meq Er Tab) 20 meq PO DAILY [facility] Last Admin: 05/13/17 12:03 Dose: 20 meq Prednisone (Prednisone Tab) 40 mg PO DAILY [facility] Last Admin: 05/12/17 09:38 Dose: 40 mg Sertraline HCl (Zoloft) 100 mg PO DAILY [facility] Last Admin: 05/13/17 12:03 Dose: 100 mg - Labs Labs: 05/13/17 05:30 05/13/17 05:30 PT 11.8 SECONDS (9.4-12.5) 05/10/17 15:45 INR 1.03 (0.93-1.08) 05/10/17 15:45 APTT 28.9 Seconds (25.1-36.5) 05/10/17 15:45 - Additional Findings Additional findings: - Constitutional Appears: Non-toxic, No Acute Distress, Other (Obese) - Head Exam Head Exam: ATRAUMATIC, NORMOCEPHALIC - Eye Exam Eye Exam: EOMI, Normal appearance, PERRL - ENT Exam ENT Exam: Mucous Membranes Moist - Neck Exam Neck Exam: Full ROM, Normal Inspection - Respiratory Exam Respiratory Exam: Decreased Breath Sounds, NORMAL BREATHING PATTERN. absent: Rhonchi, Rales, Wheezes, Respiratory Distress, Stridor - Cardiovascular Exam Cardiovascular Exam: RRR, +S1, +S2. absent: Bradycardia, Tachycardia - GI/Abdominal Exam GI & Abdominal Exam: Soft, Normal Bowel Sounds. absent: Tenderness - Extremities Exam Extremities Exam: Pedal Edema (1+, pitting, to knees). absent: Calf Tenderness - Neurological Exam Neurological Exam: Alert, Awake, Oriented x3 - Psychiatric Exam Psychiatric exam: Normal Affect, Normal Mood - Skin Skin Exam: Dry, Intact, Normal Color Assessment and Plan - Assessment and Plan (Free Text) Assessment: 56 year old male with PMH of hypertension, COPD, diabetes, anxiety, depression, back pain, and IBS presents with shortness of breath and mild chest pain. Plan Shortness of Breath likely 2/2 CHF exacerbation vs COPD vs chronic PE vs restrictive, insterstitial lung disease vs STEVENSON - Patient has history of mild-moderate pulm HTN, as seen on echocardiogram done 04/14 - Continue lasix 40mg PO BID - V/Q scan done yesterday, reported as low probability of PE; unlikely chronic PE - PFT complete this morning, show obstructive pattern, improved with bronchodilators; official read pending - Patient did not tolerate 6 minute walk test yesterday, desaturated to 87% on room air and patient was symptomatic after one minute; again patient did not tolerate ambulation on room air today, desaturated to 84% after about 180 feet. - Pending physical therapy assessment - Patient will require home O2 for COPD and hypoxemia - Requested pulm consult, Dr. Saxena - Cardiology consulted, Dr. Ramírez Transaminemia likely 2/2 hepatic congestion vs ischemia (poor perfusion) - Downtrending - Viral hep panel negative History of CHF - Aspirin, BB, Statin - Lasix 40mg PO BID History of Hypertension - BP stable - Continue home Metoprolol Succinate 50 bid - Losartan 25mg PO daily - Hold Hydralazine patient is normotensive History of Diabetes - Patient takes Humilin R U-500, 300u ACB and 200u HS at home - Insulin sliding scale med - Increased levimir to 15u AMHS - Start Regular insulin 10u AC - Recent A1c on 04/13 was 8.6% History of Anxiety/Depression - Resume home Wellbutrin, Xanax, Zoloft History of Chronic back pain - Resume home Gabapentin, Cyclobenzaprine, Voltaren, Naproxen Prophylaxis: Protonix, Heparin Heart Healthy, Moderate CHO Diet Patient discussed and plan reviewed with attending Dr. Lake <Landy Lake - Last Filed: 05/15/17 15:27> Objective - Vital Signs/Intake and Output Vital Signs (last 24 hours): Temp Pulse Resp BP Pulse Ox 97.8 F 61 16 123/62 92 L 05/15/17 06:00 05/15/17 09:30 05/15/17 06:00 05/15/17 09:30 05/15/17 06:00 Intake and Output: 05/15/17 05/15/17 06:59 18:59 Intake Total 840 780 Output Total 700 Balance 140 780 - Medications Medications: Current Medications Albuterol/Ipratropium (Duoneb 3 Mg/0.5 Mg (3 Ml) Ud) 3 ml IH TIDRESP [facility] Last Admin: 05/15/17 14:08 Dose: 3 ml Alprazolam (Xanax) 0.5 mg PO DAILY PRN; Protocol PRN Reason: Anxiety Last Admin: 05/14/17 22:25 Dose: 0.5 mg Aspirin (Aspirin Chewable) 81 mg PO DAILY [facility] Last Admin: 05/15/17 09:31 Dose: 81 mg Atorvastatin Calcium (Lipitor) 20 mg PO HS [facility] Last Admin: 05/14/17 22:16 Dose: 20 mg Benzocaine/Menthol (Cepacol Sore Throat) 1 yoko MM BID PRN PRN Reason: Sore Throat Bupropion HCl (Wellbutrin Sr 150 Mg) 150 mg PO DAILY [facility] Last Admin: 05/15/17 09:30 Dose: 150 mg Cyclobenzaprine HCl (Flexeril) 10 mg PO TID PRN PRN Reason: Muscle spasm Furosemide (Lasix) 40 mg PO BID [facility] Last Admin: 05/15/17 09:30 Dose: 40 mg Gabapentin (Neurontin) 600 mg PO QID [facility] PRN Reason: Protocol Last Admin: 05/15/17 14:01 Dose: 600 mg Heparin Sodium (Porcine) (Heparin) 5,000 units SC Q12 IVÁN PRN Reason: Protocol Last Admin: 05/15/17 09:31 Dose: 5,000 units Insulin Detemir (Levemir) 20 unit SC [facility] Last Admin: 05/15/17 09:30 Dose: 20 unit Insulin Human Lispro (Humalog Med) 0 units SC ACHS [facility] PRN Reason: Protocol Last Admin: 05/15/17 12:07 Dose: 5 units Insulin Human Regular (Humulin R) 15 units SC AC [facility] Last Admin: 05/15/17 12:08 Dose: 15 units Losartan Potassium (Cozaar) 25 mg PO DAILY [facility] Last Admin: 05/15/17 09:25 Dose: 25 mg Metoprolol Succinate (Toprol Xl) 50 mg PO BID [facility] Last Admin: 05/15/17 09:30 Dose: 50 mg Diclofenac Sodium [ (Voltaren] 1% Gel) 0 gm TP QID [facility] Last Admin: 05/15/17 09:33 Dose: Not Given Vortioxetine Hydrobromide [ Trintellix] 10 Mg 10 mg PO DAILY [facility] Last Admin: 05/15/17 09:33 Dose: Not Given Pantoprazole Sodium (Protonix Ec Tab) 40 mg PO DAILY [facility] Last Admin: 05/15/17 09:31 Dose: 40 mg Potassium Chloride (K-Dur 20 Meq Er Tab) 20 meq PO DAILY [facility] Last Admin: 05/15/17 09:31 Dose: 20 meq Prednisone (Prednisone Tab) 40 mg PO DAILY [facility] Last Admin: 05/15/17 09:31 Dose: 40 mg Sertraline HCl (Zoloft) 100 mg PO DAILY [facility] Last Admin: 05/15/17 09:30 Dose: 100 mg - Labs Labs: 05/15/17 06:30 05/15/17 06:30 PT 11.8 SECONDS (9.4-12.5) 05/10/17 15:45 INR 1.03 (0.93-1.08) 05/10/17 15:45 APTT 28.9 Seconds (25.1-36.5) 05/10/17 15:45 Attending/Attestation - Attestation I have personally seen and examined this patient.: Yes I have fully participated in the care of the patient.: Yes I have reviewed all pertinent clinical information, including history, physical exam and plan: Yes Notes (Text): 05/15/17 15:26 Medical record note made by the resident after discussion with my direction and input after the patient was personally seen and examined by me. I have reviewed the chart and agree that the record accurately reflects by personal performance of the history, physical exam, data review, and medical decision-making, in the course for the patient. I have also personally directed the plan of care Patient is stable at base line.Dyspnea has improved.He is awaiting for home oxygen prior to discharge .
[2017-05-13] MEDS: Albuterol-Ipratrop 3 mg / 0.5 (3 ml) UD IH SCH (19:25)
[2017-05-14 06:24] LABS: HEMOGLOBIN 12.2 g/dL (14.0-18.0); MEAN CORPUSCULAR HEMOGLOBIN 28.4 pg (25.0-35.0); MEAN CORPUSCULAR HGB CONC 32.6 g/dl (31.0-37.0); MEAN PLATELET VOLUME 9.9 fl (7.0-11.0); RBC 4.3 10^6/uL (3.5-6.1); RED CELL DISTRIBUTION WIDTH 13.5 % (11.5-14.5); WHITE BLOOD COUNT 7.8 10^3/ul (4.5-11.0)
[2017-05-14 06:51] LABS: ALB/GLOB RATIO 1.1 (1.1-1.8); ALT/SGPT 97 U/L (7-56); AST/SGOT 56 U/L (17-59); BLOOD UREA NITROGEN 27 mg/dL (7-21); CALCIUM 10.1 mg/dL (8.4-10.5); GFR AFRICAN-AMERICAN > 60; GFR NON-AFRICAN AMERICAN > 60
[2017-05-14] MEDS: Insulin Regular 1 UNITS/0.01 ML ML SC SCH ×3 (08:12→17:34)
[2017-05-14] MEDS: Insulin Lispro (humaLOG) MEDIUM Coverage SC SCH ×4 (08:12→22:13)
[2017-05-14] MEDS: Albuterol-Ipratrop 3 mg / 0.5 (3 ml) UD IH SCH ×3 (08:25→21:00)
[2017-05-14] MEDS: Metoprolol Succinate 50 mg XL Tab PO SCH ×2 (09:46→17:35)
[2017-05-14] MEDS: Potassium Chloride 20 mEq ER Tab PO SCH (09:47)
[2017-05-14] MEDS: Pantoprazole 40 mg EC Tab PO SCH (09:47)
[2017-05-14] MEDS: Insulin Detemir 100 units/ml Vial (Levemir) SC SCH ×2 (09:47→22:16)
[2017-05-14] MEDS: buPROPion SR 150 MG TABLET PO SCH (09:47)
--- NOTE | 2017-05-14 14:06 | CP.PCM.PN ---
<Paula Lee - Last Filed: 05/14/17 13:57> Subjective - Date & Time of Evaluation Date of Evaluation: 05/14/17 Time of Evaluation: 07:30 - Subjective Subjective: Paula Rosa DO PGY1 - IM Progress Note Patient seen and examined at bedside. Per nursing staff, no acute events overnight. Patient reports slight improvement in his shortness of breath, though nebulized breathing treatment did not help much. Patient did have transient nosebleed with the nasal oxygen. He denies any chest pain, fever, chills, abdominal pain, nausea, vomiting, diarrhea, constipation. Objective - Vital Signs/Intake and Output Vital Signs (last 24 hours): Temp Pulse Resp BP Pulse Ox 97.6 F 56 L 18 140/70 98 05/14/17 11:52 05/14/17 11:52 05/14/17 11:52 05/14/17 11:52 05/14/17 06:00 Intake and Output: 05/14/17 05/14/17 06:59 18:59 Intake Total 600 Balance 600 - Medications Medications: Current Medications Albuterol/Ipratropium (Duoneb 3 Mg/0.5 Mg (3 Ml) Ud) 3 ml IH TIDRESP [facility] Last Admin: 05/14/17 13:50 Dose: 3 ml Alprazolam (Xanax) 0.5 mg PO DAILY PRN; Protocol PRN Reason: Anxiety Last Admin: 05/13/17 22:21 Dose: 0.5 mg Aspirin (Aspirin Chewable) 81 mg PO DAILY [facility] Last Admin: 05/14/17 09:46 Dose: 81 mg Atorvastatin Calcium (Lipitor) 20 mg PO HS [facility] Last Admin: 05/13/17 22:21 Dose: 20 mg Benzocaine/Menthol (Cepacol Sore Throat) 1 yoko MM BID PRN PRN Reason: Sore Throat Bupropion HCl (Wellbutrin Sr 150 Mg) 150 mg PO DAILY [facility] Last Admin: 05/14/17 09:47 Dose: 150 mg Cyclobenzaprine HCl (Flexeril) 10 mg PO TID PRN PRN Reason: Muscle spasm Furosemide (Lasix) 40 mg PO BID [facility] Last Admin: 05/14/17 09:47 Dose: 40 mg Gabapentin (Neurontin) 600 mg PO QID [facility] PRN Reason: Protocol Last Admin: 05/14/17 09:47 Dose: 600 mg Heparin Sodium (Porcine) (Heparin) 5,000 units SC Q12 [facility] PRN Reason: Protocol Last Admin: 05/14/17 09:47 Dose: 5,000 units Insulin Detemir (Levemir) 15 unit SC AMHS [facility] Last Admin: 05/14/17 09:47 Dose: 15 unit Insulin Human Lispro (Humalog Med) 0 units SC ACHS [facility] PRN Reason: Protocol Last Admin: 05/14/17 12:04 Dose: 7 units Insulin Human Regular (Humulin R) 15 units SC AC [facility] Losartan Potassium (Cozaar) 25 mg PO DAILY [facility] Last Admin: 05/14/17 09:46 Dose: 25 mg Metoprolol Succinate (Toprol Xl) 50 mg PO BID [facility] Last Admin: 05/14/17 09:46 Dose: 50 mg Diclofenac Sodium [ (Voltaren] 1% Gel) 0 gm TP QID [facility] Last Admin: 05/14/17 09:48 Dose: Not Given Vortioxetine Hydrobromide [ Trintellix] 10 Mg 10 mg PO DAILY [facility] Last Admin: 05/14/17 09:48 Dose: Not Given Pantoprazole Sodium (Protonix Ec Tab) 40 mg PO DAILY [facility] Last Admin: 05/14/17 09:47 Dose: 40 mg Potassium Chloride (K-Dur 20 Meq Er Tab) 20 meq PO DAILY [facility] Last Admin: 05/14/17 09:47 Dose: 20 meq Sertraline HCl (Zoloft) 100 mg PO DAILY [facility] Last Admin: 05/14/17 09:47 Dose: 100 mg - Labs Labs: 05/14/17 06:00 05/14/17 06:00 PT 11.8 SECONDS (9.4-12.5) 05/10/17 15:45 INR 1.03 (0.93-1.08) 05/10/17 15:45 APTT 28.9 Seconds (25.1-36.5) 05/10/17 15:45 - Additional Findings Additional findings: - Constitutional Appears: Non-toxic, No Acute Distress, Other (Obese) - Head Exam Head Exam: ATRAUMATIC, NORMOCEPHALIC - Eye Exam Eye Exam: EOMI, Normal appearance, PERRL - ENT Exam ENT Exam: Mucous Membranes Moist - Neck Exam Neck Exam: Full ROM, Normal Inspection - Respiratory Exam Respiratory Exam: Decreased Breath Sounds, NORMAL BREATHING PATTERN. absent: Rhonchi, Rales, Wheezes, Respiratory Distress, Stridor - Cardiovascular Exam Cardiovascular Exam: RRR, +S1, +S2. absent: Bradycardia, Tachycardia - GI/Abdominal Exam GI & Abdominal Exam: Soft, Normal Bowel Sounds. absent: Tenderness - Extremities Exam Extremities Exam: Pedal Edema (1+, pitting, to knees). absent: Calf Tenderness - Neurological Exam Neurological Exam: Alert, Awake, Oriented x3 - Psychiatric Exam Psychiatric exam: Normal Affect, Normal Mood - Skin Skin Exam: Dry, Intact, Normal Color Assessment and Plan - Assessment and Plan (Free Text) Assessment: 56 year old male with PMH of hypertension, COPD, diabetes, anxiety, depression, back pain, and IBS presents with shortness of breath and mild chest pain. Patient was hypoxic on RA with ambulation after 180 feet; requires home oxygen. Plan Shortness of Breath likely 2/2 CHF exacerbation vs COPD vs chronic PE vs restrictive, insterstitial lung disease vs STEVENSON - Patient has history of mild-moderate pulm HTN, as seen on echocardiogram done 04/14 - Continue lasix 40mg PO BID - V/Q scan reported as low probability of PE; unlikely chronic PE - PFT complete done yesterday show obstructive pattern, improved with bronchodilators; official read pending - Patient did not tolerate 6 minute walk test, desaturated to 87% on room air and patient was symptomatic after one minute; again patient did not tolerate ambulation on room air yesterday with PT, desaturated to 84% after about 180 feet. - Patient will require home O2 for COPD and hypoxemia - Continuous O2 2LNC - Started duonebs TID SCHD yesterday - Continue course of PO prednisone - Requested pulm consult, Dr. Saxena - Cardiology consulted, Dr. Ramírez Transaminemia likely 2/2 hepatic congestion vs ischemia (poor perfusion) - Downtrending - Viral hep panel negative History of CHF - Aspirin, BB, Statin - Lasix 40mg PO BID History of Hypertension - BP stable - Continue home Metoprolol Succinate 50 bid - Losartan 25mg PO daily - Hold Hydralazine patient is normotensive History of Diabetes - Patient takes Humilin R U-500, 300u ACB and 200u HS at home - Insulin sliding scale med - Blood sugar remains uncontrolled - Will increase Regular insulin to 15u AC and monitor response; consider increasing levimir to 20u AMHS based on response - Recent A1c on 04/13 was 8.6% History of Anxiety/Depression - Continue home Wellbutrin, Xanax, Zoloft History of Chronic back pain - Continue home Gabapentin, Cyclobenzaprine, Voltaren, Naproxen Prophylaxis: Protonix, Heparin Heart Healthy, Moderate CHO Diet Patient discussed and plan reviewed with attending Dr. Lake <Landy Lake - Last Filed: 05/15/17 15:34> Objective - Vital Signs/Intake and Output Vital Signs (last 24 hours): Temp Pulse Resp BP Pulse Ox 97.8 F 61 16 123/62 92 L 05/15/17 06:00 05/15/17 09:30 05/15/17 06:00 05/15/17 09:30 05/15/17 06:00 Intake and Output: 05/15/17 05/15/17 06:59 18:59 Intake Total 840 780 Output Total 700 Balance 140 780 - Medications Medications: Current Medications Albuterol/Ipratropium (Duoneb 3 Mg/0.5 Mg (3 Ml) Ud) 3 ml IH [facility]P [facility] Last Admin: 05/15/17 14:08 Dose: 3 ml Alprazolam (Xanax) 0.5 mg PO DAILY PRN; Protocol PRN Reason: Anxiety Last Admin: 05/14/17 22:25 Dose: 0.5 mg Aspirin (Aspirin Chewable) 81 mg PO DAILY [facility] Last Admin: 05/15/17 09:31 Dose: 81 mg Atorvastatin Calcium (Lipitor) 20 mg PO HS [facility] Last Admin: 05/14/17 22:16 Dose: 20 mg Benzocaine/Menthol (Cepacol Sore Throat) 1 yoko MM BID PRN PRN Reason: Sore Throat Bupropion HCl (Wellbutrin Sr 150 Mg) 150 mg PO DAILY [facility] Last Admin: 05/15/17 09:30 Dose: 150 mg Cyclobenzaprine HCl (Flexeril) 10 mg PO TID PRN PRN Reason: Muscle spasm Furosemide (Lasix) 40 mg PO BID [facility] Last Admin: 05/15/17 09:30 Dose: 40 mg Gabapentin (Neurontin) 600 mg PO QID [facility] PRN Reason: Protocol Last Admin: 05/15/17 14:01 Dose: 600 mg Heparin Sodium (Porcine) (Heparin) 5,000 units SC Q12 [facility] PRN Reason: Protocol Last Admin: 05/15/17 09:31 Dose: 5,000 units Insulin Detemir (Levemir) 20 unit SC [facility] Last Admin: 05/15/17 09:30 Dose: 20 unit Insulin Human Lispro (Humalog Med) 0 units SC ACHS [facility] PRN Reason: Protocol Last Admin: 05/15/17 12:07 Dose: 5 units Insulin Human Regular (Humulin R) 15 units SC AC [facility] Last Admin: 05/15/17 12:08 Dose: 15 units Losartan Potassium (Cozaar) 25 mg PO DAILY [facility] Last Admin: 05/15/17 09:25 Dose: 25 mg Metoprolol Succinate (Toprol Xl) 50 mg PO BID [facility] Last Admin: 05/15/17 09:30 Dose: 50 mg Diclofenac Sodium [ (Voltaren] 1% Gel) 0 gm TP QID [facility] Last Admin: 05/15/17 09:33 Dose: Not Given Vortioxetine Hydrobromide [ Trintellix] 10 Mg 10 mg PO DAILY [facility] Last Admin: 05/15/17 09:33 Dose: Not Given Pantoprazole Sodium (Protonix Ec Tab) 40 mg PO DAILY [facility] Last Admin: 05/15/17 09:31 Dose: 40 mg Potassium Chloride (K-Dur 20 Meq Er Tab) 20 meq PO DAILY [facility] Last Admin: 05/15/17 09:31 Dose: 20 meq Prednisone (Prednisone Tab) 40 mg PO DAILY [facility] Last Admin: 05/15/17 09:31 Dose: 40 mg Sertraline HCl (Zoloft) 100 mg PO DAILY [facility] Last Admin: 05/15/17 09:30 Dose: 100 mg - Labs Labs: 05/15/17 06:30 05/15/17 06:30 PT 11.8 SECONDS (9.4-12.5) 05/10/17 15:45 INR 1.03 (0.93-1.08) 05/10/17 15:45 APTT 28.9 Seconds (25.1-36.5) 05/10/17 15:45 Attending/Attestation - Attestation I have personally seen and examined this patient.: Yes I have fully participated in the care of the patient.: Yes I have reviewed all pertinent clinical information, including history, physical exam and plan: Yes Notes (Text): 05/15/17 15:30 Medical record note made by the resident after discussion with my direction and input after the patient was personally seen and examined by me. I have reviewed the chart and agree that the record accurately reflects by personal performance of the history, physical exam, data review, and medical decision-making, in the course for the patient. I have also personally directed the plan of care Patient is stable at base line.He is awaiting for home oxygen prior to discharge. Patient blood sugars are high due to prednisone , will continue adjusting medication.After discharge, patient will go back to his U 500 regimen.
[2017-05-15 07:20] LABS: HEMOGLOBIN 11.8 g/dL (14.0-18.0); MEAN CELL VOLUME 86.3 fl (80.0-105.0); MEAN CORPUSCULAR HEMOGLOBIN 28.3 pg (25.0-35.0); MEAN CORPUSCULAR HGB CONC 32.8 g/dl (31.0-37.0); MEAN PLATELET VOLUME 9.9 fl (7.0-11.0); RBC 4.17 10^6/uL (3.5-6.1); RED CELL DISTRIBUTION WIDTH 13.5 % (11.5-14.5); WHITE BLOOD COUNT 9.2 10^3/ul (4.5-11.0)
[2017-05-15 08:02] LABS: ALBUMIN 3.9 g/dL (3.0-4.8); BLOOD UREA NITROGEN 24 mg/dL (7-21); CALCIUM 9.8 mg/dL (8.4-10.5); GFR AFRICAN-AMERICAN > 60; GFR NON-AFRICAN AMERICAN > 60
[2017-05-15 08:03] LABS: ALB/GLOB RATIO 1.2 (1.1-1.8); ALT/SGPT 91 U/L (7-56); AST/SGOT 43 U/L (17-59)
[2017-05-15] MEDS: Insulin Lispro (humaLOG) MEDIUM Coverage SC SCH ×2 (08:16→12:07)
[2017-05-15] MEDS: Insulin Regular 1 UNITS/0.01 ML ML SC SCH ×2 (08:17→12:08)
[2017-05-15 08:23] VITALS: RESP 16; TEMP 97.8; O2SAT 92
[2017-05-15] MEDS: Albuterol-Ipratrop 3 mg / 0.5 (3 ml) UD IH SCH ×2 (08:29→14:08)
[2017-05-15] MEDS ORDERED: Insulin Detemir 100 units/ml Vial (Levemir) SC SCH (09:01)
[2017-05-15] MEDS: buPROPion SR 150 MG TABLET PO SCH (09:30)
[2017-05-15] MEDS: Metoprolol Succinate 50 mg XL Tab PO SCH (09:30)
[2017-05-15] MEDS: Potassium Chloride 20 mEq ER Tab PO SCH (09:31)
[2017-05-15] MEDS: Pantoprazole 40 mg EC Tab PO SCH (09:31)
[2017-05-15 09:41] VITALS: BP 123/62; PULSE 61
--- NOTE | 2017-05-15 12:21 | CP.PCM.DIS ---
Provider - Provider Date of Admission: 05/12/17 14:32 Attending physician: Landy Lake MD Consults: Cardio: [place] Pulm: [place] Time Spent in preparation of Discharge (in minutes): 65 Diagnosis - Discharge Diagnosis (1) COPD (chronic obstructive pulmonary disease) Status: Acute (2) Hypoxia Status: Acute Priority: High (3) Acute renal failure Status: Acute (4) Diastolic CHF Status: Acute Priority: High Hospital Course - Lab Results Lab Results: Most Recent Lab Values WBC 9.2 10^3/ul (4.5-11.0) 05/15/17 06:30 RBC 4.17 10^6/uL (3.5-6.1) 05/15/17 06:30 Hgb 11.8 g/dL (14.0-18.0) L 05/15/17 06:30 Hct 36.0 % (42.0-52.0) L 05/15/17 06:30 MCV 86.3 fl (80.0-105.0) 05/15/17 06:30 MCH 28.3 pg (25.0-35.0) 05/15/17 06:30 MCHC 32.8 g/dl (31.0-37.0) 05/15/17 06:30 RDW 13.5 % (11.5-14.5) 05/15/17 06:30 Plt Count 240 10^3/uL (120.0-450.0) 05/15/17 06:30 MPV 9.9 fl (7.0-11.0) 05/15/17 06:30 Gran % 62.1 % (50.0-68.0) 05/10/17 15:45 Lymph % (Auto) 26.6 % (22.0-35.0) 05/10/17 15:45 [place] % (Auto) 8.0 % (1.0-6.0) H 05/10/17 15:45 Eos % (Auto) 2.6 % (1.5-5.0) 05/10/17 15:45 Baso % (Auto) 0.7 % (0.0-3.0) 05/10/17 15:45 Gran # 4.59 (1.4-6.5) 05/10/17 15:45 Lymph # (Auto) 2.0 (1.2-3.4) 05/10/17 15:45 [place] # (Auto) 0.6 (0.1-0.6) 05/10/17 15:45 Eos # (Auto) 0.2 (0.0-0.7) 05/10/17 15:45 Baso # (Auto) 0.05 K/mm3 (0.0-2.0) 05/10/17 15:45 PT 11.8 SECONDS (9.4-12.5) 05/10/17 15:45 INR 1.03 (0.93-1.08) 05/10/17 15:45 APTT 28.9 Seconds (25.1-36.5) 05/10/17 15:45 Sodium 141 mmol/L (132-148) 05/15/17 06:30 Potassium 3.9 mmol/L (3.6-5.0) 05/15/17 06:30 Chloride 101 mmol/L (98-107) 05/15/17 06:30 Carbon Dioxide 29 mmol/L (21-33) 05/15/17 06:30 Anion Gap 14 (10-20) 05/15/17 06:30 BUN 24 mg/dL (7-21) H 05/15/17 06:30 Creatinine 0.9 mg/dl (0.8-1.5) 05/15/17 06:30 Est GFR ( Amer) > 60 05/15/17 06:30 Est GFR (Non-Af Amer) > 60 05/15/17 06:30 POC Glucose (mg/dL) 288 mg/dL (65-110) H 05/15/17 02:00 Random Glucose 327 mg/dL (70-110) H* 05/15/17 06:30 Calcium 9.8 mg/dL (8.4-10.5) 05/15/17 06:30 Phosphorus 2.9 mg/dL (2.5-4.5) 05/13/17 05:30 Magnesium 1.9 mg/dL (1.7-2.2) 05/13/17 05:30 Total Bilirubin 0.5 mg/dL (0.2-1.3) 05/15/17 06:30 AST 43 U/L (17-59) 05/15/17 06:30 ALT 91 U/L (7-56) H 05/15/17 06:30 Alkaline Phosphatase 92 U/L (38-126) 05/15/17 06:30 Lactate Dehydrogenase 625 U/L (333-699) 05/11/17 13:40 Total Creatine Kinase 71 U/L (35-230) 05/11/17 13:40 Troponin I < 0.01 ng/mL 05/11/17 13:40 NT-Pro-B Natriuret Pep 57.3 pg/mL (0-450) 05/10/17 15:45 Total Protein 7.2 g/dL (5.8-8.3) 05/15/17 06:30 Albumin 3.9 g/dL (3.0-4.8) 05/15/17 06:30 Globulin 3.3 gm/dL 05/15/17 06:30 Albumin/Globulin Ratio 1.2 (1.1-1.8) 05/15/17 06:30 Procalcitonin 0.06 NG/ML (0.19-0.49) L 05/11/17 06:30 Urine Color Yellow (YELLOW) 05/10/17 16:00 Urine Appearance Clear (CLEAR) 05/10/17 16:00 Urine pH 6.0 (4.7-8.0) 05/10/17 16:00 Ur Specific [place] 1.010 (1.005-1.035) 05/10/17 16:00 Urine Protein Negative mg/dL (<30 mg/dL) 05/10/17 16:00 Urine Glucose (UA) Negative mg/dL (NEGATIVE) 05/10/17 16:00 Urine Ketones Negative mg/dL (NEGATIVE) 05/10/17 16:00 Urine Blood Negative (NEGATIVE) 05/10/17 16:00 Urine Nitrate Negative (NEGATIVE) 05/10/17 16:00 Urine Bilirubin Negative (NEGATIVE) 05/10/17 16:00 Urine Urobilinogen 0.2 E.U./dL (<1 E.U./dL) 05/10/17 16:00 Ur Leukocyte Esterase Negative Marie/uL (NEGATIVE) 05/10/17 16:00 Rheumatoid Factor IgG TNP 05/11/17 13:40 Rheumatoid Factor IgA TNP 05/11/17 13:40 Rheumatoid Factor IgM TNP 05/11/17 13:40 PEEWEE Screen Negative (Negative) 05/11/17 13:40 Hepatitis A IgM Ab Negative (NEGATIVE) 05/10/17 15:30 Hep Bs Antigen Negative (NEGATIVE) 05/10/17 15:30 Hep B Core IgM Ab Negative (NEGATIVE) 05/10/17 15:30 Hepatitis C Antibody Negative (NEGATIVE) 05/10/17 15:30 - Hospital Course Hospital Course: 56 year old male with past medical history of hypertension, COPD, diabetes, anxiety, depression, and IBS who initially presents to the hospital for 1 day of shortness of breath and chest pain, noted to be progressive in nature. During his hospitalization, patient was treated in the ER for CHF vs COPD exacerbation. Patient was noted to have a history of mild pulmonary hypertension likely 2/2 COPD. He had PFT done which showed obstructive pattern, improved with bronchodilators, consistent with COPD. He was also noted to be hypoxic when ambulating <100 feet, saturation dropped as low as 84% on room air. Patient was started on nebulized breathing treatments and continuous oxygen , with marked symptomatic improvement. During his hospitalization, he was also worked up for acute and chronic PE's, but had negative CTA and low risk V/Q scan. He was also treated for insulin dependant resistant diabetes, HTN, anxiety /depression, and mild transaminemia. Today, patient feels much better overall. Denies any shortness of breath while on oxygen. Feels significantly better after nebulized breathing treatments. He denies any chest pain, shortness of breath, abdominal pain, fever, chills, nausea, vomiting, diarrhea, constipation. Patient was started on continuous home oxygen and supplies were delivered to him. He was given prescription for rescue inhaler and instructions on follow up. All questions were answered to his satisfaction, and he was discharged to home. Discharge Exam - Head Exam Head Exam: NORMAL INSPECTION - Eye Exam Eye Exam: EOMI, Normal appearance, PERRL - ENT Exam ENT Exam: Mucous Membranes Moist - Neck Exam Neck exam: Normal Inspection - Respiratory Exam Respiratory Exam: Clear to PA & Lateral, NORMAL BREATHING PATTERN - Cardiovascular Exam Cardiovascular Exam: RRR, +S1, +S2 - GI/Abdominal Exam GI & Abdominal Exam: Normal Bowel Sounds, Soft. absent: Tenderness - Extremities Exam Extremities exam: normal inspection Additional comments: 1+ pitting edema to knees - Neurological Exam Neurological exam: Alert, Oriented x3 - Psychiatric Exam Psychiatric exam: Normal Affect, Normal Mood - Skin Skin Exam: Dry, Intact, Normal Color Discharge Plan - Discharge Medications Prescriptions: Albuterol HFA [Ventolin HFA 90 mcg/actuation (8 g)] 2 puff IH [id number] PRN #1 inhaler PRN Reason: Wheezing Budesonide [Pulmicort Flexhaler] 180 mcg IH BID #1 aer.[email or web address] - Follow Up Plan Condition: FAIR Disposition: HOME/ ROUTINE Instructions: Heart Failure, Adult (DC), Exacerbation of COPD (DC), Breathing Exercises, Chest Pain (DC) Additional Instructions: 1. Follow up with your primary care doctor within one week 2. Follow up with your band edger within 1 month, for outpatient sleep study , monitoring and titration of home oxygen, and monitoring of COPD 3. Follow up with your assistant director within 1 month, to consider outpatient stress test 4. Continue to use the Oxygen at 2 liters by nasal cannula 5. Use the albuterol inhaler, 2 puffs every 6 hours as needed for wheezing/ shortness of breath 6. Continue all other medication as previously prescribed 7. Decrease lasix to 40mg twice daily 8. For any new or worsening concerns, contact your PCP immediately or return to the ER
== END 2017-05-15 17:06 | disposition home or self-care (01) | DRG 127 ==
LOC: ED 15:22 → ERH 17:55 → 2RNO 21:39 → OBSVTOIN 05-12 14:32 → 5RSO 05-14 16:39
PROVIDERS: ADMIT Internal Medicine; ATTEND Internal Medicine
PROC: 3E0F7GC Introduction of Other Therapeutic Substance into Respiratory Tract, Via Natural or Artificial Opening (ICD-10-PCS; principal; 2017-05-13)
DX: I11.0 Hypertensive heart disease with heart failure (principal); I27.20 Pulmonary hypertension, unspecified; Z99.81 Dependence on supplemental oxygen; E86.0 Dehydration; E66.01 Morbid (severe) obesity due to excess calories; E83.52 Hypercalcemia; J44.9 Chronic obstructive pulmonary disease, unspecified; I50.32 Chronic diastolic (congestive) heart failure; E11.9 Type 2 diabetes mellitus without complications; K21.9 Gastro-esophageal reflux disease without esophagitis; E78.00 Pure hypercholesterolemia, unspecified; M54.9 Dorsalgia, unspecified; G89.29 Other chronic pain; G47.33 Obstructive sleep apnea (adult) (pediatric); F41.9 Anxiety disorder, unspecified; K58.9 Irritable bowel syndrome, unspecified; Z87.891 Personal history of nicotine dependence

== ENCOUNTER 2017-07-24 11:13 | Day surgery (SDC) | payer MEDICAID ==
[2017-07-14 11:00] VITALS: BMI 43.2
[2017-07-24] MEDS ORDERED: Propofol 10 mg/ml Inj (20 ML) ONE (13:00)
[2017-07-24] MEDS ORDERED: Sodium Chloride 0.9% 1,000 ML IV SCH (13:00)
[2017-07-24] MEDS ORDERED: Etomidate 20 mg/10ml Inj IV ONE (13:37)
[2017-07-24 14:10] VITALS: O2SAT 98
[2017-07-24 14:48] VITALS: BP 144/69; PULSE 83; RESP 21; TEMP 98.3
== END 2017-07-24 15:13 | disposition home or self-care (01) ==
LOC: ENDO 11:13
PROVIDERS: ATTEND Internal Medicine
DX: K64.8 Other hemorrhoids (principal); Z86.010 Personal history of colon polyps; R10.13 Epigastric pain; K58.0 Irritable bowel syndrome with diarrhea; K76.0 Fatty (change of) liver, not elsewhere classified; I10 Essential (primary) hypertension; E11.9 Type 2 diabetes mellitus without complications; H40.9 Unspecified glaucoma; F41.9 Anxiety disorder, unspecified; F32.89 Other specified depressive episodes; Z83.3 Family history of diabetes mellitus; Z80.3 Family history of malignant neoplasm of breast
CPT/HCPCS: 45378; J7030

== ENCOUNTER 2017-08-14 14:59 | Emergency (ER) | payer MEDICAID ==
[2017-08-14 14:59] VITALS: BMI 43.2
[2017-08-14 15:56] VITALS: RESP 18; TEMP 98.1
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
[2017-08-14 17:15] LABS: PH,URINE 6.5 (4.7-8.0); URINE APPEARANCE CLEAR (CLEAR); URINE BILIRUBIN NEGATIVE (NEGATIVE); URINE BLOOD NEGATIVE (NEGATIVE); URINE COLOR YELLOW (YELLOW); URINE GLUCOSE (UA) NEGATIVE (NEGATIVE); URINE LEUKOCYTE ESTERASE NEGATIVE Leu/uL (NEGATIVE); URINE PROTEIN TRACE mg/dL (<30 mg/dL); URINE UROBILINOGEN 0.2 E.U./dL (<1 E.U./dL)
[2017-08-14 17:25] LABS: URINE BACTERIA NEG (NEG); URINE RBC NEGATIVE /hpf (0-2); URINE WBC NEGATIVE /hpf (0-6)
--- NOTE | 2017-08-14 18:06 | CT ---
PROCEDURE: CT Abdomen and Pelvis without intravenous contrast HISTORY: right groin pain COMPARISON: Noncontrast abdomen and pelvis CT 02/03/2017. TECHNIQUE: Helical CT of the abdomen and pelvis was performed without oral or intravenous contrast as per referring physician request. Contrast dose: 9 Radiation dose: Total exam DLP = 1595.78 mGy-cm. This CT exam was performed using one or more of the following dose reduction techniques: Automated exposure control, adjustment of the mA and/or kV according to patient size, and/or use of iterative reconstruction technique. FINDINGS: Low quality examination given lack of oral as well as intravenous contrast agents. LOWER THORAX: Mild cardiomegaly reiterated as well as limited bilateral basilar dependent atelectasis. Small hiatal hernia reiterated. LIVER: Unremarkable. No gross lesion or ductal dilatation. GALLBLADDER AND BILE DUCTS: Unremarkable. PANCREAS: Unremarkable. No gross lesion or ductal dilatation. SPLEEN: Unremarkable. ADRENALS: A benign left adrenal adenoma is reiterated measuring 2.7 x 1.8 cm and -10 Hounsfield units. KIDNEYS AND URETERS: Unremarkable. No hydronephrosis. No solid mass. VASCULATURE: Unremarkable. No aortic aneurysm. BOWEL: Unremarkable. No obstruction. No gross mural thickening. APPENDIX: Unremarkable. Normal appendix. PERITONEUM: Unremarkable. No free fluid. No free air. LYMPH NODES: Unremarkable. No enlarged lymph nodes. BLADDER: Unremarkable. REPRODUCTIVE: Unremarkable. BONES: No acute fracture. OTHER FINDINGS: No inguinal hernia identified. IMPRESSION: 1. No radiodense urolithiasis, obstructive uropathy or perinephric reaction bilaterally. Unremarkable appearing urinary bladder. 2. Normal appearing appendix. 3. Stable benign left adrenal adenoma.
[2017-08-14 18:36] VITALS: O2SAT 98
[2017-08-14 18:38] VITALS: BP 136/57; PULSE 57
== END 2017-08-14 18:38 | disposition home or self-care (01) ==
LOC: ED 14:59
DX: R10.31 Right lower quadrant pain (principal); E11.9 Type 2 diabetes mellitus without complications; I10 Essential (primary) hypertension; E78.5 Hyperlipidemia, unspecified; Z87.891 Personal history of nicotine dependence

== ENCOUNTER 2018-05-05 09:52 | Outpatient (CLI) | payer MEDICAID | END 2018-05-05 09:53 | disposition home or self-care (01) | LOC: PULMO 09:52 ==